=== PATIENT | male | born 1960 | race Caucasian/White ===

== ENCOUNTER 2016-10-02 18:02 | Emergency (ER) | payer OTHER ==
--- NOTE | 2016-10-02 18:19 | ED ---
General Adult HPI - General Stated complaint: fall,back pain Time Seen by Provider: 10/02/16 18:06 Source: RN notes reviewed - History of Present Illness Initial comments: 56-year-old male presents to the emergency Department chief complaint of fall. Patient states that he is going down his stairs and he missed a step and he fell down about 5 stairs. Patient states that he will abdominal stairs. Patient states he is having some left-sided rib pain. Patient does admit to some right shoulder pain as well. Patient states the pain is mild worse to movement or a deep breath. Patient states there is no radiation. Patient states constant and painful. Patient denies any leg pain. Patient states he did not hit his head there is no loss of consciousness. Patient states that he was concerned due to the rib pains without that he should be evaluated. Patient states he is not currently having any other symptoms at this time. Patient denies any recent fever, chills, shortness of breath, abdominal pain, nausea vomiting, numbness or tingling, dysuria or hematuria, constipation or diarrhea, headaches or visual changes, or any other current symptoms. - Related Data Home Medications Medication Instructions Recorded Confirmed OXcarbazepine [Trileptal] 300 mg PO DAILY 05/15/15 10/02/16 Methocarbamol [Robaxin] 500 mg PO TID 06/17/16 10/02/16 Mirtazapine [Remeron] 15 mg PO HS 06/17/16 10/02/16 Mometasone/Formoterol [Dulera 100 2 puff INHALATION RT-BID 06/17/16 10/02/16 Mcg/5 Mcg Inhaler] Venlafaxine HCl ER [Effexor Xr] 150 mg PO DAILY 06/17/16 10/02/16 Previous Rx's Medication Instructions Recorded Sennosides-Docusate Sodium 2 tab PO DAILY #60 tablet 06/23/16 [Senokot-S] Hydrocodone/Acetaminophen [[place] 1 each PO Q6HR PRN #20 tab 10/02/16 5-325] Allergies Allergy/AdvReac Type Severity Reaction Status Date / Time Penicillins Allergy Anaphylaxis Verified 10/02/16 19:04 Review of Systems ROS Statement: Those systems with pertinent positive or pertinent negative responses have been documented in the HPI. ROS Other: All systems not noted in ROS Statement are negative. Past Medical History Past Medical History: COPD, Osteoarthritis (OA) History of Any Multi-Drug Resistant Organisms: None Reported Past Surgical History: Hernia Repair, Orthopedic Surgery Additional Past Surgical History / Comment(s): LT SHOULDER SX Past Anesthesia/Blood Transfusion Reactions: No Reported Reaction Past Psychological History: Bipolar, Depression Smoking Status: Former smoker Past Alcohol Use History: None Reported Additional Past Alcohol Use History / Comment(s): QUIT SMOKING 60DAYS AGO. SMOKED 1/2 PPD FOR OVER 35 YRS Past Drug Use History: None Reported - Past Family History Mother History Unknown: Yes Additional Family Medical History / Comment(s): ADOPTED-FAMILY HX UNKNOWN General Exam - General Exam Comments Initial Comments: General: The patient is awake and alert, in no distress, and does not appear acutely ill. Eye: Pupils are equal, round and reactive to light, extra-ocular movements are intact; there is normal conjunctiva bilaterally. No signs of icterus. Ears, nose, mouth and throat: There are moist mucous membranes and no oral lesions. Neck: The neck is supple, there is no tenderness. Cardiovascular: There is a regular rate and rhythm. No murmur, rub or gallop is appreciated. Respiratory: Lungs are clear to auscultation, respirations are non-labored, breath sounds are equal. No wheezes, stridor, rales, or rhonchi. There is tenderness with patient along the posterior left rib cage in the lower aspect as well as along the lateral left rib cage Gastrointestinal: Soft, non-distended, non-tender abdomen without masses or organomegaly noted. There is no rebound or guarding present. No CVA tenderness. Bowel sounds are unremarkable. Back: There is no tenderness to palpation in the midline. There is no obvious deformity. No rashes noted. Musculoskeletal: Normal ROM, does have some tenderness over the anterior aspect of the right shoulder, There is no pedal edema. There is no calf tenderness or swelling. Sensation intact. Pulses equal bilaterally 2+. Neurological: CN II-XII intact, There are no obvious motor or sensory deficits. Coordination appears grossly intact. Speech is normal. Skin: Skin is warm and dry and no rashes or lesions are noted. Psychiatric: Cooperative, appropriate mood & affect, normal judgment. Course Vital Signs 10/02/16 18:20 Temperature 97.7 F Pulse Rate 71 Respiratory 14 Rate Blood Pressure 131/86 O2 Sat by Pulse 97 Oximetry Medical Decision Making - Medical Decision Making 56-year-old male presents for treatment of the stairs. This time we'll get x- rays as well as CT of the patient's head due to the nature of the fall. At this time x-rays and CAT scan are reviewed and negative with no acute process. The patient received Toradol injection. We did discuss the patient presenting for left-sided rib contusion and right shoulder sprain. We discussed follow-up and return parameters. We discussed the patient questions. He stated that he understood he is in agreement with plan. He will be discharged home. Disposition Clinical Impression: Contusion of rib on left side, Sprain of right shoulder, Fall Disposition: HOME SELF-CARE Condition: Stable Instructions: Rib Contusion (ED) Additional Instructions: Please use medication as discussed. Please follow up with family doctor if symptoms have not improved over the next two days. Please return to the emergency room if your symptoms increase or worsen or for any other concerns. Prescriptions: Hydrocodone/Acetaminophen [[place] 5-325] 1 each PO Q6HR PRN #20 tab PRN Reason: Pain Referrals: Jeronimo Mcmanus MD [Primary Care Provider] - 1-2 days Time of Disposition: 19:23
[2016-10-02 18:28] VITALS: TEMP 97.7
--- NOTE | 2016-10-02 18:57 | CT ---
EXAMINATION TYPE: CT brain jackeline landry DATE OF EXAM: 10/02/2016 6:45 PM COMPARISON: NONE HISTORY: Patient fell today. Patient complains of right shoulder pain and rib pain. Patient denies head and neck complaints at time of study. CT DLP: 1080.1 mGycm Automated exposure control for dose reduction was used. TECHNIQUE: CT scan of the head and cervical spine are performed without contrast. FINDINGS: Ventricles and sulci appear normal. There is no mass effect nor midline shift. There is n o sign of intracranial hemorrhage. The calvarium appears intact. The cervical vertebra show mild straightening. There is degenerative disc space narrowing at C5-6 C6- 7 with spurring of the endplates. Facet joints are intact. Skull base is intact. I see no fracture. T here is spurring of endplates also at C3-4. IMPRESSION: Spondylotic changes in the cervical spine. No fracture. Negative CT scan of the brain. Emphysema noted at the lung apices.
--- NOTE | 2016-10-02 19:14 | XR ---
EXAMINATION TYPE: XR ribs LT w pa chest xray DATE OF EXAM: 10/02/2016 7:01 PM COMPARISON: NONE HISTORY: Rib pain TECHNIQUE: 5 views FINDINGS: The lungs are clear. Heart and mediastinum are within normal limits. There is no sign of pl eural effusion or pneumothorax. Left ribs appear intact. IMPRESSION: Negative left rib exam.
--- NOTE | 2016-10-02 19:15 | XR ---
EXAMINATION TYPE: XR shoulder complete RT DATE OF EXAM: 10/02/2016 7:01 PM COMPARISON: NONE HISTORY: Shoulder pain TECHNIQUE: 3 views FINDINGS: There is spurring at the glenohumeral joint. I see no fracture nor dislocation. There is mi ld spurring at the AC joint. IMPRESSION: Osteoarthritis. No fracture.
[2016-10-02] MEDS ORDERED: KETOROLAC 60 MG/2 ML VIAL IM STA (19:21)
[2016-10-02 19:47] VITALS: BP 131/74; PULSE 69; RESP 16
== END 2016-10-02 19:45 | disposition home or self-care (01) ==
LOC: EC 18:02
DX: S43.401A Unspecified sprain of right shoulder joint, initial encounter (principal); S20.212A Contusion of left front wall of thorax, initial encounter; W10.9XXA Fall (on) (from) unspecified stairs and steps, initial encounter; J44.9 Chronic obstructive pulmonary disease, unspecified; Z79.899 Other long term (current) drug therapy; Z88.0 Allergy status to penicillin; Z87.891 Personal history of nicotine dependence
CPT/HCPCS: 71101; 73030; 72125; 70450; 99284; 96372; J1885

== ENCOUNTER → 2017-03-07 | Outpatient (CLI) | payer OTHER ==
--- NOTE | 2017-03-07 10:06 | XR ---
EXAMINATION TYPE: XR elbow limited LT DATE OF EXAM: 03/07/2017 COMPARISON: NONE HISTORY: 56-year-old male with left elbow pain and swelling TECHNIQUE: AP and lateral views FINDINGS: A couple ossific densities are noted overlying the olecranon measuring 6 mm 5 mm. There is overlying soft tissue swelling. Small anterior elbow joint effusion is nonspecific. Otherwise, no acute fractur e or dislocation. IMPRESSION: 1. Soft tissue swelling overlying the olecranon with a couple ossific fragments measuring 6 mm and 5 mm. In the setting of recent injury, fractured olecranon spurs or small avulsion fracture fragments i nvolving a portion of the triceps insertion should be considered. 2. Small nonspecific anterior elbow joint effusion. Otherwise, no acute osseous abnormality seen.
== END | disposition home or self-care (01) ==
LOC: RADXRMAIN 09:44
PROVIDERS: ATTEND Family Medicine
DX: M25.422 Effusion, left elbow (principal); M25.522 Pain in left elbow

== ENCOUNTER 2022-06-15 21:34 | Inpatient (IN) | payer OTHER ==
[2022-06-15 22:25] LABS: Basophils # (A) 0.1 k/uL (0-0.2); Basophils % (A) 1 %; Eosinophils # (A) 0.1 k/uL (0-0.7); Eosinophils % (A) 2 %; HCT 38.2 % (39.0-53.0); HGB 13.7 gm/dL (13.0-17.5); Lymphocytes # (A) 2.3 k/uL (1.0-4.8); Lymphocytes % (A) 45 %; MCH 33.5 pg (25.0-35.0); MCHC 35.9 g/dL (31.0-37.0); MCV 93.2 fL (80.0-100.0); Mean Platelet Volume 7.1; Monocytes # (A) 0.5 k/uL (0-1.0); Monocytes % (A) 9 %; Neutrophils % (A) 39 %; Platelet Count 230 k/uL (150-450); RDW 12.5 % (11.5-15.5); WBC 5.1 k/uL (3.8-10.6)
--- NOTE | 2022-06-15 22:30 | ED ---
Psych HPI - General Chief Complaint: Psychiatric Symptoms Stated Complaint: Mental health Time Seen by Provider: 06/15/22 21:38 Source: patient, EMS, RN notes reviewed, old records reviewed Mode of arrival: EMS Limitations: no limitations - History of Present Illness Initial Comments: This is a 62-year-old male to the emergency department for evaluation patient presents today for evaluation of alcohol intoxication. Insomnia 5 days, bipolar and depression, not currently suicidal or homicidal MD Complaint: suicidal ideation, feels depressed -: days(s) (5) Associated Psychiatric Symptoms: depression, racing thoughts History of same: Yes Quality: constant Improves With: none Worsens With: none Context: not taking psychiatric medications Associated Symptoms: denies other symptoms Treatments Prior to Arrival: placed on mental health hold If Self Harm: admits thoughts of self harm - Related Data Home Medications Medication Instructions Recorded Confirmed OXcarbazepine [Trileptal] 300 mg PO DAILY 05/15/15 10/02/16 Methocarbamol [Robaxin] 500 mg PO TID 06/17/16 10/02/16 Mirtazapine [Remeron] 15 mg PO HS 06/17/16 10/02/16 Mometasone/Formoterol [Dulera 100 2 puff INHALATION RT-BID 06/17/16 10/02/16 Mcg/5 Mcg Inhaler] Venlafaxine HCl ER [Effexor Xr] 150 mg PO DAILY 06/17/16 10/02/16 Previous Rx's Medication Instructions Recorded Sennosides-Docusate Sodium 2 tab PO DAILY #60 tablet 06/23/16 [Senokot-S] Hydrocodone/Acetaminophen [[place] 1 each PO Q6HR PRN #20 tab 10/02/16 5-325] Allergies Allergy/AdvReac Type Severity Reaction Status Date / Time Penicillins Allergy Anaphylaxis Verified 10/02/16 19:04 Review of Systems ROS Statement: Those systems with pertinent positive or pertinent negative responses have been documented in the HPI. ROS Other: All systems not noted in ROS Statement are negative. Past Medical History Past Medical History: COPD, Hypertension, Osteoarthritis (OA) History of Any Multi-Drug Resistant Organisms: None Reported Past Surgical History: Hernia Repair, Orthopedic Surgery Additional Past Surgical History / Comment(s): LT SHOULDER SX Past Anesthesia/Blood Transfusion Reactions: No Reported Reaction Past Psychological History: Bipolar, Depression Past Alcohol Use History: None Reported Past Drug Use History: None Reported - Past Family History Mother History Unknown: Yes Additional Family Medical History / Comment(s): ADOPTED-FAMILY HX UNKNOWN General Exam General appearance: alert, in no apparent distress Head exam: Present: atraumatic, normocephalic, normal inspection Eye exam: Present: normal appearance, PERRL, EOMI. Absent: scleral icterus, conjunctival injection, periorbital swelling ENT exam: Present: normal exam, mucous membranes moist Neck exam: Present: normal inspection. Absent: tenderness, meningismus, lymphadenopathy Respiratory exam: Present: normal lung sounds bilaterally. Absent: respiratory distress, wheezes, rales, rhonchi, stridor Cardiovascular Exam: Present: regular rate, normal rhythm, normal heart sounds. Absent: systolic murmur, diastolic murmur, rubs, gallop, clicks GI/Abdominal exam: Present: soft, normal bowel sounds. Absent: distended, tenderness, guarding, rebound, rigid Extremities exam: Present: normal inspection, full ROM, normal capillary refill. Absent: tenderness, pedal edema, joint swelling, calf tenderness Back exam: Present: normal inspection Neurological exam: Present: alert, oriented X3, CN II-XII intact Psychiatric exam: Present: normal affect, normal mood Skin exam: Present: warm, dry, intact, normal color. Absent: rash Course Vital Signs 06/15/22 21:50 Temperature 98.2 F Pulse Rate 86 Respiratory 18 Rate Blood Pressure 146/89 O2 Sat by Pulse 95 Oximetry - Reevaluation(s) Reevaluation #1: 06/15/22 23:38 Medical record is reviewed Reevaluation #2: 06/16/22 00:29 Patient informed results and questions answered Reevaluation #3: 06/16/22 00:29 Medical clear for psychiatric evaluation - Consultations Consultation #1: Spoke with [facility] will admit this patient Medical Decision Making - Medical Decision Making 62 male presents to the ER for evaluation of weakness. Patient is hyponatremic intoxicated states she hasn't slept in days. Patient will be admitted for resuscitation and monitoring for alcohol abuse and psychiatric consultation - Lab Data Result diagrams: 06/15/22 22:19 06/15/22 22:19 Lab Results 06/15/22 06/15/22 06/15/22 Range/Units 22:19 22:19 22:50 WBC 5.1 (3.8-10.6) k/uL RBC 4.10 L (4.30-5.90) m/uL Hgb 13.7 (13.0-17.5) gm/dL Hct 38.2 L (39.0-53.0) % MCV 93.2 (80.0-100.0) fL MCH 33.5 (25.0-35.0) pg MCHC 35.9 (31.0-37.0) g/dL RDW 12.5 (11.5-15.5) % Plt Count 230 (150-450) k/uL MPV 7.1 Neutrophils % 39 % Lymphocytes % 45 % Monocytes % 9 % Eosinophils % 2 % Basophils % 1 % Neutrophils # 2.0 (1.3-7.7) k/uL Lymphocytes # 2.3 (1.0-4.8) k/uL Monocytes # 0.5 (0-1.0) k/uL Eosinophils # 0.1 (0-0.7) k/uL Basophils # 0.1 (0-0.2) k/uL Sodium 125 L (137-145) mmol/L Potassium 4.5 (3.5-5.1) mmol/L Chloride 89 L (98-107) mmol/L Carbon Dioxide 19 L (22-30) mmol/L Anion Gap 17 mmol/L BUN 5 L (9-20) mg/dL Creatinine 0.56 L (0.66-1.25) mg/dL Est GFR (CKD-EPI)AfAm >90 (>60 ml/min/1.73 sqM) Est GFR (CKD-EPI)NonAf >90 (>60 ml/min/1.73 sqM) Glucose 99 (74-99) mg/dL Calcium 9.4 (8.4-10.2) mg/dL Urine Color Colorless Urine Appearance Clear (Clear) Urine pH 6.0 (5.0-8.0) Ur Specific [place] 1.001 (1.001-1.035) Urine Protein Negative (Negative) Urine Glucose (UA) Negative (Negative) Urine Ketones Negative (Negative) Urine Blood Negative (Negative) Urine Nitrite Negative (Negative) Urine Bilirubin Negative (Negative) Urine Urobilinogen <2.0 (<2.0) mg/dL Ur Leukocyte Esterase Negative (Negative) Salicylates <1.0 mg/dL Urine Opiates Screen Not Detected (NotDetected) Ur Oxycodone Screen Not Detected (NotDetected) Urine Methadone Screen Not Detected (NotDetected) Ur Propoxyphene Screen Not Detected (NotDetected) Acetaminophen <10.0 ug/mL Ur Barbiturates Screen Not Detected (NotDetected) U Tricyclic Antidepress Not Detected (NotDetected) Ur Phencyclidine Scrn Not Detected (NotDetected) Ur Amphetamines Screen Not Detected (NotDetected) U Methamphetamines Scrn Not Detected (NotDetected) U Benzodiazepines Scrn Not Detected (NotDetected) Urine Cocaine Screen Not Detected (NotDetected) U Marijuana (THC) Screen Not Detected (NotDetected) Serum Alcohol 127 mg/dL Disposition Clinical Impression: Depression, Hyponatremia, Weakness, Alcohol intoxication Disposition: ADMITTED IP TO THIS [facility] Condition: Fair Is patient prescribed a controlled substance at d/c from ED?: No Referrals: Jeronimo Mcmanus MD [Primary Care Provider] - 1-2 days Time of Disposition: 00:30
[2022-06-15 22:34] LABS: Acetaminophen <10.0 ug/mL; African American GFR (CKD) >90 (>60 ml/min/1.73 sqM); Anion Gap 17 mmol/L; Blood Urea Nitrogen 5 mg/dL (9-20); Calcium 9.4 mg/dL (8.4-10.2); Carbon Dioxide 19 mmol/L (22-30); Chloride 89 mmol/L (98-107); Glucose 99 mg/dL (74-99); Non-African American GFR(CKD) >90 (>60 ml/min/1.73 sqM); Potassium 4.5 mmol/L (3.5-5.1); Salicylate <1.0 mg/dL; Sodium 125 mmol/L (137-145)
[2022-06-15 22:42] LABS: Alcohol 127 mg/dL
[2022-06-15 23:01] LABS: Appearance,Urine Clear (Clear); Bilirubin,Urine Negative (Negative); Blood,Urine Negative (Negative); Color,Urine Colorless; Glucose,Urine (UA) Negative (Negative); Ketones,Urine Negative (Negative); Leukocyte Esterase,Urine Negative (Negative); Nitrite,Urine Negative (Negative); Protein,Urine Negative (Negative); Specific Gravity,Urine 1.001 (1.001-1.035); Urobilinogen,Urine <2.0 mg/dL (<2.0)
[2022-06-15 23:12] LABS: Amphetamine Screen,Urine Not Detected (NotDetected); Barbiturate Screen,Urine Not Detected (NotDetected); Benzodiazepines Screen,Urine Not Detected (NotDetected); Cocaine Screen,Urine Not Detected (NotDetected); Methadone Screen, Urine Not Detected (NotDetected); Opiate Screen,Urine Not Detected (NotDetected); Oxycodone Screen, Urine Not Detected (NotDetected); Phencyclidine Screen,Urine Not Detected (NotDetected); Tricyclic Antidepressant,Urine Not Detected (NotDetected); Urn Cannabinoid Scrn Not Detected (NotDetected)
[2022-06-16] MEDS ORDERED: IPRATROPIUM-ALBUTEROL 3 ML NEB INHALATION STA (00:18)
[2022-06-16] MEDS ORDERED: NALOXONE 0.4 MG/ML 1 ML VIAL IV PRN (00:18)
[2022-06-16] MEDS ORDERED: MORPHINE SULFATE 2 MG/ML SYRINGE IVP STA (00:18)
[2022-06-16] MEDS ORDERED: SODIUM CHLORIDE 0.9% 1,000 ML IV STA (00:18)
[2022-06-16] MEDS ORDERED: ONDANSETRON 4 MG/2 ML VIAL IVP PRN (00:18)
[2022-06-16] MEDS ORDERED: MORPHINE SULFATE 2 MG/ML SYRINGE IVP PRN (00:18)
[2022-06-16] MEDS ORDERED: ACETAMINOPHEN TAB 325 MG TAB PO PRN (00:18)
[2022-06-16] MEDS ORDERED: LORazepam 2 MG/ML INJ IV PRN ×3 (00:23)
[2022-06-16] MEDS ORDERED: THIAMINE 100 MG/ML 2 ML VIAL IM STA (00:23)
[2022-06-16] MEDS ORDERED: DEXAMETHASONE SOD PHOSPHATE 10 MG/ML 1 ML VIAL IVP STA (00:51)
[2022-06-16] MEDS: SODIUM CHLORIDE 0.9% 1,000 ML IV SCH ×2 (01:17→12:19)
--- NOTE | 2022-06-16 02:08 | XR ---
EXAMINATION TYPE: XR chest 1V portable DATE OF EXAM: 06/16/2022 COMPARISON: 10/02/2016 HISTORY: Chest pain TECHNIQUE: FINDINGS: Heart and mediastinum are normal. Lungs are clear of infiltrate. No heart failure. There ar e no hilar masses. Costophrenic angles are clear. IMPRESSION: No active cardiopulmonary disease. Normal heart. No change.
[2022-06-16] MEDS: IPRATROPIUM-ALBUTEROL 3 ML NEB INHALATION PRN ×4 (04:22→13:53)
[2022-06-16] MEDS: FOLIC ACID 1 MG TAB PO SCH (08:29)
[2022-06-16] MEDS: MULTIVITAMINS, THERA 1 EACH TAB PO SCH (08:29)
[2022-06-16 12:23] LABS: ALT 42 U/L (4-49); AST 43 U/L (17-59); African American GFR (CKD) >90 (>60 ml/min/1.73 sqM); Albumin 4.5 g/dL (3.5-5.0); Albumin/Globulin Ratio 1.8; Alkaline Phosphatase 82 U/L (38-126); Anion Gap 10 mmol/L; Blood Urea Nitrogen 8 mg/dL (9-20); Calcium 8.7 mg/dL (8.4-10.2); Carbon Dioxide 25 mmol/L (22-30); Chloride 95 mmol/L (98-107); Globulin 2.5 g/dL; Glucose 122 mg/dL (74-99); Magnesium 1.8 mg/dL (1.6-2.3); Non-African American GFR(CKD) >90 (>60 ml/min/1.73 sqM); Potassium 4.2 mmol/L (3.5-5.1); Sodium 130 mmol/L (137-145); Total Bilirubin 0.4 mg/dL (0.2-1.3)
[2022-06-16 12:51] LABS: Basophils % (A) 0 %; Eosinophils % (A) 1 %; HCT 37.9 % (39.0-53.0); HGB 12.6 gm/dL (13.0-17.5); Lymphocytes # (A) 1.1 k/uL (1.0-4.8); Lymphocytes % (A) 27 %; MCHC 33.1 g/dL (31.0-37.0); MCV 96.5 fL (80.0-100.0); Mean Platelet Volume 7.7; Monocytes # (A) 0.3 k/uL (0-1.0); Monocytes % (A) 7 %; Neutrophils # (A) 2.6 k/uL (1.3-7.7); Neutrophils % (A) 64 %; Platelet Count 218 k/uL (150-450); RBC 3.93 m/uL (4.30-5.90); WBC 4.1 k/uL (3.8-10.6)
[2022-06-16] MEDS ORDERED: NAPROXEN 250 MG TAB PO PRN (13:03)
[2022-06-16] MEDS: OXcarbazepine 300 MG TAB PO SCH ×2 (13:50→20:49)
[2022-06-16] MEDS: VENLAFAXINE HCL ER 75 MG CAP PO SCH (13:50)
[2022-06-16] MEDS: busPIRone HCl 5 MG TAB PO SCH ×2 (13:51→20:49)
--- NOTE | 2022-06-16 13:54 | P.CN ---
Psychiatric Consult - . Consult date: 06/16/22 Consult:: 06/16/22 13:17 IDENTIFYING DATA: This patient is a 62-year-old male, who currently lives with roommates and his brothers. He has no kids collect SSI. REASON FOR REFERRAL: Psychiatry was consulted for depression HISTORY OF PRESENT ILLNESS: The patient presented to the hospital for alcohol intoxication and also speaking about insomnia. Patient had a urine drug screen that was negative. Blood alcohol level was 127 on admission. He was hyponatremic. Patient claims that he lives with his 2 brothers who "got into it" last night. He states that they got into an argument and have been fighting with each other yelling at each other. He states that he was so upset and had high levels of anxiety being around them. He states that he left the house and called 911 because he was feeling upset and angry. He states that he was not feeling suicidal at that time. He claims that he can't remember much else about what happened yesterday. He states that he does take his medications regularly and was requesting help him today. He states that he has bipolar depression and sees Dr. meier at [facility]. He claims that he drinks about 2 call boys of beer per day. Denies any withdrawal symptoms at this time. He claims that his sleep has been on and off for the past few days because of his loud roommate who keeps him up at night. He states that his appetite is fair. At this time patient denies any suicidal or homical ideations, intent or plan. Patient denies any auditory, visual hallucinations and denies any paranoia or delusions. Patients admits to using alcohol as noted above and cigarettes daily. PAST PSYCHIATRIC HISTORY: Patient has a a history of bipolar depression.. Patient currently takes Trileptal, BuSpar, Remeron, Effexor. Patient claims that he was last psychiatrically admitted several years ago to the mental health unit. Patient claims that he goes to [facility] for follow-up. Patient denies any history of suicide attempts in the past. Past Medical History: COPD, Hypertension, Osteoarthritis (OA) History of Any Multi-Drug Resistant Organisms: None Reported ALLERGIES: as per EMR. CHEMICAL DEPENDENCY HISTORY: as per HPI. FAMILY PSYCHIATRIC/SUBSTANCE USE HISTORY: denies SOCIAL HISTORY: Patient was born and raised in [facility] [place] [facility] [place] [facility]. 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 He is on SSI this time. He denies any legal history. Does not have any kids. He lives with roommates and his brothers. MENTAL STATUS EXAM: General Appearance: Patient appears to have an eye patch, stated age is alert, pleasant, and attempts to be cooperative. Patient appears to have fair hygiene and grooming wearing hospital gown with fair eye contact. Behavior: Patient is calmly lying in bed without any agitated behavior. Somewhat anxious. Speech: Patient's speech is fluent and nonpressured. Mood/Affect: Patient reports their mood is "okay but anxious", affect is congruent Suicidality/Homicidality: Patient denies having any suicidal or homicidal ideation intent or plan. Perceptions: Patient denies any visual hallucinations and denies any auditory hallucinations Though content/process: There is no evidence of any delusional thought content and thought process is linear and goal-directed. Focused on obtaining his medications. Future oriented. Memory and concentration: AOX3, grossly intact for the purposes of this session. Can spell "WORLD" backwards Judgment and insight: Chronically poor IMPRESSIONS: Bipolar depression Alcohol use disorder Nicotine dependence PLAN: -At this time patient DOES NOT meet criteria for inpatient psychiatric admission. -Would recommend the following medication changes/additions: Can continue current home medications including Trileptal, BuSpar, Remeron and Effexor as prescribed. -CIWA protocol with PRN Ativan for alcohol withdrawal. Continue to monitor vital signs. -Patient can continue following up at [facility] with Dr Meier -Bricklayer Supervisor spoke with patient about substance abuse and the harmful effects on medical and mental health, patient verbally understood and agreed. -hand bindery assembly worker to provide patient substance use treatment resources including AA/NA meetings in the community. -Communicated plan to patient's nurse -Psychiatry will sign off at this time -Please contact with any questions. 06/16/22 13:48
--- NOTE | 2022-06-16 14:17 | P.HPIM ---
History of Present Illness H&P Date: 06/16/22 This is a pleasant 62-year-old male who presented to the emergency department for acute alcohol intoxication. Patient reports he has been out of his medications. Patient reports he follows with Dr. Mcmanus in the outpatient setting with a past medical history of COPD, hypertension, osteoarthritis, bipolar depression. Patient admits to drinking and had a couple of beers at the house and some unwanted guests were there and patient became nervous with anxiety and called 911. Patient does report he occasionally smokes and denies any other illicit drug use. Patient also reports he follows with [facility] for his bipolar depression and psychiatric medications. Patient was placed on CIWA protocol with psychiatry consulted and also admitted for hyponatremia with a sodium of 125. Review Of Systems: Constitutional: No fever, no chills, no night sweats. No weight change. No weakness, fatigue or lethargy. No daytime sleepiness. EENT: No headache. No blurred vision or double vision, no loss of vision. No loss of Hearing, no ringing in the ears, no dizziness. No nasal drainage or congestion. No epistaxis. No sore throat. Lungs: No shortness of breath, cough, no sputum production. No wheezing. Cardiovascular: No chest pain, no lower extremity edema. No palpitations. No paroxysmal nocturnal dyspnea. No orthopnea. No lightheadedness or dizziness. No syncopal episodes. Abdominal: No abdominal pain. No nausea, vomiting. No diarrhea. No constipation. No bloody or tarry stools.. No loss of appetite. Genitourinary: No dysuria, increased frequency, urgency. No urinary retention. Musculoskeletal: No myalgias. No muscle weakness, no gait dysfunction, no frequent falls. No back pain. No neck pain. Integumentary: No wounds, no lesions. No rash or pruritus. No unusual brui sing. No change in hair or nails. Neurologic: No aphasia. No facial droop. No change in mentation. No head injury. No headache. No paralysis. No paresthesia. Psychiatric: Reports depression. Reports anxiety. No mood swings. Reports continued drinking Endocrine: No abnormal blood sugars. No weight change. No excessive sweating or thirst. No cold intolerance. PHYSICAL EXAMINATION: GENERAL: The patient is alert and oriented x4, Well developed, well nourished. HEENT: Pupils are round and equally reacting to light. EOMI. no scleral icterus. No conjunctival pallor. Normocephalic, atraumatic. No pharyngeal erythema. No thyromegaly. CARDIOVASCULAR: S1 and S2 muffled PULMONARY: diminished breath sounds bilaterally with no wheezing or rhonchi noted. ABDOMEN: soft. Nontender on exam. non-distended, normoactive bowel sounds. No palpable organomegaly. MUSCULOSKELETAL: No joint swelling or deformity. EXTREMITIES: No cyanosis, clubbing, or pedal edema. NEUROLOGICAL: Gross neurological examination did not reveal any focal deficits. SKIN: No rashes. Assessment: Acute alcohol intoxication Hyponatremia with a sodium of 125 possibly secondary to poor solute intake and alcohol use History of COPD, not in exacerbation Hypertension Osteoarthritis History of bipolar depression Continued ongoing nicotine dependence, some days GI prophylaxis DVT prophylaxis Full code Plan: Recommend to continue with current medications and management and psychiatry consulted. Patient with a history of depression and follows with [facility] in the outpatient setting. Patient denies any suicidal ideation or thoughts of wanting to harm himself or others. Patient reports he has not been taking his medications over the last couple of days and experiencing increased anxiety and depression. Patient was placed on CIWA protocol although not currently having any signs of withdrawal. Patient was also placed on IV hydration for a sodium of 125 and repeat labs this morning show a sodium of 1:30 and will decrease the amount of fluids. Kidney functions within normal limits and magnesium 1.8. Urine drug screen was negative and serum alcohol level is 127 on admission. We'll continue to monitor overnight for any further signs of withdrawal and have psychiatry evaluate the patient and resume home medications. Patient is agreeable with this and encouraged oral intake along with increased activity as tolerated. Will follow-up with repeat labs in the a.m. with possible discharge in 24 hours. Social work consulted to provide resources for AA and alcohol rehab services. The impression and plan of care has been dictated by Lamar Davis, nurse practitioner as directed. Dr. Edith MD I have performed a history and examination and MDM of this patient, discussed th with the dictator, and agree with the dictator's assessment and plan as written ,documented as a scribe. Based on total visit time, I have performed more than 50% of the visit. Any additional findings or plans will be noted. Past Medical History Past Medical History: COPD, Hypertension, Osteoarthritis (OA) History of Any Multi-Drug Resistant Organisms: None Reported Past Surgical History: Hernia Repair, Orthopedic Surgery Additional Past Surgical History / Comment(s): LT SHOULDER SX Past Anesthesia/Blood Transfusion Reactions: No Reported Reaction Past Psychological History: Bipolar, Depression Past Alcohol Use History: None Reported Past Drug Use History: None Reported - Past Family History Mother History Unknown: Yes Additional Family Medical History / Comment(s): ADOPTED-FAMILY HX UNKNOWN Medications and Allergies Home Medications Medication Instructions Recorded Confirmed Type Mirtazapine [Remeron] 30 mg PO HS 06/16/22 06/16/22 History Naproxen Sodium [Aleve] 220 mg PO BID PRN 06/16/22 06/16/22 History OXcarbazepine [Trileptal] 300 mg PO BID 06/16/22 06/16/22 History Venlafaxine HCl ER [Effexor Xr] 225 mg PO DAILY 06/16/22 06/16/22 History busPIRone HCL 15 mg PO TID 06/16/22 06/16/22 History Allergies Allergy/AdvReac Type Severity Reaction Status Date / Time Penicillins Allergy Anaphylaxis Verified 06/16/22 07:53 Physical Exam Vitals: Vital Signs Temp Pulse Resp BP Pulse Ox 06/16/22 07:32 84 06/16/22 07:24 84 06/16/22 04:30 80 06/16/22 04:20 80 06/16/22 04:00 93 19 140/82 93 L 06/16/22 00:56 101 H 18 137/91 94 L 06/16/22 00:38 88 06/16/22 00:28 88 06/15/22 21:50 98.2 F 86 18 146/89 95 Intake and Output 06/15/22 06/16/22 06/16/22 22:59 06:59 14:59 Other: Weight 66.678 kg Results CBC & Chem 7: 06/16/22 11:46 06/16/22 11:46 Labs: Abnormal Lab Results - Last 24 Hours (Table) 06/15/22 06/15/22 Range/Units 22:19 22:19 RBC 4.10 L (4.30-5.90) m/uL Hct 38.2 L (39.0-53.0) % Sodium 125 L (137-145) mmol/L Chloride 89 L (98-107) mmol/L Carbon Dioxide 19 L (22-30) mmol/L BUN 5 L (9-20) mg/dL Creatinine 0.56 L (0.66-1.25) mg/dL Thrombosis Risk Factor Assmnt - DVT/VTE Prophylaxis DVT/VTE Prophylaxis: Mechanical Prophylaxis ordered Assessment and Plan Time with Patient: Greater than 30
[2022-06-16] MEDS ORDERED: LORazepam 1 MG/0.5 ML VIAL IV PRN ×3 (14:50→14:51)
[2022-06-16] MEDS: ALBUTEROL NEBULIZED 2.5 MG/3 ML INHALATION SCH ×2 (16:09→21:00)
[2022-06-16] MEDS ORDERED: MIRTAZAPINE 15 MG TAB PO SCH (21:00)
[2022-06-17] MEDS: SODIUM CHLORIDE 0.9% 1,000 ML IV SCH (00:37)
[2022-06-17] MEDS: busPIRone HCl 5 MG TAB PO SCH (07:32)
[2022-06-17] MEDS: MULTIVITAMINS, THERA 1 EACH TAB PO SCH (07:32)
[2022-06-17] MEDS: VENLAFAXINE HCL ER 75 MG CAP PO SCH (07:32)
[2022-06-17] MEDS: OXcarbazepine 300 MG TAB PO SCH (07:32)
[2022-06-17] MEDS: FOLIC ACID 1 MG TAB PO SCH (07:32)
[2022-06-17] MEDS: ALBUTEROL NEBULIZED 2.5 MG/3 ML INHALATION SCH ×2 (08:21→11:27)
[2022-06-17] MEDS ORDERED: THIAMINE 100 MG TAB PO SCH (09:00)
[2022-06-17 09:25] VITALS: RESP 17
[2022-06-17 10:49] LABS: Basophils # (A) 0.04 X 10*3/uL (0.00-0.10); Basophils % (A) 0.9 %; Eosinophils # (A) 0.05 X 10*3/uL (0.04-0.35); Eosinophils % (A) 1.1 %; HCT 30.8 % (39.6-50.0); HGB 10.6 g/dL (13.0-17.0); Immature Grans, Automated 0.2 %; Lymphocytes # (A) 1.56 X 10*3/uL (0.90-5.00); Lymphocytes % (A) 35.7 %; MCH 32.3 pg (27.0-32.0); MCHC 34.4 g/dL (32.0-37.0); MCV 93.9 fL (80.0-97.0); Mean Platelet Volume 9.2 fL (9.5-12.2); Monocytes # (A) 0.43 X 10*3/uL (0.20-1.00); Monocytes % (A) 9.8 %; NRBC Per 100 WBC 0 /100 WBCS (0.0-0.0); Neutrophils # (A) 2.28 X 10*3/uL (1.80-7.70); Neutrophils % (A) 52.3 %; Platelet Count 180 X 10*3/uL (140-440); RBC 3.28 X 10*6/uL (4.40-5.60); RDW 13.4 % (11.5-14.5); WBC 4.37 X 10*3/uL (4.50-10.00)
[2022-06-17 11:09] LABS: African American GFR (CKD) 125.8 (60.0-200.0); Albumin 3.6 g/dL (3.8-4.9); Albumin/Globulin Ratio 1.89 (1.60-3.17); Anion Gap 9.5 mmol/L (10.00-18.00); BUN/Creat Ratio 10.17 Ratio (12.00-20.00); Blood Urea Nitrogen 6.1 mg/dL (9.0-27.0); Calcium 8.3 mg/dL (8.7-10.3); Carbon Dioxide 24.5 mmol/L (20.0-27.5); Globulin 1.9 g/dL (1.6-3.3); Non-African American GFR(CKD) 108.5 (60.0-200.0); Phosphorus 3.9 mg/dL (2.4-5.1); Potassium 3.8 mmol/L (3.5-5.5); Total Bilirubin 0.3 mg/dL (0.30-1.20); Total Protein 5.5 g/dL (6.2-8.2)
[2022-06-17 11:36] VITALS: PULSE 68
[2022-06-17 14:27] VITALS: BP 169/92; TEMP 98.2
--- NOTE | 2022-06-19 17:15 | P.DS ---
Providers Date of admission: 06/16/22 00:19 Expected date of discharge: 06/17/22 Attending physician: Ahsan Rojas Consults: 06/16/22 00:18 Consult Physician Routine Consulting Provider: Antolin Dominguez Consult Reason/Comments: depression Do you want consulting provider notified?: Yes Primary care physician: Jeronimo Mcmanus Hospital Course: Final diagnosis Acute alcohol intoxication Hyponatremia with a sodium of 125 possibly secondary to poor solute intake and alcohol use History of COPD, not in exacerbation Hypertension Osteoarthritis History of bipolar depression Continued ongoing nicotine dependence, some days GI prophylaxis DVT prophylaxis Full code Discharge disposition Patient is being discharged in a stable condition with guarded prognosis to home. Patient will follow-up with Dr. Mcmanus in the outpatient setting upon discharge. Patient is to follow with [facility] as scheduled. Total time taken is greater than 35 minutes. Hospital course This is a 62-year-old male who was recently admitted acute alcohol intoxication and was placed on CIWA. Patient was monitored closely and not requiring any CIWA for withdrawals. Patient was seen by psychiatry for depression and follows and gets his medications from [facility]. Patient denies any suicidal ideation or thoughts of harming self or others. Sodium improved to 130 and encouraged oral intake. Avoid all alcohol intake. Script for repeat labs in 2-3 days and follow up with Dr. Mcmanus. Currently no reports of chest pain, shortness of breath, or palpitations. Patient is afebrile. No reports of nausea or vomiting and patient is tolerating diet. Patient will be discharged home today. Physical exam: Gen: This is a 62 year old male who is awake, alert and oriented x3. thin built male HEENT: Head is atraumatic, normocephalic. Pupils equal, round. Sclerae is anicteric. NECK: Supple. No JVD. No lymphadenopathy. No thyromegaly. LUNGS: Clear to auscultation. No wheezes or rhonchi. No intercostal retractions. HEART: Regular rate and rhythm. No murmur. ABDOMEN: Soft. Bowel sounds are present. No masses. No tenderness. EXTREMITIES: No pedal edema. No calf tenderness. NEUROLOGICAL: Patient is awake, alert and oriented x3. Cranial nerves 2 through 12 are grossly intact. Please refer to medication reconciliation sheet for a list of medications. The impression and plan of care has been dictated by Lamar Davis, Nurse Practitioner as directed. Dr. Edith MD I have performed a history and examination and MDM of this patient, discussed the same with the dictator, and agree with the dictator's assessment and plan as written ,documented as a scribe. Based on total visit time, I have performed more than 50% of the visit. Patient Condition at Discharge: Fair Plan - Discharge Summary Discharge Rx Participant: No New Discharge Prescriptions: New Albuterol Inhaler [Ventolin Hfa Inhaler] 2 puff INHALATION QID 30 Days #8 gm Folic Acid 1 mg PO DAILY #30 tab Multivitamins, Thera [Multivitamin (formulary)] 1 each PO DAILY #30 tab Acetaminophen Tab [Tylenol] 650 mg PO Q6HR PRN tab PRN Reason: Mild Pain Or Fever > 100.5 Thiamine [Vitamin B-1] 100 mg PO DAILY #30 tab Continue Venlafaxine HCl ER [Effexor XR] 225 mg PO DAILY OXcarbazepine [Trileptal] 300 mg PO BID Naproxen Sodium [Aleve] 220 mg PO BID PRN PRN Reason: Pain Mirtazapine [Remeron] 30 mg PO HS busPIRone HCL 15 mg PO TID Discharge Medication List Mirtazapine [Remeron] 30 mg PO HS 06/16/22 [History] Naproxen Sodium [Aleve] 220 mg PO BID PRN 06/16/22 [History] OXcarbazepine [Trileptal] 300 mg PO BID 06/16/22 [History] Venlafaxine HCl ER [Effexor XR] 225 mg PO DAILY 06/16/22 [History] busPIRone HCL 15 mg PO TID 06/16/22 [History] Acetaminophen Tab [Tylenol] 650 mg PO Q6HR PRN tab 06/17/22 [Rx] Albuterol Inhaler [Ventolin Hfa Inhaler] 2 puff INHALATION QID 30 Days #8 gm 06/17/22 [Rx] Folic Acid 1 mg PO DAILY #30 tab 06/17/22 [Rx] Multivitamins, Thera [Multivitamin (formulary)] 1 each PO DAILY #30 tab 06/17/22 [Rx] Thiamine [Vitamin B-1] 100 mg PO DAILY #30 tab 06/17/22 [Rx] Follow up Appointment(s)/Referral(s): Jeronimo Mcmanus MD [Primary Care Provider] - 06/22/22 9:30 am Ambulatory/Diagnostic Orders: Basic Metabolic Panel [LAB.AMB] Time Frame: 2 Days, Location: None Selected Patient Instructions/Handouts: Abuse of Alcohol (DC) Activity/Diet/Wound Care/Special Instructions: Activity Limited until follow-up Follow-up with primary care provider on discharge Continue taking medications as prescribed Continue with [facility] Avoid any alcohol intake or exposure Discharge/Stand Alone Forms: AA Meetings [place], Outpatient Counseling, Inp Substance Abuse Facilities Discharge Disposition: HOME SELF-CARE
== END 2022-06-17 15:20 | disposition home or self-care (01) | DRG 641 ==
LOC: EC 21:34 → 4SSUR 06-16 00:19
PROVIDERS: ADMIT Hospitalist; ATTEND Hospitalist
PROC: HZ2ZZZZ Detoxification Services for Substance Abuse Treatment (ICD-10-PCS; principal; 2022-06-16)
DX: E87.1 Hypo-osmolality and hyponatremia (principal); R45.851 Suicidal ideations; F31.30 Bipolar disorder, current episode depressed, mild or moderate severity, unspecified; F10.129 Alcohol abuse with intoxication, unspecified; J44.9 Chronic obstructive pulmonary disease, unspecified; I10 Essential (primary) hypertension; M19.90 Unspecified osteoarthritis, unspecified site; G47.00 Insomnia, unspecified; T50.916A Underdosing of multiple unspecified drugs, medicaments and biological substances, initial encounter; F17.200 Nicotine dependence, unspecified, uncomplicated; Y90.6 Blood alcohol level of 120-199 mg/100 ml; F17.210 Nicotine dependence, cigarettes, uncomplicated; Z79.899 Other long term (current) drug therapy; Z79.51 Long term (current) use of inhaled steroids; Z88.0 Allergy status to penicillin; Z91.14 Patient's other noncompliance with medication regimen
CPT/HCPCS: 36415; 71045; 80048; 80053; 80143; 80179; 80306; 80320; 81003; 83735; 84100; 85025; 94640; 96361; 96372; 96374; 96376; 99285

== ENCOUNTER 2023-08-14 18:47 | Emergency (ER) | payer OTHER ==
[2023-08-14 19:07] VITALS: RESP 18; TEMP 98.2
--- NOTE | 2023-08-14 19:30 | ED ---
SOB HPI - General Source: patient, EMS, RN notes reviewed Mode of arrival: EMS Limitations: no limitations <Vero Gil - Last Filed: 08/14/23 19:29> - History of Present Illness MD Complaint: shortness of breath, cough Onset/Timin -: month(s) Severity scale (1-10): 0 Consistency: constant Improves With: nothing Worsens With: nothing Known History Of: COPD Associated Symptoms: cough, sputum production Treatments Prior to Arrival: none - Related Data Home Oxygen Therapy: No <Ruperto Kincaid - Last Filed: 08/23/23 07:28> - General Chief Complaint: Shortness of Breath Stated Complaint: difficulty breathing Time Seen by Provider: 08/14/23 19:29 - History of Present Illness Initial Comments: patient is a 63-year-old male presented ER via EMS with chief complaint of shortness of breath. Patient states he has COPD and has increasing cough. Patient denies any fevers or chills. (Vero Gil) - Related Data Home Medications Medication Instructions Recorded Confirmed Mirtazapine [Remeron] 30 mg PO HS 06/16/22 06/16/22 Naproxen Sodium [Aleve] 220 mg PO BID PRN 06/16/22 06/16/22 OXcarbazepine [Trileptal] 300 mg PO BID 06/16/22 06/16/22 Venlafaxine HCl ER [Effexor XR] 225 mg PO DAILY 06/16/22 06/16/22 busPIRone HCL 15 mg PO TID 06/16/22 06/16/22 Previous Rx's Medication Instructions Recorded Acetaminophen Tab [Tylenol] 650 mg PO Q6HR PRN tab 06/17/22 Albuterol Inhaler [Ventolin Hfa 2 puff INHALATION QID 30 Days #8 gm 06/17/22 Inhaler] Folic Acid 1 mg PO DAILY #30 tab 06/17/22 Multivitamins, Thera [Multivitamin 1 each PO DAILY #30 tab 06/17/22 (formulary)] Thiamine [Vitamin B-1] 100 mg PO DAILY #30 tab 06/17/22 Albuterol Inhaler [Ventolin Hfa 2 puff INHALATION Q4HR PRN #8 gm 08/14/23 Inhaler] Azithromycin [Zithromax] 0 mg PO DIRECTED #6 tab 08/14/23 predniSONE 60 mg PO DAILY #30 tab 08/14/23 Allergies Allergy/AdvReac Type Severity Reaction Status Date / Time Penicillins Allergy Anaphylaxis Verified 08/14/23 18:59 Review of Systems ROS Other: All systems not noted in ROS Statement are negative. <Vero Gil - Last Filed: 08/14/23 19:29> ROS Other: All systems not noted in ROS Statement are negative. Constitutional: Denies: fever, chills Respiratory: Reports: cough, dyspnea, wheezes Cardiovascular: Denies: chest pain, palpitations, edema Gastrointestinal: Denies: abdominal pain, nausea, vomiting, diarrhea Genitourinary: Denies: dysuria, hematuria Musculoskeletal: Denies: back pain Skin: Denies: rash Neurological: Denies: headache, weakness, numbness <Ruperto Kincaid - Last Filed: 08/23/23 07:28> ROS Statement: Those systems with pertinent positive or pertinent negative responses have been documented in the HPI. Past Medical History Past Medical History: COPD, Hypertension, Osteoarthritis (OA) History of Any Multi-Drug Resistant Organisms: None Reported Past Surgical History: Hernia Repair, Orthopedic Surgery Additional Past Surgical History / Comment(s): LT SHOULDER SX Past Anesthesia/Blood Transfusion Reactions: No Reported Reaction Past Psychological History: Bipolar, Depression Past Alcohol Use History: None Reported Past Drug Use History: None Reported - Past Family History Mother History Unknown: Yes Additional Family Medical History / Comment(s): ADOPTED-FAMILY HX UNKNOWN <Vero Gil - Last Filed: 08/14/23 19:29> General Exam Limitations: no limitations <Vero Gil - Last Filed: 08/14/23 19:29> Limitations: no limitations General appearance: alert, in no apparent distress Head exam: Present: atraumatic, normocephalic Eye exam: Present: normal appearance. Absent: scleral icterus, conjunctival injection Neck exam: Present: normal inspection Respiratory exam: Present: wheezes, decreased breath sounds. Absent: respiratory distress, rales, rhonchi, stridor, accessory muscle use Cardiovascular Exam: Present: regular rate, normal rhythm, normal heart sounds. Absent: systolic murmur, diastolic murmur, rubs, gallop GI/Abdominal exam: Present: soft. Absent: distended, tenderness, guarding, rebound, rigid, mass Extremities exam: Present: normal inspection, normal capillary refill. Absent: pedal edema, calf tenderness Back exam: Present: normal inspection. Absent: CVA tenderness (R), CVA tenderness (L) Neurological exam: Present: alert Skin exam: Present: warm, dry, intact, normal color. Absent: rash <Ruperto Kincaid - Last Filed: 08/23/23 07:28> - General Exam Comments Initial Comments: Visual Physical Exam Vital signs reviewed General: Well-appearing, nontoxic, no acute distress. Head: Normocephalic, atraumatic Eyes: PERRLA, EOMI ENT: Airway patent Chest: Nonlabored breathing Skin: No visual rash, normal skin tone Neuro: Alert and oriented 3 Musculoskeletal: No gross abnormalities (Vero Gil) Course Vital Signs 08/14/23 08/14/23 08/14/23 18:56 22:55 23:06 Temperature 98.2 F Pulse Rate 91 71 77 Respiratory 18 18 Rate Blood Pressure 123/62 147/89 O2 Sat by Pulse 96 96 Oximetry 08/14/23 08/15/23 23:23 00:10 Temperature 98.2 F Pulse Rate 78 77 Respiratory 18 Rate Blood Pressure 144/78 O2 Sat by Pulse 95 Oximetry Medical Decision Making <Vero Gil - Last Filed: 08/14/23 19:29> <Ruperto Kincaid - Last Filed: 08/23/23 07:28> - Medical Decision Making I performed the quick note portion of the exam. Electronically signed by Vero Gil PA-C (Vero Gil) The patient had chest x-ray which I interpreted as showing diffuse patches of infiltrate possibly viral in nature Was pt. sent in by a medical professional or institution ([facility], [facility], urgent care, hospital, or long-term...) When possible be specific @ -[No] Did you speak to anyone other than the patient for history (EMS, parent, family, police, friend...)? What history was obtained from this source @ -[No] Did you review nursing and triage notes (agree or disagree)? Why? @ -[I reviewed and agree with nursing and triage notes] Were old charts reviewed (outside hosp., previous admission, EMS record, old EKG, old radiological studies, urgent care reports/EKG's, long-term records)? Report findings @ -[No old charts were reviewed] Differential Diagnosis (chest pain, altered mental status, abdominal pain women, abdominal pain men, vaginal bleeding, weakness, fever, dyspnea, syncope, headache, dizziness, GI bleed, back pain, seizure, CVA, palpatations, mental health, musculoskeletal)? @ -[Differential Dyspnea: Coronary syndrome, arrhythmia, tamponade, asthma, COPD, pulmonary embolism, pneumonia, pneumothorax, pulmonary effusion, anaphylaxis, diabetic ketoacidosis, flailed chest, pulmonary contusion, diaphragmatic rupture, anemia, neuro muscular, this is not meant to be an all-inclusive list. EKG interpreted by me (3pts min.). @ -[As above] X-rays interpreted by me (1pt min.). @ -[I interpreted as above CT interpreted by me (1pt min.). @ -[None done] U/S interpreted by me (1pt. min.). @ -[None done] What testing was considered but not performed or refused? (CT, X-rays, U/S, labs)? Why? @ -[None] What meds were considered but not given or refused? Why? @ -[None] Did you discuss the management of the patient with other professionals (professionals i.e. , PA, [facility] [facility]ER, lab, RT, psych nurse, social work case manager, paid internship, teacher, maritime officer, case planner)? Give summary @ -[No] Was smoking cessation discussed for >3mins.? @ -[No] Was critical care preformed (if so, how long)? @ -[No] Were there social determinants of health that impacted care today? How? (Homelessness, low income, unemployed, alcoholism, drug addiction, transportation, low edu. Level, literacy, decrease access to med. care, senior care, rehab)? @ -[No] Was there de-escalation of care discussed even if they declined (Discuss DNR or withdrawal of care, Hospice)? DNR status @ -[No] What co-morbidities impacted this encounter? (DM, HTN, Smoking, COPD, CAD, Cancer, CVA, ARF, Chemo, Hep., AIDS, mental health diagnosis, sleep apnea, morbid obesity)? @ -[None] Was patient admitted / discharged? Hospital course, mention meds given and route, prescriptions, significant lab abnormalities, going to OR and other pertinent info. @ -[Patient is a 63-year-old man presenting with cough and dyspnea. He is feeling better following treatment here for what appears to be exacerbation of COPD. There may also be mild viral pneumonitis. Discussed admission but at this point the patient would prefer to go home with continued treatment. We discussed appropriate further care and follow-up Undiagnosed new problem with uncertain prognosis? @ -[No] Drug Therapy requiring intensive monitoring for toxicity (Heparin, Nitro, Insulin, Cardizem)? @ -[No] Were any procedures done? @ -[No] Diagnosis/symptom? @ -[Acute exacerbation of COPD Acute, or Chronic, or Acute on Chronic? @ -Acute on chronic Uncomplicated (without systemic symptoms) or Complicated (systemic symptoms)? @ -[Uncomplicated Side effects of treatment? @ -[No] Exacerbation, Progression, or Severe Exacerbation? @ -[Exacerbation Poses a threat to life or bodily function? How? (Chest pain, [place], [place], pneumonia, PE, COPD, DKA, ARF, appy, cholecystitis, CVA, Diverticulitis, Homicidal, Suicidal, threat to staff... and all critical care pts) @ -[No] (Ruperto Kincaid) - Lab Data Lab Results 08/14/23 Range/Units 20:21 Influenza Type A (PCR) Not Detected (Not Detectd) Influenza Type B (PCR) Not Detected (Not Detectd) RSV (PCR) Not Detected (Not Detectd) SARS-CoV-2 (PCR) Not Detected (Not Detectd) Disposition <Vero Gil - Last Filed: 08/14/23 19:29> Is patient prescribed a controlled substance at d/c from ED?: No <Ruperto Kincaid - Last Filed: 08/23/23 07:28> Clinical Impression: COPD exacerbation Disposition: HOME SELF-CARE Condition: Good Instructions (If sedation given, give patient instructions): COPD (Chronic Obstructive Pulmonary Disease) (ED) Prescriptions: predniSONE 60 mg PO DAILY #30 tab Albuterol Inhaler [Ventolin Hfa Inhaler] 2 puff INHALATION Q4HR PRN #8 gm PRN Reason: Wheezing Azithromycin [Zithromax] 0 mg PO DIRECTED #6 tab Referrals: Jeronimo Mcmanus MD [Primary Care Provider] - 1-2 days
--- NOTE | 2023-08-14 21:28 | XR ---
EXAMINATION TYPE: XR chest 2V DATE OF EXAM: 08/14/2023 COMPARISON: 06/16/2022 HISTORY: 63-year-old male with cough TECHNIQUE: PA and lateral views FINDINGS: Heart normal size. Aorta and pelvic vasculature within normal limits. There are mild patchy interstit ial densities. No sidra consolidation or pleural effusion. Mild hyperinflation. IMPRESSION: COPD and subtle patchy interstitial densities. Unable to exclude underlying atypical/COVID pneumonia.
[2023-08-14] MEDS ORDERED: AZITHROMYCIN 500 MG TAB PO STA (22:57)
[2023-08-14] MEDS ORDERED: predniSONE 20 MG TAB PO STA (22:57)
[2023-08-14] MEDS ORDERED: ALBUTEROL NEBULIZED 2.5 MG/3 ML INHALATION STA (22:57)
[2023-08-14] MEDS ORDERED: IPRATROPIUM-ALBUTEROL 3 ML NEB INHALATION STA (22:57)
[2023-08-15 00:34] VITALS: BP 144/78; PULSE 77
== END 2023-08-15 00:11 | disposition home or self-care (01) ==
LOC: EC 18:47
DX: J44.1 Chronic obstructive pulmonary disease with (acute) exacerbation (principal); I10 Essential (primary) hypertension; F41.9 Anxiety disorder, unspecified; F32.A Depression, unspecified; Z79.899 Other long term (current) drug therapy; Z88.0 Allergy status to penicillin; Z20.822 Contact with and (suspected) exposure to COVID-19
CPT/HCPCS: 94640; 87636; 71046; 99285; J7512

== ENCOUNTER 2023-08-25 13:09 | Observation (INO) | payer OTHER ==
[2023-08-25] MEDS ORDERED: ALBUTEROL NEBULIZED 2.5 MG/3 ML INHALATION STA (13:37)
[2023-08-25] MEDS ORDERED: IPRATROPIUM 0.5 MG/2.5 ML NEBU INHALATION STA (13:37)
[2023-08-25] MEDS ORDERED: methylPREDNISolone SOD SUCCI 125 MG/2 ML VIAL IV STA (13:37)
--- NOTE | 2023-08-25 13:45 | ED ---
General Adult HPI - General Chief complaint: Shortness of Breath Stated complaint: SOB Time Seen by Provider: 08/25/23 13:31 Source: patient, RN notes reviewed, old records reviewed Mode of arrival: EMS Limitations: no limitations - History of Present Illness Initial comments: 63 -year-old male presenting with increased cough and dyspnea over the past 2 weeks. History of COPD. Patient states that he's had worsening symptoms over the past 2 weeks. He reports low-grade fever. No central chest pain. No cardiac history. Cough is productive of green sputum. - Related Data Home Medications Medication Instructions Recorded Confirmed Mirtazapine [Remeron] 30 mg PO HS 06/16/22 08/25/23 OXcarbazepine [Trileptal] 300 mg PO BID 06/16/22 08/25/23 Venlafaxine HCl ER [Effexor XR] 225 mg PO DAILY 06/16/22 08/25/23 busPIRone HCL 15 mg PO TID 06/16/22 08/25/23 Albuterol Inhaler [Ventolin Hfa 2 puff INHALATION RT-Q4H PRN 08/25/23 08/25/23 Inhaler] Losartan Potassium 50 mg PO DAILY 08/25/23 08/25/23 Allergies Allergy/AdvReac Type Severity Reaction Status Date / Time Penicillins Allergy Anaphylaxis Verified 08/25/23 13:22 Review of Systems ROS Statement: Those systems with pertinent positive or pertinent negative responses have been documented in the HPI. ROS Other: All systems not noted in ROS Statement are negative. Past Medical History Past Medical History: COPD, Hypertension, Osteoarthritis (OA) History of Any Multi-Drug Resistant Organisms: None Reported Past Surgical History: Hernia Repair, Orthopedic Surgery Additional Past Surgical History / Comment(s): LT SHOULDER SX Past Anesthesia/Blood Transfusion Reactions: No Reported Reaction Past Psychological History: Bipolar, Depression Past Alcohol Use History: None Reported Past Drug Use History: None Reported - Past Family History Mother History Unknown: Yes Additional Family Medical History / Comment(s): ADOPTED-FAMILY HX UNKNOWN General Exam Limitations: no limitations General appearance: alert, in distress Head exam: Present: atraumatic, normocephalic Eye exam: Present: normal appearance, PERRL Respiratory exam: Present: respiratory distress, rhonchi, decreased breath sounds Cardiovascular Exam: Present: regular rate, normal rhythm GI/Abdominal exam: Present: soft. Absent: distended, tenderness Extremities exam: Present: normal inspection, normal capillary refill Neurological exam: Present: alert, oriented X3 Psychiatric exam: Present: normal affect, normal mood Skin exam: Present: warm Course Vital Signs 08/25/23 08/25/23 08/25/23 13:19 13:58 14:22 Temperature 99.3 F Pulse Rate 101 H 75 68 Respiratory 18 20 16 Rate Blood Pressure 149/74 175/110 145/80 O2 Sat by Pulse 94 L 94 L 96 Oximetry 08/25/23 15:00 Temperature Pulse Rate 75 Respiratory 16 Rate Blood Pressure 132/79 O2 Sat by Pulse 96 Oximetry Medical Decision Making - Medical Decision Making Was pt. sent in by a medical professional or institution (, PA, CENTRIFUGAL CASTING MACHINE TENDER, urgent care, hospital, or senior living...) When possible be specific @ -No Did you speak to anyone other than the patient for history (EMS, parent, family, police, friend...)? What history was obtained from this source @ -No Did you review nursing and triage notes (agree or disagree)? Why? @ -I reviewed and agree with nursing and triage notes Were old charts reviewed (outside hosp., previous admission, EMS record, old EKG, old radiological studies, urgent care reports/EKG's, senior living records)? Report findings @ -No old charts were reviewed Differential Diagnosis (chest pain, altered mental status, abdominal pain women, abdominal pain men, vaginal bleeding, weakness, fever, dyspnea, syncope, headache, dizziness, GI bleed, back pain, seizure, CVA, palpatations, mental health, musculoskeletal)? @ -[Differential Dyspnea: Coronary syndrome, arrhythmia, tamponade, asthma, COPD, pulmonary embolism, pneumonia, pneumothorax, pulmonary effusion, anaphylaxis, diabetic ketoacidosis, flailed chest, pulmonary contusion, diaphragmatic rupture, anemia, neuromuscular, this is not meant to be an all-inclusive list. EKG interpreted by me (3pts min.). @ -[Sinus rhythm with PVC rate of 98, WA interval 138, QRS duration 105, QTC [address] segment elevation. X-rays interpreted by me (1pt min.). @ No focal pneumonia, no pneumothorax CT interpreted by me (1pt min.). @ -None done U/S interpreted by me (1pt. min.). @ -None done What testing was considered but not performed or refused? (CT, X-rays, U/S, labs)? Why? @ -None What meds were considered but not given or refused? Why? @ -None Did you discuss the management of the patient with other professionals (professionals i.e. , PA, CENTRIFUGAL CASTING MACHINE TENDER, lab, RT, psych nurse, social media editor, us marketing director, teacher, digital marketing officer, caser up)? Give summary @ -[facility] smoking cessation discussed for >3mins.? @ -No Was critical care preformed (if so, how long)? @ -No Were there social determinants of health that impacted care today? How? (Homelessness, low income, unemployed, alcoholism, drug addiction, transportation, low edu. Level, literacy, decrease access to med. care, skilled nursing, rehab)? @ -No Was there de-escalation of care discussed even if they declined (Discuss DNR or withdrawal of care, Hospice)? DNR status @ -No What co-morbidities impacted this encounter? (DM, HTN, Smoking, COPD, CAD, Cancer, CVA, ARF, Chemo, Hep., AIDS, mental health diagnosis, sleep apnea, morbid obesity)? @ COPD Was patient admitted / discharged? Hospital course, mention meds given and route, prescriptions, significant lab abnormalities, going to OR and other p ertinent info. @ -[Patient admitted for COPD exacerbation secondary to coronavirus. Undiagnosed new problem with uncertain prognosis? @ -No Drug Therapy requiring intensive monitoring for toxicity (Heparin, Nitro, Insulin, Cardizem)? @ -No Were any procedures done? @ -No Diagnosis/symptom? @ -[COPD exacerbation, coronavirus Acute, or Chronic, or Acute on Chronic? @ Acute on chronic Uncomplicated (without systemic symptoms) or Complicated (systemic symptoms)? @ -Complicated Side effects of treatment? @ -No Exacerbation, Progression, or Severe Exacerbation? @ -No Poses a threat to life or bodily function? How? (Chest pain, USA, NH, pneumonia, PE, COPD, DKA, ARF, appy, cholecystitis, CVA, Diverticulitis, Homicidal, Suicidal, threat to staff... and all critical care pts) @ -[Yes, COPD - Lab Data Result diagrams: 08/25/23 13:37 08/25/23 13:37 Lab Results 08/25/23 08/25/23 08/25/23 Range/Units 13:37 13:37 13:37 WBC 5.2 (3.8-10.6) k/uL RBC 4.13 L (4.30-5.90) m/uL Hgb 13.9 (13.0-17.5) gm/dL Hct 39.3 (39.0-53.0) % MCV 95.0 (80.0-100.0) fL MCH 33.7 (25.0-35.0) pg MCHC 35.5 (31.0-37.0) g/dL RDW 12.4 (11.5-15.5) % Plt Count 200 (150-450) k/uL MPV 7.6 Neutrophils % 76 % Lymphocytes % 11 % Monocytes % 9 % Eosinophils % 2 % Basophils % 1 % Neutrophils # 3.9 (1.3-7.7) k/uL Lymphocytes # 0.6 L (1.0-4.8) k/uL Monocytes # 0.5 (0-1.0) k/uL Eosinophils # 0.1 (0-0.7) k/uL Basophils # 0.1 (0-0.2) k/uL PT 10.8 (10.0-12.5) sec INR 1.0 (<1.2) APTT 25.2 (22.0-30.0) sec Sodium 126 L (137-145) mmol/L Potassium 4.6 (3.5-5.1) mmol/L Chloride 89 L (98-107) mmol/L Carbon Dioxide 22 (22-30) mmol/L Anion Gap 15 mmol/L BUN 6 L (9-20) mg/dL Creatinine 0.54 L (0.66-1.25) mg/dL Est GFR (CKD-EPI)AfAm >90 (>60 ml/min/1.73 sqM) Est GFR (CKD-EPI)NonAf >90 (>60 ml/min/1.73 sqM) Glucose 91 (74-99) mg/dL Plasma Lactic Acid Zay (0.7-2.0) mmol/L Calcium 9.0 (8.4-10.2) mg/dL Magnesium 1.7 (1.6-2.3) mg/dL Total Bilirubin 0.4 (0.2-1.3) mg/dL AST 60 H (17-59) U/L ALT 44 (4-49) U/L Alkaline Phosphatase 91 (38-126) U/L Troponin I (0.000-0.034) ng/mL NT-Pro-B Natriuret Pep 329 pg/mL Total Protein 7.5 (6.3-8.2) g/dL Albumin 4.6 (3.5-5.0) g/dL Influenza Type A (PCR) (Not Detectd) Influenza Type B (PCR) (Not Detectd) RSV (PCR) (Not Detectd) SARS-CoV-2 (PCR) (Not Detectd) 08/25/23 08/25/23 08/25/23 Range/Units 13:37 13:37 13:45 WBC (3.8-10.6) k/uL RBC (4.30-5.90) m/uL Hgb (13.0-17.5) gm/dL Hct (39.0-53.0) % MCV (80.0-100.0) fL MCH (25.0-35.0) pg MCHC (31.0-37.0) g/dL RDW (11.5-15.5) % Plt Count (150-450) k/uL MPV Neutrophils % % Lymphocytes % % Monocytes % % Eosinophils % % Basophils % % Neutrophils # (1.3-7.7) k/uL Lymphocytes # (1.0-4.8) k/uL Monocytes # (0-1.0) k/uL Eosinophils # (0-0.7) k/uL Basophils # (0-0.2) k/uL PT (10.0-12.5) sec INR (<1.2) APTT (22.0-30.0) sec Sodium (137-145) mmol/L Potassium (3.5-5.1) mmol/L Chloride (98-107) mmol/L Carbon Dioxide (22-30) mmol/L Anion Gap mmol/L BUN (9-20) mg/dL Creatinine (0.66-1.25) mg/dL Est GFR (CKD-EPI)AfAm (>60 ml/min/1.73 sqM) Est GFR (CKD-EPI)NonAf (>60 ml/min/1.73 sqM) Glucose (74-99) mg/dL Plasma Lactic Acid Zay 1.5 (0.7-2.0) mmol/L Calcium (8.4-10.2) mg/dL Magnesium (1.6-2.3) mg/dL Total Bilirubin (0.2-1.3) mg/dL AST (17-59) U/L ALT (4-49) U/L Alkaline Phosphatase (38-126) U/L Troponin I <0.012 (0.000-0.034) ng/mL NT-Pro-B Natriuret Pep pg/mL Total Protein (6.3-8.2) g/dL Albumin (3.5-5.0) g/dL Influenza Type A (PCR) Not Detected (Not Detectd) Influenza Type B (PCR) Not Detected (Not Detectd) RSV (PCR) Not Detected (Not Detectd) SARS-CoV-2 (PCR) Detected A (Not Detectd) Disposition Clinical Impression: COPD exacerbation, Hyponatremia, COVID-19 Disposition: ADMITTED IP TO THIS HOSP Condition: Stable Is patient prescribed a controlled substance at d/c from ED?: No Referrals: Jeronimo Mcmanus MD [Primary Care Provider] - 1-2 days Time of Disposition: 15:33
[2023-08-25 14:10] LABS: Basophils # (A) 0.1 k/uL (0-0.2); Basophils % (A) 1 %; Eosinophils # (A) 0.1 k/uL (0-0.7); Eosinophils % (A) 2 %; HCT 39.3 % (39.0-53.0); HGB 13.9 gm/dL (13.0-17.5); Lymphocytes # (A) 0.6 k/uL (1.0-4.8); Lymphocytes % (A) 11 %; MCH 33.7 pg (25.0-35.0); MCHC 35.5 g/dL (31.0-37.0); Mean Platelet Volume 7.6; Monocytes # (A) 0.5 k/uL (0-1.0); Monocytes % (A) 9 %; Neutrophils # (A) 3.9 k/uL (1.3-7.7); Neutrophils % (A) 76 %; Platelet Count 200 k/uL (150-450); RBC 4.13 m/uL (4.30-5.90); RDW 12.4 % (11.5-15.5); WBC 5.2 k/uL (3.8-10.6)
[2023-08-25 14:19] LABS: Partial Thromboplastin Time 25.2 sec (22.0-30.0); Prothrombin Time 10.8 sec (10.0-12.5)
[2023-08-25 14:24] LABS: ALT 44 U/L (4-49); AST 60 U/L (17-59); African American GFR (CKD) >90 (>60 ml/min/1.73 sqM); Albumin 4.6 g/dL (3.5-5.0); Alkaline Phosphatase 91 U/L (38-126); Anion Gap 15 mmol/L; Blood Urea Nitrogen 6 mg/dL (9-20); Carbon Dioxide 22 mmol/L (22-30); Chloride 89 mmol/L (98-107); Glucose 91 mg/dL (74-99); Magnesium 1.7 mg/dL (1.6-2.3); Non-African American GFR(CKD) >90 (>60 ml/min/1.73 sqM); Potassium 4.6 mmol/L (3.5-5.1); Sodium 126 mmol/L (137-145); Total Bilirubin 0.4 mg/dL (0.2-1.3); Total Protein 7.5 g/dL (6.3-8.2)
[2023-08-25 14:32] LABS: NT-Pro-B-Type Natriuretic Pept 329 pg/mL
[2023-08-25] MEDS ORDERED: ALBUTEROL HFA INHALER INHALATION STA (14:52)
[2023-08-25] MEDS ORDERED: TIOTROPIUM 2.5 MCG INHALER INHALATION STA (14:53)
--- NOTE | 2023-08-25 15:12 | XR ---
EXAMINATION TYPE: XR chest 2V DATE OF EXAM: 08/25/2023 COMPARISON: NONE HISTORY: Difficulty breathing. TECHNIQUE: Frontal and lateral views of the chest are obtained. FINDINGS: There is no focal air space opacity, pleural effusion, or pneumothorax seen. The cardiac silhouette size is within normal limits. The osseous structures are intact. IMPRESSION: No acute cardiopulmonary process.
[2023-08-25] MEDS ORDERED: NALOXONE 0.4 MG/ML 1 ML VIAL IVP PRN (15:30)
[2023-08-25] MEDS ORDERED: IPRATROPIUM-ALBUTEROL 3 ML NEB INHALATION PRN (15:30)
[2023-08-25] MEDS ORDERED: SODIUM CHLORIDE 0.9% 500 ML 500 ML IV ONE (15:31)
[2023-08-25] MEDS ORDERED: IPRATROPIUM-ALBUTEROL 3 ML NEB INHALATION SCH (16:00)
[2023-08-25] MEDS: SODIUM CHLORIDE 0.9% 1,000 ML IV SCH (16:02)
[2023-08-25] MEDS ORDERED: ALBUTEROL HFA INHALER INHALATION PRN (16:10)
[2023-08-25] MEDS: methylPREDNISolone SOD SUCCI 125 MG/2 ML VIAL IV SCH ×2 (18:20→23:47)
[2023-08-25] MEDS: ALBUTEROL HFA INHALER INHALATION SCH (18:36)
[2023-08-26] MEDS ORDERED: ALBUTEROL HFA INHALER INHALATION PRN (01:17)
[2023-08-26] MEDS: methylPREDNISolone SOD SUCCI 125 MG/2 ML VIAL IV SCH ×4 (05:48→22:55)
[2023-08-26] MEDS: SODIUM CHLORIDE 0.9% 1,000 ML IV SCH ×2 (05:48→18:27)
[2023-08-26] MEDS: TIOTROPIUM 2.5 MCG INHALER INHALATION SCH (08:27)
[2023-08-26] MEDS: ALBUTEROL HFA INHALER INHALATION SCH ×4 (08:27→20:52)
[2023-08-26] MEDS: OXcarbazepine 300 MG TAB PO SCH ×2 (09:36→20:11)
[2023-08-26] MEDS: busPIRone HCl 5 MG TAB PO SCH ×3 (09:36→22:54)
[2023-08-26] MEDS: VENLAFAXINE HCL ER 75 MG CAP PO SCH (09:36)
[2023-08-26] MEDS: LOSARTAN 50 MG TAB PO SCH (09:36)
--- NOTE | 2023-08-26 13:06 | P.HPIM ---
History of Present Illness H&P Date: 08/26/23 History of present illness; patient is a 63-year-old gentleman with past medical history significant for hypertension, COPD, depression who comes to the hospital for worsening shortness of breath and cough for the last 2 weeks. Patient stated that he was all right 2 weeks back when he started noticing he was getting short of breath on exertion. Patient was also complaining of productive cough. Patient was having low-grade fevers but no chills. Was going to lethargy and weakness. Denied any chest pain. Denies any orthopnea or PND. There was no complain of swelling of feet. Because his worsening shortness of breath, patient was in the ER Initial lab work done in the ER showed WBC 5.2, hemoglobin 13.9, platelet count 200, sodium 126, potassium 4.6, BUN 6, crit 0.54 magnesium 1.7, AST 60, AST 44, troponin 0.012 Influenza A not detected Influenza B not detected RSV not detected COVID-19 detected EKG done in the ER showed heart rate of 98, sinus rhythm with occasional PVCs, no ST segment elevation or depression seen, no T-wave inversions seen. Chest x-ray done in the ER showed no acute cardiopulmonary process Patient admitted to internal medicine service REVIEW OF SYSTEMS: CONSTITUTIONAL: As mentioned in HPI HEENT: No recent visual problems or hearing problems. Denied any sore throat. CARDIOVASCULAR: As mentioned in HPI PULMONARY: As mentioned in HPI GASTROINTESTINAL: No diarrhea, no nausea, no vomiting, no abdominal pain. NEUROLOGICAL: No headaches, no weakness, no numbness. HEMATOLOGICAL: Denies any bleeding or petechiae. GENITOURINARY: Denies any burning micturition, frequency, or urgency. MUSCULOSKELETAL/RHEUMATOLOGICAL: Denies any joint pain, swelling, or any muscle pain. ENDOCRINE: Denies any polyuria or polydipsia. The rest of the 14-point review of systems is negative. PHYSICAL EXAMINATION: GENERAL: The patient is alert and oriented x3, not in any acute distress. Well developed, well nourished. HEENT: Pupils are round and equally reacting to light. EOMI. No scleral icterus. No conjunctival pallor. Normocephalic, atraumatic. No pharyngeal erythema. No thyromegaly. CARDIOVASCULAR: S1 and S2 present. No murmurs, rubs, or gallops. PULMONARY: Coarse breath sounds bilaterally, no wheezing or crackles. ABDOMEN: Soft, nontender, nondistended, normoactive bowel sounds. No palpable organomegaly. MUSCULOSKELETAL: No joint swelling or deformity. EXTREMITIES: No cyanosis, clubbing, or pedal edema. NEUROLOGICAL: Gross neurological examination did not reveal any focal deficits. SKIN: No rashes. Assessment and plan Acute COPD exacerbation COVID-19 infection Hypertension Depression Monitor vital signs Monitor CBC Monitor CMP Continue oxygen supplementation Aggressive bronchopulmonary hygiene Encourage use of I-S Continue breathing treatment Continue IV Solu-Medrol Resume home meds Pulmonology consulted Labs and medication were reviewed.. Continue same treatment. Continue with symptomatic treatment. Resume home medication. Monitor labs and vitals. DVT and GI prophylaxis. Further recommendations as per clinical course of the patient Dictation was produced using [employer] dictation software. please excuse any grammatical, word or spelling errors. Past Medical History Past Medical History: COPD, Hypertension, Osteoarthritis (OA) History of Any Multi-Drug Resistant Organisms: None Reported Past Surgical History: Hernia Repair, Orthopedic Surgery Additional Past Surgical History / Comment(s): LT SHOULDER SX Past Anesthesia/Blood Transfusion Reactions: No Reported Reaction Past Psychological History: Bipolar, Depression Smoking Status: Current some day smoker Past Alcohol Use History: None Reported Additional Past Alcohol Use History / Comment(s): States he smokes only when he is nervous or gets the shakes. Past Drug Use History: None Reported - Past Family History Mother History Unknown: Yes Additional Family Medical History / Comment(s): ADOPTED-FAMILY HX UNKNOWN Medications and Allergies Home Medications Medication Instructions Recorded Confirmed Type Mirtazapine [Remeron] 30 mg PO HS 06/16/22 08/25/23 History OXcarbazepine [Trileptal] 300 mg PO BID 06/16/22 08/25/23 History Venlafaxine HCl ER [Effexor XR] 225 mg PO DAILY 06/16/22 08/25/23 History busPIRone HCL 15 mg PO TID 06/16/22 08/25/23 History Albuterol Inhaler [Ventolin Hfa 2 puff INHALATION RT-Q4H PRN 08/25/23 08/25/23 History Inhaler] Losartan Potassium 50 mg PO DAILY 08/25/23 08/25/23 History Allergies Allergy/AdvReac Type Severity Reaction Status Date / Time Penicillins Allergy Anaphylaxis Verified 08/25/23 13:22 Physical Exam Vitals: Vital Signs Temp Pulse Pulse Resp BP BP Pulse Ox 08/26/23 08:28 97 08/26/23 07:00 97.5 F L 62 21 137/76 97 08/26/23 01:03 97.8 F 68 16 130/64 93 L 08/25/23 19:38 97.8 F 85 16 132/60 94 L 08/25/23 18:12 95 16 166/84 96 08/25/23 17:48 65 16 145/78 95 08/25/23 16:00 75 20 145/78 95 08/25/23 15:00 75 16 132/79 96 08/25/23 14:22 68 16 145/80 96 08/25/23 13:58 75 20 175/110 94 L 08/25/23 13:19 99.3 F 101 H 18 149/74 94 L FiO2 08/26/23 08:28 21 08/26/23 07:00 08/26/23 01:03 08/25/23 19:38 08/25/23 18:12 08/25/23 17:48 08/25/23 16:00 08/25/23 15:00 08/25/23 14:22 08/25/23 13:58 08/25/23 13:19 Intake and Output 08/25/23 08/26/23 08/26/23 22:59 06:59 14:59 Intake Total 500 Balance 500 Intake: Oral 500 Other: # Voids 1 1 Weight 70.307 kg Results CBC & Chem 7: 08/25/23 13:37 08/25/23 13:37 Labs: Abnormal Lab Results - Last 24 Hours (Table) 08/25/23 08/25/23 08/25/23 Range/Units 13:37 13:37 13:45 RBC 4.13 L (4.30-5.90) m/uL Lymphocytes # 0.6 L (1.0-4.8) k/uL Sodium 126 L (137-145) mmol/L Chloride 89 L (98-107) mmol/L BUN 6 L (9-20) mg/dL Creatinine 0.54 L (0.66-1.25) mg/dL AST 60 H (17-59) U/L SARS-CoV-2 (PCR) Detected A (Not Detectd) Thrombosis Risk Factor Assmnt - Choose All That Apply Any of the Below Risk Factors Present?: Yes Each Factor Represents 1 point: Abnormal pulmonary function (COPD), Age 41-60 years Other Risk Factors: No Other congenital or acquired thrombophilia - If yes, enter type in comment: No Thrombosis Risk Factor Assessment Total Risk Factor Score: 2 Thrombosis Risk Factor Assessment Level: Low Risk
--- NOTE | 2023-08-26 13:08 | P.CNPUL ---
History of Present Illness Consult date: 08/26/23 Requesting physician: Ahsan Rojas Reason for consult: dyspnea, COPD, hypoxemia Chief complaint: Shortness of breath, cough, congestion History of present illness: This is a 63-year-old male patient with a known history of chronic and ongoing tobacco dependence of 46 years, chronic obstructive pulmonary disease, bipolar depression, hypertension. He presented here to the emergency room yesterday with a two-week history of increasing shortness of breath, cough and congestion. No fever or chills. He has had some chest tightness and wheezing. Clear productive sputum. He was given Trilogy in the outpatient setting but he does not like the powder form. He is mostly on nebulized albuterol and albuterol HFA. No home oxygen. Chest x-ray reveals no acute pulmonary process. White count 5.2. Hemoglobin 13.9. Sodium 126. Potassium 4.6. Bicarb 22. BUN of 6. Creatinine 0.54. AST 60. ALT 44. Troponin negative times one. ProBNP 329. Influenza screen negative. RSV screen negative. He did test positive for COVID-19. He is seen today in consultation on the regular medical floor. He is currently sitting up in a chair at the bedside. Awake and alert in no acute distress. Maintaining O2 saturations in the 90s on room air. He does have a loose cough. Still bronchospastic and wheezing. Review of Systems REVIEW OF SYSTEMS: CONSTITUTIONAL: Denies any recent significant weight loss or weight gain. EYES: Denies change in vision. EARS, NOSE, MOUTH, THROAT: Denies headaches, denies sore throat. CARDIOVASCULAR: Denies chest pain, palpitations or syncopal episodes. RESPIRATORY: Positive for shortness of breath, cough, congestion no hemoptysis. GASTROINTESTINAL: Denies change in appetite, denies abdominal pain GENITOURINARY: Denies hematuria, denies infections. MUSKULOSKELETAL: Denies pain, denies swelling. INTEGUMENTARY: Denies rash, denies eczema. NEUROLOGICAL: Denies recent memory loss, no recent seizure activity. PSYCHIATRIC: Denies anxiety, denies depression. HEMATOLOGIC/LYMPHATIC: Denies anemia, denies enlarged lymph nodes. Past Medical History Past Medical History: COPD, Hypertension, Osteoarthritis (OA) History of Any Multi-Drug Resistant Organisms: None Reported Past Surgical History: Hernia Repair, Orthopedic Surgery Additional Past Surgical History / Comment(s): LT SHOULDER SX Past Anesthesia/Blood Transfusion Reactions: No Reported Reaction Past Psychological History: Bipolar, Depression Smoking Status: Current some day smoker Past Alcohol Use History: None Reported Additional Past Alcohol Use History / Comment(s): States he smokes only when he is nervous or gets the shakes. Past Drug Use History: None Reported - Past Family History Mother History Unknown: Yes Additional Family Medical History / Comment(s): ADOPTED-FAMILY HX UNKNOWN Medications and Allergies Home Medications Medication Instructions Recorded Confirmed Type Mirtazapine [Remeron] 30 mg PO HS 06/16/22 08/25/23 History OXcarbazepine [Trileptal] 300 mg PO BID 06/16/22 08/25/23 History Venlafaxine HCl ER [Effexor XR] 225 mg PO DAILY 06/16/22 08/25/23 History busPIRone HCL 15 mg PO TID 06/16/22 08/25/23 History Albuterol Inhaler [Ventolin Hfa 2 puff INHALATION RT-Q4H PRN 08/25/23 08/25/23 History Inhaler] Losartan Potassium 50 mg PO DAILY 08/25/23 08/25/23 History Allergies Allergy/AdvReac Type Severity Reaction Status Date / Time Penicillins Allergy Anaphylaxis Verified 08/25/23 13:22 Physical Exam Vitals: Vital Signs Temp Pulse Pulse Resp BP BP Pulse Ox 08/26/23 08:28 97 08/26/23 07:00 97.5 F L 62 21 137/76 97 08/26/23 01:03 97.8 F 68 16 130/64 93 L 08/25/23 19:38 97.8 F 85 16 132/60 94 L 08/25/23 18:12 95 16 166/84 96 08/25/23 17:48 65 16 145/78 95 08/25/23 16:00 75 20 145/78 95 08/25/23 15:00 75 16 132/79 96 08/25/23 14:22 68 16 145/80 96 08/25/23 13:58 75 20 175/110 94 L 08/25/23 13:19 99.3 F 101 H 18 149/74 94 L FiO2 08/26/23 08:28 21 08/26/23 07:00 08/26/23 01:03 08/25/23 19:38 12/21/23 18:12 08/25/23 17:48 08/25/23 16:00 08/25/23 15:00 08/25/23 14:22 08/25/23 13:58 08/25/23 13:19 Intake and Output 08/25/23 08/26/23 08/26/23 22:59 06:59 14:59 Intake Total 500 Balance 500 Intake: Oral 500 Other: # Voids 1 1 Weight 70.307 kg GENERAL EXAM: Alert, unkept, disheveled 63-year-old male, on room air, fairly comfortable in no apparent distress. HEAD: Normocephalic. EYES: Normal reaction of pupils, equal size. NOSE: Clear with pink turbinates. THROAT: No erythema or exudates. NECK: No masses, no JVD. CHEST: No chest wall deformity. LUNGS: Equal air entry with bilateral end expiratory wheeze, scattered rhonchi, diminished. CVS: S1 and S2 normal with no audible murmur, regular rhythm. ABDOMEN: No hepatosplenomegaly, normal bowel sounds, no guarding or rigidity. SPINE: No scoliosis or deformity SKIN: No rashes CENTRAL NERVOUS SYSTEM: No focal deficits, tone is normal in all 4 extremities. EXTREMITIES: There is no peripheral edema. No clubbing, no cyanosis. Peripheral pulses are intact. Results - Laboratory Findings CBC and BMP: 08/25/23 13:37 08/25/23 13:37 PT/INR, D-dimer PT 10.8 sec (10.0-12.5) 08/25/23 13:37 INR 1.0 (<1.2) 08/25/23 13:37 Abnormal lab findings: Abnormal Labs 08/25/23 08/25/23 08/25/23 13:37 13:37 13:45 RBC 4.13 L Lymphocytes # 0.6 L Sodium 126 L Chloride 89 L BUN 6 L Creatinine 0.54 L AST 60 H SARS-CoV-2 (PCR) Detected A - Diagnostic Findings Chest x-ray: image reviewed Assessment and Plan Assessment: Acute exacerbation of chronic obstructive pulmonary disease Acute COVID-19 infection without evidence of CoVID pneumonia Chronic and ongoing tobacco dependence of 46 years History of bipolar depression Hypertension Plan: The patient was seen and evaluated Chest x-ray, labs and medications reviewed Add Symbicort, Spiriva, albuterol Add Solu-Medrol Educated regarding the importance of complete smoking cessation NicoDerm patch will be offered He would benefit from an outpatient workup including full pulmonary function testing We will continue to follow and make further recommendations based on his clinical status I have personally seen and examined the patient, performed the documentation and the assessment and plan as written. Number of minutes spent on the visit: 20.
[2023-08-26 16:32] LABS: HCT 40.1 % (39.0-53.0); HGB 13.2 gm/dL (13.0-17.5); MCH 31.9 pg (25.0-35.0); MCHC 32.8 g/dL (31.0-37.0); MCV 97.2 fL (80.0-100.0); Mean Platelet Volume 7.9; Platelet Count 218 k/uL (150-450); RBC 4.13 m/uL (4.30-5.90); RDW 12.5 % (11.5-15.5); WBC 5.1 k/uL (3.8-10.6)
[2023-08-26 19:59] VITALS: RESP 16
[2023-08-26] MEDS: SYMBICORT 160-4.5 MCG INHALER INHALATION SCH (20:52)
[2023-08-26] MEDS ORDERED: MIRTAZAPINE 15 MG TAB PO SCH (21:00)
[2023-08-27] MEDS: SODIUM CHLORIDE 0.9% 1,000 ML IV SCH (04:16)
[2023-08-27] MEDS: methylPREDNISolone SOD SUCCI 125 MG/2 ML VIAL IV SCH ×2 (06:21→12:04)
[2023-08-27 07:59] VITALS: BP 153/86; PULSE 67; TEMP 97.6
[2023-08-27 08:18] LABS: HCT 39.2 % (39.0-53.0); HGB 12.9 gm/dL (13.0-17.5); MCH 32.4 pg (25.0-35.0); MCHC 32.9 g/dL (31.0-37.0); MCV 98.6 fL (80.0-100.0); Mean Platelet Volume 7.9; Platelet Count 211 k/uL (150-450); RBC 3.98 m/uL (4.30-5.90); RDW 12.5 % (11.5-15.5); WBC 6.5 k/uL (3.8-10.6)
--- NOTE | 2023-08-27 08:22 | P.PN ---
Subjective Progress Note Date: 08/27/23 This is a 63-year-old male patient with a known history of chronic and ongoing tobacco dependence of 46 years, chronic obstructive pulmonary disease, bipolar depression, hypertension. He presented here to the emergency room yesterday with a two-week history of increasing shortness of breath, cough and congestion. No fever or chills. He has had some chest tightness and wheezing. Clear productive sputum. He was given Trilogy in the outpatient setting but he does not like the powder form. He is mostly on nebulized albuterol and albuterol HFA. No home oxygen. Chest x-ray reveals no acute pulmonary process. White count 5.2. Hemoglobin 13.9. Sodium 126. Potassium 4.6. Bicarb 22. BUN of 6. Creatinine 0.54. AST 60. ALT 44. Troponin negative times one. ProBNP 329. Influenza screen negative. RSV screen negative. He did test positive for COVID-19. He is seen today in consultation on the regular medical floor. He is currently sitting up in a chair at the bedside. Awake and alert in no acute distress. Maintaining O2 saturations in the 90s on room air. He does have a loose cough. Still bronchospastic and wheezing. The patient is seen today 08/27/2023 in follow-up on the regular medical floor. He is currently sitting up in a chair at the bedside. Awake and alert in no a cute distress. Doing quite a bit better today compared to yesterday. He is maintaining good O2 saturations in the 90s on room air. He's been afebrile. Hemodynamically stable. White count 5.1. Hemoglobin 13.2. Platelets 218. He is positive for COVID-19 infection. His continue on Symbicort, albuterol, Solu- Medrol and Spiriva. He is still somewhat bronchospastic and wheezing. Objective - Vital Signs Vital signs: Vital Signs Temp 97.6 F 08/27/23 07:20 Pulse 67 08/27/23 07:20 Resp 16 08/27/23 07:20 BP 153/86 08/27/23 07:20 Pulse Ox 98 08/27/23 07:20 FiO2 21 08/26/23 08:28 Intake & Output 08/26/23 08/27/23 08/27/23 18:59 06:59 18:59 Intake Total 980 Balance 980 Intake: Oral 980 Other: # Voids 1 # Bowel Movements 1 - Exam GENERAL EXAM: Alert, pleasant 63-year-old male patient, up in a chair, on room air, comfortable in no apparent distress. HEAD: Normocephalic. EYES: Normal reaction of pupils, equal size. NOSE: Clear with pink turbinates. THROAT: No erythema or exudates. NECK: No masses, no JVD. CHEST: No chest wall deformity. LUNGS: Equal air entry with bilateral end expiratory wheeze, diminished. CVS: S1 and S2 normal with no audible murmur, regular rhythm. ABDOMEN: No hepatosplenomegaly, normal bowel sounds, no guarding or rigidity. SPINE: No scoliosis or deformity SKIN: No rashes CENTRAL NERVOUS SYSTEM: No focal deficits, tone is normal in all 4 extremities. EXTREMITIES: There is no peripheral edema. No clubbing, no cyanosis. Peripheral pulses are intact. - Labs CBC & Chem 7: 08/26/23 15:47 08/25/23 13:37 Labs: Abnormal Lab Results - Last 24 Hours (Table) 08/26/23 Range/Units 15:47 RBC 4.13 L (4.30-5.90) m/uL Assessment and Plan Assessment: Acute exacerbation of chronic obstructive pulmonary disease Acute COVID-19 infection without evidence of CoVID pneumonia Chronic and ongoing tobacco dependence of 46 years History of bipolar depression Hypertension Plan: The patient was seen and evaluated Medications reviewed Continue Symbicort, Spiriva, albuterol Continue Solu-Medrol Lovenox for DVT prophylaxis Again educated regarding complete smoking cessation Not quite back to his baseline Probable discharge in the a.m. This patient was seen independently by the pulmonary nurse practitioner I have personally seen and examined the patient, performed the documentation and the assessment and plan as written. Number of minutes spent on the visit: 22.
[2023-08-27 08:27] LABS: ALT 49 U/L (4-49); AST 57 U/L (17-59); African American GFR (CKD) >90 (>60 ml/min/1.73 sqM); Albumin 4.2 g/dL (3.5-5.0); Albumin/Globulin Ratio 1.5; Alkaline Phosphatase 85 U/L (38-126); Anion Gap 10 mmol/L; Blood Urea Nitrogen 11 mg/dL (9-20); Calcium 8.7 mg/dL (8.4-10.2); Carbon Dioxide 26 mmol/L (22-30); Chloride 96 mmol/L (98-107); Globulin 2.8 g/dL; Glucose 122 mg/dL (74-99); Non-African American GFR(CKD) >90 (>60 ml/min/1.73 sqM); Potassium 4.1 mmol/L (3.5-5.1); Sodium 132 mmol/L (137-145); Total Bilirubin 0.3 mg/dL (0.2-1.3)
[2023-08-27] MEDS ORDERED: ENOXAPARIN 40 MG/0.4 ML SYRINGE SQ SCH (09:00)
[2023-08-27] MEDS ORDERED: NICOTINE 21MG/24HR PATCH TRANSDERM SCH (09:00)
[2023-08-27] MEDS: LOSARTAN 50 MG TAB PO SCH (09:11)
[2023-08-27] MEDS: VENLAFAXINE HCL ER 75 MG CAP PO SCH (09:11)
[2023-08-27] MEDS: busPIRone HCl 5 MG TAB PO SCH (09:11)
[2023-08-27] MEDS: OXcarbazepine 300 MG TAB PO SCH (09:11)
[2023-08-27] MEDS: TIOTROPIUM 2.5 MCG INHALER INHALATION SCH (09:33)
[2023-08-27] MEDS: SYMBICORT 160-4.5 MCG INHALER INHALATION SCH (09:33)
[2023-08-27] MEDS: ALBUTEROL HFA INHALER INHALATION SCH (09:33)
--- NOTE | 2023-08-27 14:34 | P.DS ---
Providers Date of admission: 08/25/23 15:31 Expected date of discharge: 08/27/23 Attending physician: Ahsan Rojas Consults: 08/25/23 15:31 Consult Physician Routine Consulting Provider: Bravo Levy Consult Reason/Comments: COPD/COVID Do you want consulting provider notified?: Yes Primary care physician: Jeronimo Mcmanus Hospital Course: Discharge diagnoses; Acute COPD exacerbation COVID-19 infection Hypertension Depression Hospital course; patient is a 63-year-old gentleman with past medical history significant for hypertension, COPD, depression who comes to the hospital for worsening shortness of breath and cough for the last 2 weeks. Patient stated that he was all right 2 weeks back when he started noticing he was getting short of breath on exertion. Patient was also complaining of productive cough. Patient was having low-grade fevers but no chills. Was going to lethargy and weakness. Denied any chest pain. Denies any orthopnea or PND. There was no complain of swelling of feet. Because his worsening shortness of breath, patient was in the ER Initial lab work done in the ER showed WBC 5.2, hemoglobin 13.9, platelet count 200, sodium 126, potassium 4.6, BUN 6, crit 0.54 magnesium 1.7, AST 60, AST 44, troponin 0.012 Influenza A not detected Influenza B not detected RSV not detected COVID-19 detected EKG done in the ER showed heart rate of 98, sinus rhythm with occasional PVCs, no ST segment elevation or depression seen, no T-wave inversions seen. Chest x-ray done in the ER showed no acute cardiopulmonary process Patient admitted to internal medicine service 08/27. Patient seen and examined. Patient states he feels much better. Patient is very keen to go home, pulmonology wanted patient to stay 1 more day but patient at this time was to go home. Currently not requiring any oxygen. Does not look in any distress. Patient is not wheezing. Being discharged in stable condition on tapered dose of prednisone PHYSICAL EXAMINATION: GENERAL: The patient is alert and oriented x3, not in any acute distress. Well developed, well nourished. HEENT: Pupils are round and equally reacting to light. EOMI. No scleral icterus. No conjunctival pallor. Normocephalic, atraumatic. No pharyngeal erythema. No thyromegaly. CARDIOVASCULAR: S1 and S2 present. No murmurs, rubs, or gallops. PULMONARY: Chest is clear to auscultation, no wheezing or crackles. ABDOMEN: Soft, nontender, nondistended, normoactive bowel sounds. No palpable organomegaly. MUSCULOSKELETAL: No joint swelling or deformity. EXTREMITIES: No cyanosis, clubbing, or pedal edema. NEUROLOGICAL: Gross neurological examination did not reveal any focal deficits. SKIN: No rashes. Dictation was produced using [employer] dictation software. please excuse any grammatical, word or spelling errors. Patient Condition at Discharge: Stable Plan - Discharge Summary New Discharge Prescriptions: New Budesonide-Formot 160-4.5 Mcg [Symbicort 160-4.5 Mcg Inhaler] 2 puff INHALATION RT-BID 30 Days #1 each predniSONE 10 mg PO DAILY 8 Days #20 tab Continue Venlafaxine HCl ER [Effexor XR] 225 mg PO DAILY OXcarbazepine [Trileptal] 300 mg PO BID Mirtazapine [Remeron] 30 mg PO HS busPIRone HCL 15 mg PO TID Albuterol Inhaler [Ventolin Hfa Inhaler] 2 puff INHALATION RT-Q4H PRN PRN Reason: Shortness Of Breath Losartan Potassium 50 mg PO DAILY Discharge Medication List Mirtazapine [Remeron] 30 mg PO HS 06/16/22 [History] OXcarbazepine [Trileptal] 300 mg PO BID 06/16/22 [History] Venlafaxine HCl ER [Effexor XR] 225 mg PO DAILY 06/16/22 [History] busPIRone HCL 15 mg PO TID 06/16/22 [History] Albuterol Inhaler [Ventolin Hfa Inhaler] 2 puff INHALATION RT-Q4H PRN 08/25/23 [History] Losartan Potassium 50 mg PO DAILY 08/25/23 [History] Budesonide-Formot 160-4.5 Mcg [Symbicort 160-4.5 Mcg Inhaler] 2 puff INHALATION RT-BID 30 Days #1 each 08/27/23 [Rx] predniSONE 10 mg PO DAILY 8 Days #20 tab 08/27/23 [Rx] Follow up Appointment(s)/Referral(s): Jeronimo Mcmanus MD [Primary Care Provider] - 1-2 days Catina Turner MD [STAFF PHYSICIAN] - 1 Week Discharge Disposition: HOME SELF-CARE
== END 2023-08-27 15:05 | disposition home or self-care (01) ==
LOC: EC 13:09 → 6NMEDSUR 15:31
PROVIDERS: ADMIT Hospitalist; ATTEND Hospitalist
DX: U07.1 COVID-19 (principal); J44.1 Chronic obstructive pulmonary disease with (acute) exacerbation; E87.1 Hypo-osmolality and hyponatremia; I10 Essential (primary) hypertension; M19.90 Unspecified osteoarthritis, unspecified site; F31.9 Bipolar disorder, unspecified; F17.200 Nicotine dependence, unspecified, uncomplicated; Z79.899 Other long term (current) drug therapy; Z88.0 Allergy status to penicillin; Z98.890 Other specified postprocedural states; Z71.6 Tobacco abuse counseling; Z11.59 Encounter for screening for other viral diseases
CPT/HCPCS: 96376 ×3; 96361 ×3; 96372; 96374; 99285; 36415; 94640 ×6; 94760; 93005; 83880; 80053 ×2; 83605; 83735; 84484; 85025; 85027 ×2; 85610; 85730; 87636; 71046; G0378 ×3; J2930 ×3; J1650

== ENCOUNTER 2023-08-31 16:59 | Emergency (ER) | payer OTHER ==
[~2023-08-31 16:59] MED LIST: OXcarbazepine 300 MG TAB PO ONE
--- NOTE | 2023-08-31 17:23 | ED ---
SOB HPI - General Source: patient, RN notes reviewed <Hernan Gil - Last Filed: 08/31/23 17:19> - General Source: patient, RN notes reviewed Mode of arrival: ambulatory Limitations: no limitations - History of Present Illness MD Complaint: shortness of breath <India Browne - Last Filed: 09/01/23 05:00> - General Chief Complaint: Shortness of Breath Stated Complaint: Covid Symptoms Time Seen by Provider: 08/31/23 17:19 - History of Present Illness Initial Comments: Patient is a 63 year old male presenting to the ER with a chief complaint of shortness of breath. Patient states he was recently diagnosed with COVID and has not been able to sleep since. Reports chills and fevers and mild wheezing. Patient does not normally wear oxygen at home. (Hernan Gil) This is a 63-year-old male who presents to the emergency department for shortness of breath. Patient was recently diagnosed with Covid and states that he has had difficulty breathing. States that he is scared to sleep and as a result has not been sleeping. He is afraid that he will stop breathing when he sleeps. He does also state that he has been out of his psychiatric medication for 3 days, which he believes is making him even more stressed out about this. Denies any associated chest pain. He is requesting to stay overnight so he can sleep comfortably and have his breathing monitored. (India Browne) - Related Data Home Medications Medication Instructions Recorded Confirmed Venlafaxine HCl ER [Effexor XR] 225 mg PO DAILY 06/16/22 08/25/23 Albuterol Inhaler [Ventolin Hfa 2 puff INHALATION RT-Q4H PRN 08/25/23 08/25/23 Inhaler] Losartan Potassium 50 mg PO DAILY 08/25/23 08/25/23 Previous Rx's Medication Instructions Recorded Budesonide-Formot 160-4.5 Mcg 2 puff INHALATION RT-BID 30 Days 08/27/23 [Symbicort 160-4.5 Mcg Inhaler] #1 each predniSONE 10 mg PO DAILY 8 Days #20 tab 08/27/23 Mirtazapine [Remeron] 30 mg PO HS #10 tab 09/01/23 OXcarbazepine [Trileptal] 300 mg PO BID #20 tab 09/01/23 Venlafaxine HCl [Effexor XR] 225 mg PO DAILY #10 tab 09/01/23 busPIRone HCL 15 mg PO TID #30 tab 09/01/23 Allergies Allergy/AdvReac Type Severity Reaction Status Date / Time Influenza Virus Vaccines Allergy Rash/Hives Verified 08/31/23 17:36 Penicillins Allergy Anaphylaxis Verified 08/31/23 17:36 Review of Systems ROS Other: All systems not noted in ROS Statement are negative. <Hernan Gil - Last Filed: 08/31/23 17:19> ROS Other: All systems not noted in ROS Statement are negative. <India Browne - Last Filed: 09/01/23 05:00> ROS Statement: Those systems with pertinent positive or pertinent negative responses have been documented in the HPI. Past Medical History Past Medical History: COPD, Hypertension, Osteoarthritis (OA) History of Any Multi-Drug Resistant Organisms: None Reported Past Surgical History: Hernia Repair, Orthopedic Surgery Additional Past Surgical History / Comment(s): LT SHOULDER SX Past Anesthesia/Blood Transfusion Reactions: No Reported Reaction Past Psychological History: Bipolar, Depression Smoking Status: Current some day smoker Past Alcohol Use History: None Reported Additional Past Alcohol Use History / Comment(s): States he smokes only when he is nervous or gets the shakes. Past Drug Use History: None Reported - Past Family History Mother History Unknown: Yes Additional Family Medical History / Comment(s): ADOPTED-FAMILY HX UNKNOWN <Hernan Gil - Last Filed: 08/31/23 17:19> General Exam General appearance: alert, in no apparent distress <Hernan Gil - Last Filed: 08/31/23 17:19> Limitations: no limitations General appearance: alert, in no apparent distress Head exam: Present: atraumatic, normocephalic, normal inspection Respiratory exam: Present: normal lung sounds bilaterally. Absent: respiratory distress, wheezes, rales, rhonchi, stridor Cardiovascular Exam: Present: regular rate, normal rhythm, normal heart sounds. Absent: systolic murmur, diastolic murmur, rubs, gallop, clicks Neurological exam: Present: alert, oriented X3, CN II-XII intact Psychiatric exam: Present: normal affect, normal mood Skin exam: Present: warm, dry, intact, normal color. Absent: rash <India Browne - Last Filed: 09/01/23 05:00> - General Exam Comments Initial Comments: Visual Physical Exam Vital signs reviewed General: Well-appearing, nontoxic, no acute distress. Head: Normocephalic, atraumatic Eyes: PERRLA, EOMI ENT: Airway patent Chest: Nonlabored breathing Skin: No visual rash, normal skin tone, mildly diaphoretic Neuro: Alert and oriented 3 Musculoskeletal: No gross abnormalities (Hernan Gil) Course Vital Signs 08/31/23 09/01/23 17:31 04:27 Temperature 97.9 F Pulse Rate 83 68 Respiratory 20 18 Rate Blood Pressure 132/69 179/106 O2 Sat by Pulse 97 96 Oximetry Medical Decision Making <Hernan Gil - Last Filed: 08/31/23 17:19> - Radiology Data Radiology results: report reviewed, image reviewed <India Browne - Last Filed: 09/01/23 05:00> - Medical Decision Making I performed the quick note portion of the exam. Electronically signed by Hernan Gil PA-C (Hernan Gil) This is a 63-year-old male who presents to the emergency department for shortness of breath. Was pt. sent in by a medical professional or institution? @ -No Did you speak to anyone other than the patient for history? @ -No Did you review nursing and triage notes? @ -Yes, and I agree, it is accurate with regards to the patient's symptoms. Were old charts reviewed? @ -No Differential Diagnosis? @ -Differential Dyspnea: Coronary syndrome, arrhythmia, tamponade, asthma, COPD, pulmonary embolism, pneumonia, pneumothorax, pulmonary effusion, anaphylaxis, diabetic ketoacidosis, flailed chest, pulmonary contusion, diaphragmatic rupture, anemia, neuromuscular, this is not meant to be an all-inclusive list. EKG interpreted by me (3pts min.)? @ -Not obtained X-rays interpreted by me (1pt min.)? @ -Chest x-ray obtained, my interpretation identifies no localized consolidations or infiltrates. CT interpreted by me (1pt min.)? @ -Not obtained U/S interpreted by me (1pt. min.)? @ -Not obtained What testing was considered but not performed? (CT, X-rays, U/S, labs)? Why? @ -None What meds were considered but not given? Why? @ -None Did you discuss the management of the patient with other professionals? @ -No Did you reconcile home meds? @ -No Was smoking cessation discussed for >3mins.? @ -No Was critical care preformed (if so, how long)? @ -No Were there social determinants of health that impacted care today? How? (Homelessness, low income, unemployed, alcoholism, drug addiction, transportation, low edu. Level, literacy, decrease access to med. care, f[facility], rehab)? @ -No Was there de-escalation of care discussed even if they declined? (Discuss DNR or withdrawal of care, Hospice)? @ -No What co-morbidities impacted this encounter? (DM, HTN, Smoking, COPD, CAD, Cancer, CVA, Hep., AIDS, mental health diagnosis, sleep apnea, morbid obesity)? @ -COPD, mental health diagnosis Was patient admitted / discharged? @ -Discharged. Chest x-ray obtained revealing no acute process. Because the patient is Covid-positive, he was unable to receive a DuoNeb breathing treatment. He had already been doing albuterol inhaler treatments at home. He did not exhibit any respiratory distress in the emergency department. His symptoms appeared to be more so related to his mental health problems. He had been out of his psychiatric medications for 3 days and was scared to go to sleep. He was worried that he would stop breathing and there would be nobody there to help him. He was given his doses of Effexor, BuSpar, Remeron, and Trileptal in the emergency department. Afterwards he slept for several hours comfortably without any respiratory difficulties and he felt stable for discharge home. I provided him with a short refill on these medications to help him get through until he can have these refilled by his prescribing provider at [facility]. He is also advised to follow up with his primary care provider. Undiagnosed new problem with uncertain prognosis? @ -None Drug Therapy requiring intensive monitoring for toxicity (Heparin, Nitro, Insulin, Cardizem)? @ -None Were any procedures done? @ -None Diagnosis/symptom? @ -COVID-19, dyspnea Acute, or Chronic, or Acute on Chronic? @ -Acute Uncomplicated (without systemic symptoms) or Complicated (systemic symptoms)? @ -Uncomplicated Side effects of treatment? @ -None Exacerbation, Progression, or Severe Exacerbation] @ -Not applicable Poses a threat to life or bodily function? @ -No Return precautions reviewed in depth, the patient is instructed to return to the emergency department with any new, worsening, or concerning symptoms. Patient verbalized understanding. This case was discussed in detail with the attending ED physician, Dr. Moran. Presentation, findings, and treatment plan discussed in detail as well. (India Browne) Disposition <Hernan Gil - Last Filed: 08/31/23 17:19> Is patient prescribed a controlled substance at d/c from ED?: No <India Browne - Last Filed: 09/01/23 05:00> Clinical Impression: COVID-19 Disposition: HOME SELF-CARE Condition: Stable Instructions (If sedation given, give patient instructions): COVID-19 (Coronavirus Disease 2019) (ED), How to Recover from COVID-19 at Home (ED) Additional Instructions: Return to the emergency department with any new, worsening, or concerning symptoms. superintendent power the prescriptions for your medications that you have run out of and begin taking them again. Continue to use your inhalers. Follow up with your primary care provider in 1-2 days. Prescriptions: busPIRone HCL 15 mg PO TID #30 tab Venlafaxine HCl [Effexor XR] 225 mg PO DAILY #10 tab Mirtazapine [Remeron] 30 mg PO HS #10 tab OXcarbazepine [Trileptal] 300 mg PO BID #20 tab Referrals: Jeronimo Mcmanus MD [Primary Care Provider] - 1-2 days
[2023-08-31 17:50] VITALS: TEMP 97.9
--- NOTE | 2023-08-31 17:51 | XR ---
EXAMINATION TYPE: XR chest 2V DATE OF EXAM: 08/31/2023 5:43 PM CLINICAL INDICATION:Male, 63 years old with history of cough; [facility] COMPARISON: None TECHNIQUE: XR chest 2V. Frontal PA and lateral views of the chest. FINDINGS: Lines/Tubes: None. Heart/mediastinum: Cardiomediastinal silhouette is well defined. Heart size is normal. Atherosclero tic calcifications are seen in the aorta. Pulmonary vascularity: Not increased, Lungs/Pleura: There is no evidence of pleural effusion, focal consolidation, or pneumothorax. Musculoskeletal: No acute osseous abnormality demonstrated in the limits of the exam. Mild degenerat pedro changes of the spine and shoulders. Old healed left rib fractures suggested Other findings: None. IMPRESSION: No acute cardiopulmonary abnormality.
[2023-08-31] MEDS ORDERED: busPIRone HCl 5 MG TAB PO STA (23:59)
[2023-08-31] MEDS ORDERED: busPIRone HCl 10 MG TAB PO STA (23:59)
[2023-08-31] MEDS ORDERED: MIRTAZAPINE 15 MG TAB PO STA (23:59)
[2023-08-31] MEDS ORDERED: VENLAFAXINE HCL ER 75 MG CAP PO STA (23:59)
[2023-09-01] MEDS ORDERED: OXcarbazepine 300 MG TAB PO ONE (00:14)
[2023-09-01 04:32] VITALS: BP 179/106; PULSE 68; RESP 18
== END 2023-09-01 04:28 | disposition home or self-care (01) ==
LOC: EC 16:59
DX: U07.1 COVID-19 (principal); J44.9 Chronic obstructive pulmonary disease, unspecified; I10 Essential (primary) hypertension; F17.200 Nicotine dependence, unspecified, uncomplicated; Z86.59 Personal history of other mental and behavioral disorders; Z88.0 Allergy status to penicillin; Z88.7 Allergy status to serum and vaccine
CPT/HCPCS: 71046; 99285

== ENCOUNTER 2024-02-09 22:47 | Emergency (ER) | payer OTHER ==
--- NOTE | 2024-02-09 22:51 | ED ---
General Adult HPI - General Stated complaint: Shortness of Breath Time Seen by Provider: 02/09/24 22:50 - History of Present Illness Initial comments: Zachary is a 63-year-old gentleman with history of chronic back pain which limits his ability to ambulate. reports that today she had to call EMS for a lift assist and when they got him reposition in bed patient started complaining of a little bit of pain in his chest and difficulty breathing. P atient reports the pain was mild but throughout his entire chest he felt like he could not catch his breath EMS was called back and transported patient to the ER for evaluation. Patient did recently have a stress test with Dr. Daniel for cardiac clearance for surgery on his spine which is planned for this coming Tuesday. - Related Data Home Medications Medication Instructions Recorded Confirmed Venlafaxine HCl ER [Effexor XR] 225 mg PO DAILY 06/16/22 08/25/23 Albuterol Inhaler [Ventolin Hfa 2 puff INHALATION RT-Q4H PRN 08/25/23 08/25/23 Inhaler] Losartan Potassium 50 mg PO DAILY 08/25/23 08/25/23 Previous Rx's Medication Instructions Recorded Budesonide-Formot 160-4.5 Mcg 2 puff INHALATION RT-BID 30 Days 08/27/23 [Symbicort 160-4.5 Mcg Inhaler] #1 each predniSONE 10 mg PO DAILY 8 Days #20 tab 08/27/23 Mirtazapine [Remeron] 30 mg PO HS #10 tab 09/01/23 OXcarbazepine [Trileptal] 300 mg PO BID #20 tab 09/01/23 Venlafaxine HCl [Effexor XR] 225 mg PO DAILY #10 tab 09/01/23 busPIRone HCL 15 mg PO TID #30 tab 09/01/23 Allergies Allergy/AdvReac Type Severity Reaction Status Date / Time Influenza Virus Vaccines Allergy Rash/Hives Verified 02/09/24 23:08 Penicillins Allergy Anaphylaxis Verified 02/09/24 23:08 Review of Systems ROS Statement: Those systems with pertinent positive or pertinent negative responses have been documented in the HPI. ROS Other: All systems not noted in ROS Statement are negative. Past Medical History Past Medical History: COPD, Hearing Disorder / Deafness, Hypertension, Osteoarthritis (OA) Additional Past Medical History / Comment(s): deaf in left ear History of Any Multi-Drug Resistant Organisms: None Reported Past Surgical History: Hernia Repair, Orthopedic Surgery Additional Past Surgical History / Comment(s): LT SHOULDER SX Past Anesthesia/Blood Transfusion Reactions: No Reported Reaction Past Psychological History: Bipolar, Depression Smoking Status: Current some day smoker Past Alcohol Use History: None Reported Past Drug Use History: None Reported - Past Family History Mother History Unknown: Yes Additional Family Medical History / Comment(s): ADOPTED-FAMILY HX UNKNOWN General Exam - General Exam Comments Initial Comments: Physical Exam GENERAL: Chronically ill-appearing, appears older than stated age HENT: Normocephalic, Atraumatic. EYES: PERRL, EOMI PULMONARY: Unlabored respirations Mild expiratory wheezing. CARDIOVASCULAR: RRR Warm and well perfused extremities ABDOMEN: Non-distended SKIN: No rashes or bruising : Deferred NEUROLOGIC: Alert and oriented Normal speech MUSCULOSKELETAL: Moving all extremities with no apparent injury PSYCHIATRIC: No SI/HI Course Vital Signs 02/09/24 02/10/24 02/10/24 23:08 00:46 01:38 Temperature 97.9 F Pulse Rate 76 72 Respiratory 20 18 18 Rate Blood Pressure 154/93 137/85 O2 Sat by Pulse 96 95 97 Oximetry 02/10/24 02/10/24 05:13 05:53 Temperature 97.3 F L Pulse Rate 71 68 Respiratory 18 18 Rate Blood Pressure 164/87 154/84 O2 Sat by Pulse 93 L 94 L Oximetry EKG Findings - EKG Comments: EKG Findings:: EKG interpreted by ky EKG obtained at 12:24 AM rate of 69 rhythm is sinus with a incomplete right bundle branch block, [place] 165 QRS 102 QTc [address] elevations or depressions no evidence of ischemia or infarction. Medical Decision Making - Medical Decision Making Was pt. sent in by a medical professional or institution (, PA, PLATFORM SOFTWARE ENGINEER, urgent care, hospital, or fpc...) When possible be specific @ -No Did you speak to anyone other than the patient for history (EMS, parent, family, police, friend...)? What history was obtained from this source @ -, EMS Did you review nursing and triage notes (agree or disagree)? Why? @ -I reviewed and agree with nursing and triage notes Were old charts reviewed (outside hosp., previous admission, EMS record, old EKG, old radiological studies, urgent care reports/EKG's, fpc records)? Report findings @ -No old charts were reviewed Differential Diagnosis (chest pain, altered mental status, abdominal pain women, abdominal pain men, vaginal bleeding, weakness, fever, dyspnea, syncope, headache, dizziness, GI bleed, back pain, seizure, CVA, palpatations, mental health)? @ -Differential Chest Pain: Stable Angina, Unstable Angina, STEMI, NSTEMI Aortic Dissection, Pneumothorax, Musculoskeletal, Esophageal Spasm GERD, Cholecystitis, Pancreatitis, Zoster, this is not meant to be an all-inclusive list. EKG interpreted by me (3pts min.). @As above X-rays interpreted by me (1pt min.). @ - -No focal consolidations no pneumothorax no widened mediastinum CT interpreted by me (1pt min.). @ -None done U/S interpreted by me (1pt. min.). @ -None done What testing was considered but not performed or refused? (CT, X-rays, U/S, labs)? Why? @ -None What meds were considered but not given or refused? Why? @ -Aspirin given prior to hospital arrival by EMS Did you discuss the management of the patient with other professionals (professionals i.e. , PA, PLATFORM SOFTWARE ENGINEER, lab, RT, psych nurse, social work therapist, receiving operator, teacher, aoc director combat operations officer, home health care case manager)? Give summary @ -No Was smoking cessation discussed for >3mins.? @ -No Was critical care preformed (if so, how long)? @ -No Were there social determinants of health that impacted care today? How? (Homelessness, low income, unemployed, alcoholism, drug addiction, transportation, low edu. Level, literacy, decrease access to med. care, nursing home, rehab)? @ -No Was there de-escalation of care discussed even if they declined (Discuss DNR or withdrawal of care, Hospice)? DNR status @ -No What co-morbidities impacted this encounter? (DM, HTN, Smoking, COPD, CAD, Cancer, CVA, ARF, Chemo, Hep., AIDS, mental health diagnosis, sleep apnea, morbid obesity)? @ -None Was patient admitted / discharged? Hospital course, mention meds given and route, prescriptions, significant lab abnormalities, going to OR and other pe rtinent info. @ -The patient was seen and evaluated history was obtained from the patient and The patient reported chest pain and shortness of breath that was transient and has resolved prior to arrival. Patient recently had a stress test with no clinical findings. EKG was nonischemic. Chest x-ray was unremarkable patient did receive a breathing treatment. Troponins were negative x 2 patient was eager for discharge home did not want to be admitted was discharged home in stable condition with plan for outpatient follow-up. Undiagnosed new problem with uncertain prognosis? @ -No Drug Therapy requiring intensive monitoring for toxicity (Heparin, Nitro, Insulin, Cardizem)? @ -No Were any procedures done? @ -No Diagnosis/symptom? @ -Atypical chest pain Acute, or Chronic, or Acute on Chronic? @ -Default Uncomplicated (without systemic symptoms) or Complicated (systemic symptoms)? @ -Default Side effects of treatment? @ -No Exacerbation, Progression, or Severe Exacerbation? @ -No Poses a threat to life or bodily function? How? (Chest pain, [place], [place], pneumonia, PE, COPD, DKA, ARF, appy, cholecystitis, CVA, Diverticulitis, Homicidal, Suicidal, threat to staff... and all critical care pts) @ -No - Lab Data Result diagrams: 02/09/24 23:39 02/09/24 23:39 Lab Results 02/09/24 02/09/24 02/09/24 Range/Units 23:39 23:39 23:39 WBC 6.6 (3.8-10.6) k/uL RBC 4.18 L (4.30-5.90) m/uL Hgb 13.2 (13.0-17.5) gm/dL Hct 40.1 (39.0-53.0) % MCV 96.0 (80.0-100.0) fL MCH 31.5 (25.0-35.0) pg MCHC 32.8 (31.0-37.0) g/dL RDW 12.7 (11.5-15.5) % Plt Count 281 (150-450) k/uL MPV 7.9 Neutrophils % 39 % Lymphocytes % 48 % Monocytes % 7 % Eosinophils % 3 % Basophils % 1 % Neutrophils # 2.6 (1.3-7.7) k/uL Lymphocytes # 3.2 (1.0-4.8) k/uL Monocytes # 0.4 (0-1.0) k/uL Eosinophils # 0.2 (0-0.7) k/uL Basophils # 0.1 (0-0.2) k/uL PT 10.6 (10.0-12.5) sec INR 1.0 (<1.2) APTT 25.3 (22.0-30.0) sec Sodium 131 L (137-145) mmol/L Potassium (3.5-5.1) mmol/L Chloride 101 (98-107) mmol/L Carbon Dioxide 21 L (22-30) mmol/L Anion Gap 9 mmol/L BUN 10 (9-20) mg/dL Creatinine 0.56 L (0.66-1.25) mg/dL Est GFR (CKD-EPI)AfAm >90 (>60 ml/min/1.73 sqM) Est GFR (CKD-EPI)NonAf >90 (>60 ml/min/1.73 sqM) Glucose 98 (74-99) mg/dL Plasma Lactic Acid Zay (0.7-2.0) mmol/L Calcium 8.5 (8.4-10.2) mg/dL Magnesium 2.1 (1.6-2.3) mg/dL Total Bilirubin 2.0 H (0.2-1.3) mg/dL AST 55 (17-59) U/L ALT 20 (4-49) U/L Alkaline Phosphatase 86 (38-126) U/L Troponin I (0.000-0.034) ng/mL Total Protein 8.2 (6.3-8.2) g/dL Albumin 5.2 H (3.5-5.0) g/dL 02/09/24 02/09/24 02/10/24 Range/Units 23:39 23:39 02:24 WBC (3.8-10.6) k/uL RBC (4.30-5.90) m/uL Hgb (13.0-17.5) gm/dL Hct (39.0-53.0) % MCV (80.0-100.0) fL MCH (25.0-35.0) pg MCHC (31.0-37.0) g/dL RDW (11.5-15.5) % Plt Count (150-450) k/uL MPV Neutrophils % % Lymphocytes % % Monocytes % % Eosinophils % % Basophils % % Neutrophils # (1.3-7.7) k/uL Lymphocytes # (1.0-4.8) k/uL Monocytes # (0-1.0) k/uL Eosinophils # (0-0.7) k/uL Basophils # (0-0.2) k/uL PT (10.0-12.5) sec INR (<1.2) APTT (22.0-30.0) sec Sodium (137-145) mmol/L Potassium (3.5-5.1) mmol/L Chloride (98-107) mmol/L Carbon Dioxide (22-30) mmol/L Anion Gap mmol/L BUN (9-20) mg/dL Creatinine (0.66-1.25) mg/dL Est GFR (CKD-EPI)AfAm (>60 ml/min/1.73 sqM) Est GFR (CKD-EPI)NonAf (>60 ml/min/1.73 sqM) Glucose (74-99) mg/dL Plasma Lactic Acid Zay 1.3 (0.7-2.0) mmol/L Calcium (8.4-10.2) mg/dL Magnesium (1.6-2.3) mg/dL Total Bilirubin (0.2-1.3) mg/dL AST (17-59) U/L ALT (4-49) U/L Alkaline Phosphatase (38-126) U/L Troponin I 0.026 <0.012 (0.000-0.034) ng/mL Total Protein (6.3-8.2) g/dL Albumin (3.5-5.0) g/dL Disposition Clinical Impression: COPD exacerbation Disposition: HOME SELF-CARE Condition: Stable Is patient prescribed a controlled substance at d/c from ED?: No Referrals: Jeronimo Mcmanus MD [Primary Care Provider] - 1-2 days
[2024-02-09 23:51] LABS: Basophils # (A) 0.1 k/uL (0-0.2); Basophils % (A) 1 %; Eosinophils # (A) 0.2 k/uL (0-0.7); Eosinophils % (A) 3 %; HCT 40.1 % (39.0-53.0); HGB 13.2 gm/dL (13.0-17.5); Lymphocytes # (A) 3.2 k/uL (1.0-4.8); Lymphocytes % (A) 48 %; MCH 31.5 pg (25.0-35.0); MCHC 32.8 g/dL (31.0-37.0); Mean Platelet Volume 7.9; Monocytes # (A) 0.4 k/uL (0-1.0); Monocytes % (A) 7 %; Neutrophils # (A) 2.6 k/uL (1.3-7.7); Neutrophils % (A) 39 %; Platelet Count 281 k/uL (150-450); RBC 4.18 m/uL (4.30-5.90); RDW 12.7 % (11.5-15.5); WBC 6.6 k/uL (3.8-10.6)
--- NOTE | 2024-02-09 23:52 | XR ---
EXAMINATION TYPE: XR chest 2V DATE OF EXAM: 02/09/2024 COMPARISON: Prior chest x-ray August 31, 2023 HISTORY: Difficulty in breathing. TECHNIQUE: Frontal and lateral views of the chest are obtained. FINDINGS: There is no focal air space opacity, pleural effusion, or pneumothorax seen. The cardiac silhouette size is stable and within normal limits. The osseous structures are intact. Overlying EK G leads noted on current study. IMPRESSION: No acute process. No significant change from prior.
[2024-02-10 00:19] LABS: ALT 20 U/L (4-49); AST 55 U/L (17-59); African American GFR (CKD) >90 (>60 ml/min/1.73 sqM); Albumin 5.2 g/dL (3.5-5.0); Alkaline Phosphatase 86 U/L (38-126); Anion Gap 9 mmol/L; Blood Urea Nitrogen 10 mg/dL (9-20); Calcium 8.5 mg/dL (8.4-10.2); Carbon Dioxide 21 mmol/L (22-30); Chloride 101 mmol/L (98-107); Glucose 98 mg/dL (74-99); Magnesium 2.1 mg/dL (1.6-2.3); Non-African American GFR(CKD) >90 (>60 ml/min/1.73 sqM); Sodium 131 mmol/L (137-145); Total Protein 8.2 g/dL (6.3-8.2)
[2024-02-10 00:35] LABS: Partial Thromboplastin Time 25.3 sec (22.0-30.0); Prothrombin Time 10.6 sec (10.0-12.5)
[2024-02-10] MEDS: SODIUM CHLORIDE 0.9% 1,000 ML IV STA (00:42)
[2024-02-10] MEDS: methylPREDNISolone SOD SUCCI 125 MG/2 ML VIAL IV STA (00:42)
[2024-02-10 00:54] VITALS: RESP 18
[2024-02-10 06:03] VITALS: BP 154/84; PULSE 68; TEMP 97.3
== END 2024-02-10 06:05 | disposition home or self-care (01) ==
LOC: EC 22:47
DX: J44.1 Chronic obstructive pulmonary disease with (acute) exacerbation (principal); I45.10 Unspecified right bundle-branch block; F17.200 Nicotine dependence, unspecified, uncomplicated; Z88.0 Allergy status to penicillin; Z88.7 Allergy status to serum and vaccine; Z79.899 Other long term (current) drug therapy
CPT/HCPCS: 36415 ×2; 93005; 80053; 83605; 83735; 84484 ×2; 85025; 85610; 85730; 71046; 99285; 96374; 96361 ×5; J2919

== ENCOUNTER 2024-02-17 10:21 | Emergency (ER) | payer OTHER ==
[2024-02-17 10:29] VITALS: TEMP 97.9
--- NOTE | 2024-02-17 11:00 | ED ---
Fall HPI - General Chief Complaint: Fall Stated Complaint: dizzyness/rib pain Time Seen by Provider: 02/17/24 10:57 Source: patient, EMS, RN notes reviewed Mode of arrival: EMS - History of Present Illness Initial Comments: 63-year-old male presenting to the ER via EMS with chief complaint of left rib pain x 3 days. Patient states he was chasing his cat 3 days ago when he tripped and fell on the porch and landed on his left side. He has been having pain in his left ribs since then. Pain is worse with deep inspiration and states he is having trouble breathing due to the pain. States he has a chronic cough due to COPD however denies any new onset cough, fever, chest pain. Denies any other injuries. States he did not hit his head or lose consciousness. - Related Data Home Medications Medication Instructions Recorded Confirmed Venlafaxine HCl ER [Effexor XR] 225 mg PO DAILY 06/16/22 08/25/23 Albuterol Inhaler [Ventolin Hfa 2 puff INHALATION RT-Q4H PRN 08/25/23 08/25/23 Inhaler] Losartan Potassium 50 mg PO DAILY 08/25/23 08/25/23 Previous Rx's Medication Instructions Recorded Budesonide-Formot 160-4.5 Mcg 2 puff INHALATION RT-BID 30 Days 08/27/23 [Symbicort 160-4.5 Mcg Inhaler] #1 each predniSONE 10 mg PO DAILY 8 Days #20 tab 08/27/23 Mirtazapine [Remeron] 30 mg PO HS #10 tab 09/01/23 OXcarbazepine [Trileptal] 300 mg PO BID #20 tab 09/01/23 Venlafaxine HCl [Effexor XR] 225 mg PO DAILY #10 tab 09/01/23 busPIRone HCL 15 mg PO TID #30 tab 09/01/23 Lidocaine 5% Patch [Lidoderm 5% 1 patch TOPICAL DAILY PRN 7 Days 02/17/24 Patch] #7 patch methocarbamoL [Robaxin] 500 mg PO TID PRN #15 tab 02/17/24 Allergies Allergy/AdvReac Type Severity Reaction Status Date / Time Influenza Virus Vaccines Allergy Rash/Hives Verified 02/17/24 10:30 Penicillins Allergy Anaphylaxis Verified 02/17/24 10:30 Review of Systems ROS Statement: Those systems with pertinent positive or pertinent negative responses have been documented in the HPI. ROS Other: All systems not noted in ROS Statement are negative. Past Medical History Past Medical History: COPD, Hearing Disorder / Deafness, Hypertension, Osteoarthritis (OA) Additional Past Medical History / Comment(s): deaf in left ear History of Any Multi-Drug Resistant Organisms: None Reported Past Surgical History: Hernia Repair, Orthopedic Surgery Additional Past Surgical History / Comment(s): LT SHOULDER SX Past Anesthesia/Blood Transfusion Reactions: No Reported Reaction Past Psychological History: Bipolar, Depression Smoking Status: Current some day smoker Past Alcohol Use History: None Reported Past Drug Use History: None Reported - Past Family History Mother History Unknown: Yes Additional Family Medical History / Comment(s): ADOPTED-FAMILY HX UNKNOWN General Exam General appearance: alert, in no apparent distress Head exam: Present: atraumatic, normocephalic, normal inspection Eye exam: Present: normal appearance, PERRL, EOMI. Absent: scleral icterus, conjunctival injection, periorbital swelling ENT exam: Present: normal exam, mucous membranes moist Neck exam: Present: normal inspection. Absent: tenderness, meningismus, lymphadenopathy Respiratory exam: Present: normal lung sounds bilaterally, chest wall tenderness (No contusions or discolorations present over left ribs. Mild diffuse tenderness over left-sided ribs). Absent: respiratory distress, wheezes, rales, rhonchi, stridor Cardiovascular Exam: Present: regular rate, normal rhythm, normal heart sounds. Absent: systolic murmur, diastolic murmur, rubs, gallop, clicks GI/Abdominal exam: Present: soft, normal bowel sounds. Absent: distended, tenderness, guarding, rebound, rigid Extremities exam: Present: normal inspection, full ROM, normal capillary refill. Absent: tenderness, pedal edema, joint swelling, calf tenderness Neurological exam: Present: alert, oriented X3, CN II-XII intact Psychiatric exam: Present: normal affect, normal mood Skin exam: Present: warm, dry, intact, normal color. Absent: rash Course Vital Signs 02/17/24 02/17/24 02/17/24 10:23 13:46 13:54 Temperature 97.9 F Pulse Rate 67 64 68 Respiratory 18 Rate Blood Pressure 186/84 O2 Sat by Pulse 94 L Oximetry Medical Decision Making - Medical Decision Making Was pt. sent in by a medical professional or institution (LA Ortega, DERRICK BOAT OPERATOR, urgent care, hospital, or correction...) When possible be specific @ -No Did you speak to anyone other than the patient for history (EMS, parent, family, police, friend...)? What history was obtained from this source @ -No Did you review nursing and triage notes (agree or disagree)? Why? @ -I reviewed and agree with nursing and triage notes Were old charts reviewed (outside hosp., previous admission, EMS record, old EKG, old radiological studies, urgent care reports/EKG's, correction records)? Report findings @ -No old charts were reviewed Differential Diagnosis (chest pain, altered mental status, abdominal pain women, abdominal pain men, vaginal bleeding, weakness, fever, dyspnea, syncope, headache, dizziness, GI bleed, back pain, seizure, CVA, palpatations, mental health, musculoskeletal)? @ -Differential Musculoskeletal Muscular strain, contusion, ligament sprain, fracture, arthritis, septic arthritis, bursitis, cellulitis, muscle spasm, nerve compression, DVT, arterial occlusion, herpes zoster, electrolyte abnormality, tumor.... This is not meant to be in all inclusive list EKG interpreted by me (3pts min.). @ -None X-rays interpreted by me (1pt min.). @ -Left rib x-ray with AP view revealed likely subtle, nondisplaced eighth rib fracture with likely old fractures and [address] interpreted by me (1pt min.). @ -None done U/S interpreted by me (1pt. min.). @ -None done What testing was considered but not performed or refused? (CT, X-rays, U/S, labs)? Why? @ -None What meds were considered but not given or refused? Why? @ -None Did you discuss the management of the patient with other professionals (professionals i.e. LA Ortega, DERRICK BOAT OPERATOR, lab, RT, psych nurse, social work assistant, senior copywriter, teacher, uniform patrol police officer, case packer)? Give summary @ -No Was smoking cessation discussed for >3mins.? @ -No Was critical care preformed (if so, how long)? @ -No Were there social determinants of health that impacted care today? How? (Homelessness, low income, unemployed, alcoholism, drug addiction, transportation, low edu. Level, literacy, decrease access to med. care, long-term, rehab)? @ -No Was there de-escalation of care discussed even if they declined (Discuss DNR or withdrawal of care, Hospice)? DNR status @ -No What co-morbidities impacted this encounter? (DM, HTN, Smoking, COPD, CAD, Cancer, CVA, ARF, Chemo, Hep., AIDS, mental health diagnosis, sleep apnea, morbid obesity)? @ -None Was patient admitted / discharged? Hospital course, mention meds given and route, prescriptions, significant lab abnormalities, going to OR and other pertinent info. @ -Patient was discharged. Patient was seen and evaluated for left rib pain status post mechanical fall 3 days ago. Vital signs are stable, physical ex amination is remarkable for rib tenderness on the left side. Lungs clear to auscultation bilaterally. Left rib x-ray with AP view interpreted by me reveals likely subtle, nondisplaced eighth rib fracture. During ER visit, patient felt as though his COPD was flaring up but did not have his inhaler on him and was given DuoNeb breathing treatment which resolved symptoms. Rib fracture discussed with patient in detail. Supportive care discussed. Incentive spirometer given to patient to use 10 times hourly while awake to prevent secondary pneumonias or atelectasis. Strict return/alarm symptoms discussed with patient in detail and he shows understanding and agrees with plan. Prescribed Robaxin and lidocaine patches to pharmacy for pain. Case discussed with my attending Dr. Maldonado. Patient discharged in stable condition. Undiagnosed new problem with uncertain prognosis? @ -No Drug Therapy requiring intensive monitoring for toxicity (Heparin, Nitro, Insulin, Cardizem)? @ -No Were any procedures done? @ -No Diagnosis/symptom? @ -Left eighth nondisplaced rib fracture Acute, or Chronic, or Acute on Chronic? @ -Acute Uncomplicated (without systemic symptoms) or Complicated (systemic symptoms)? @ -Uncomplicated Side effects of treatment? @ -No Exacerbation, Progression, or Severe Exacerbation? @ -No Poses a threat to life or bodily function? How? (Chest pain, [place], [place], pneumonia, PE, COPD, DKA, ARF, appy, cholecystitis, CVA, Diverticulitis, Homicidal, Suicidal, threat to staff... and all critical care pts) @ -Low likelihood Disposition Clinical Impression: Left rib fracture Disposition: HOME SELF-CARE Condition: Stable Instructions (If sedation given, give patient instructions): Rib Fracture (ED) Additional Instructions: Please use incentive spirometer 10 times hourly while awake. Please return to the Emergency Department if symptoms worsen or any other concerns. Prescriptions: Lidocaine 5% Patch [Lidoderm 5% Patch] 1 patch TOPICAL DAILY PRN 7 Days #7 patch PRN Reason: Pain methocarbamoL [Robaxin] 500 mg PO TID PRN #15 tab PRN Reason: muscle spasms Is patient prescribed a controlled substance at d/c from ED?: No Referrals: Jeronimo Mcmanus MD [Primary Care Provider] - 1-2 days Time of Disposition: 14:02
--- NOTE | 2024-02-17 13:43 | XR ---
EXAMINATION TYPE: XR ribs LT w pa chest xray DATE OF EXAM: 02/17/2024 COMPARISON: NONE HISTORY: Pain TECHNIQUE: Single view of the chest 4 views of the ribs are submitted. FINDINGS: The lungs are clear. No Evidence for pneumothorax. No evidence for focal contusion. Medi astinal structures are midline. Evaluation of the ribs fails to demonstrate evidence for displaced r ib fracture or secondary sign of rib fracture. IMPRESSION: No acute displaced left-sided rib fracture.
[2024-02-17] MEDS: IPRATROPIUM-ALBUTEROL 3 ML NEB INHALATION STA (13:46)
[2024-02-17 14:26] VITALS: BP 171/78; PULSE 58; RESP 16
== END 2024-02-17 14:30 | disposition home or self-care (01) ==
LOC: EC 10:21
DX: S22.32XA Fracture of one rib, left side, initial encounter for closed fracture (principal); F17.200 Nicotine dependence, unspecified, uncomplicated; Z88.0 Allergy status to penicillin; Z88.7 Allergy status to serum and vaccine; W18.30XA Fall on same level, unspecified, initial encounter
CPT/HCPCS: 94640; 99284

== ENCOUNTER 2024-07-29 11:46 | Emergency (ER) | payer OTHER ==
[2024-07-29 11:53] VITALS: TEMP 97.8
--- NOTE | 2024-07-29 12:06 | ED ---
General Adult HPI - General Chief complaint: Nausea/Vomiting/Diarrhea Stated complaint: Vomiting Time Seen by Provider: 07/29/24 11:52 Source: patient, EMS, RN notes reviewed Mode of arrival: EMS Limitations: no limitations - History of Present Illness Initial comments: Patient is a 64-year-old male presenting to the emergency department nausea vomiting. Onset of symptoms was around 9 PM. Patient vomited a large amount at that time. Patient did well through the night and vomited again a couple of hours ago. Patient still has nausea. Mild abdominal discomfort. No fever. No constipation or diarrhea. No history of chronic similar symptoms previously. - Related Data Home Medications Medication Instructions Recorded Confirmed Venlafaxine HCl ER [Effexor XR] 225 mg PO DAILY 06/16/22 08/25/23 Albuterol Inhaler [Ventolin Hfa 2 puff INHALATION RT-Q4H PRN 08/25/23 08/25/23 Inhaler] Losartan Potassium 50 mg PO DAILY 08/25/23 08/25/23 Previous Rx's Medication Instructions Recorded Budesonide-Formot 160-4.5 Mcg 2 puff INHALATION RT-BID 30 Days 08/27/23 [Symbicort 160-4.5 Mcg Inhaler] #1 each predniSONE 10 mg PO DAILY 8 Days #20 tab 08/27/23 Mirtazapine [Remeron] 30 mg PO HS #10 tab 09/01/23 OXcarbazepine [Trileptal] 300 mg PO BID #20 tab 09/01/23 Venlafaxine HCl [Effexor XR] 225 mg PO DAILY #10 tab 09/01/23 busPIRone HCL 15 mg PO TID #30 tab 09/01/23 Lidocaine 5% Patch [Lidoderm 5% 1 patch TOPICAL DAILY PRN 7 Days 02/17/24 Patch] #7 patch methocarbamoL [Robaxin] 500 mg PO TID PRN #15 tab 02/17/24 Famotidine [Pepcid] 20 mg PO BID #30 tablet 07/29/24 Ondansetron Odt [Zofran Odt] 4 mg PO Q8HR PRN #10 tab 07/29/24 Allergies Allergy/AdvReac Type Severity Reaction Status Date / Time Influenza Virus Vaccines Allergy Rash/Hives Verified 07/29/24 11:53 Penicillins Allergy Anaphylaxis Verified 07/29/24 11:53 pneumococcal vaccine Allergy Nausea & Verified 07/29/24 11:53 Vomiting Review of Systems ROS Statement: Those systems with pertinent positive or pertinent negative responses have been documented in the HPI. ROS Other: All systems not noted in ROS Statement are negative. Constitutional: Denies: fever Eyes: Denies: eye pain ENT: Denies: ear pain Respiratory: Denies: cough Cardiovascular: Denies: chest pain Endocrine: Denies: fatigue Gastrointestinal: Reports: as per HPI, nausea, vomiting Musculoskeletal: Denies: back pain Past Medical History Past Medical History: COPD, Hearing Disorder / Deafness, Hypertension, Osteoarthritis (OA) Additional Past Medical History / Comment(s): deaf in left ear History of Any Multi-Drug Resistant Organisms: None Reported Past Surgical History: Hernia Repair, Orthopedic Surgery Additional Past Surgical History / Comment(s): LT SHOULDER SX Past Anesthesia/Blood Transfusion Reactions: No Reported Reaction Past Psychological History: Bipolar, Depression Smoking Status: Former smoker Past Alcohol Use History: None Reported Past Drug Use History: None Reported - Past Family History Mother History Unknown: Yes Additional Family Medical History / Comment(s): ADOPTED-FAMILY HX UNKNOWN General Exam Limitations: no limitations General appearance: alert, in no apparent distress Head exam: Present: normocephalic Eye exam: Present: normal appearance Neck exam: Present: normal inspection Respiratory exam: Present: normal lung sounds bilaterally Cardiovascular Exam: Present: regular rate, normal rhythm GI/Abdominal exam: Present: soft, normal bowel sounds. Absent: distended, tenderness, guarding, rebound, rigid, pulsatile mass Extremities exam: Present: normal inspection Neurological exam: Present: alert Psychiatric exam: Present: normal affect, normal mood Skin exam: Present: normal color Course Vital Signs 07/29/24 07/29/24 11:47 12:41 Temperature 97.8 F Pulse Rate 63 59 L Respiratory 20 18 Rate Blood Pressure 152/104 152/84 O2 Sat by Pulse 96 96 Oximetry Medical Decision Making - Medical Decision Making Was pt. sent in by a medical professional or institution (Dr. PA, CHEMICAL OPERATOR, urgent care, hospital, or snf...) When possible be specific @ -No Did you speak to anyone other than the patient for history (EMS, parent, family, police, friend...)? What history was obtained from this source @ -No Did you review nursing and triage notes (agree or disagree)? Why? @ -I reviewed and agree with nursing and triage notes Were old charts reviewed (outside hosp., previous admission, EMS record, old EKG, old radiological studies, urgent care reports/EKG's, snf records)? Report findings @ -No old charts were reviewed Differential Diagnosis (chest pain, altered mental status, abdominal pain women, abdominal pain men, vaginal bleeding, weakness, fever, dyspnea, syncope, headache, dizziness, GI bleed, back pain, seizure, CVA, palpatations, mental health, musculoskeletal)? @ -Differential Abdominal Pain Men: Appendicitis, cholecystitis, diverticulosis, ischemic bowel, pancreatitis, hepatitis, UTI, gastroenteritis, AAA, incarcerated hernia, bowel obstruction, constipation, inflammatory bowel, hepatitis, peptic ulcer disease, splenic infarction, perforated viscus, testicular torsion, this is not meant to be an all-inclusive list EKG interpreted by me (3pts min.). @ -As above X-rays interpreted by me (1pt min.). @ -None done CT interpreted by me (1pt min.). @ -None done U/S interpreted by me (1pt. min.). @ -None done What testing was considered but not performed or refused? (CT, X-rays, U/S, labs)? Why? @ -None What meds were considered but not given or refused? Why? @ -None Did you discuss the management of the patient with other professionals (professionals i.e. , PA, CHEMICAL OPERATOR, lab, RT, psych nurse, social work manager, supervisor [employer], teacher, community resource officer, case specialist)? Give summary @ -No Was smoking cessation discussed for >3mins.? @ -No Was critical care preformed (if so, how long)? @ -No Were there social determinants of health that impacted care today? How? (Homelessness, low income, unemployed, alcoholism, drug addiction, transpo rtation, low edu. Level, literacy, decrease access to med. care, [facility], rehab)? @ -No Was there de-escalation of care discussed even if they declined (Discuss DNR or withdrawal of care, Hospice)? DNR status @ -No What co-morbidities impacted this encounter? (DM, HTN, Smoking, COPD, CAD, Cancer, CVA, ARF, Chemo, Hep., AIDS, mental health diagnosis, sleep apnea, morbid obesity)? @ -None Was patient admitted / discharged? Hospital course, mention meds given and route, prescriptions, significant lab abnormalities, going to OR and other pertinent info. @ -Patient presents with nausea and vomiting. Abdominal exam unremarkable. Patient given fluids and medications and feels much better and comfortable with discharge home. Patient updated. Undiagnosed new problem with uncertain prognosis? @ -No Drug Therapy requiring intensive monitoring for toxicity (Heparin, Nitro, Insulin, Cardizem)? @ -No Were any procedures done? @ -No Diagnosis/symptom? @ -Vomiting Acute, or Chronic, or Acute on Chronic? @ -Acute Uncomplicated (without systemic symptoms) or Complicated (systemic symptoms)? @ -Default Side effects of treatment? @ -No Exacerbation, Progression, or Severe Exacerbation? @ -No Poses a threat to life or bodily function? How? (Chest pain, [place], [place], pneumonia, PE, COPD, DKA, ARF, appy, cholecystitis, CVA, Diverticulitis, Homicidal, Suicidal, threat to staff... and all critical care pts) @ -No - Lab Data Result diagrams: 07/29/24 12:03 07/29/24 12:05 Lab Results 07/29/24 07/29/24 Range/Units 12:03 12:05 WBC 5.7 (3.8-10.6) k/uL RBC 4.30 (4.30-5.90) m/uL Hgb 13.7 (13.0-17.5) gm/dL Hct 42.2 (39.0-53.0) % MCV 97.9 (80.0-100.0) fL MCH 31.8 (25.0-35.0) pg MCHC 32.5 (31.0-37.0) g/dL RDW 12.7 (11.5-15.5) % Plt Count 254 (150-450) k/uL MPV 7.4 Neutrophils % 52 % Lymphocytes % 33 % Monocytes % 9 % Eosinophils % 3 % Basophils % 1 % Neutrophils # 3.0 (1.3-7.7) k/uL Lymphocytes # 1.9 (1.0-4.8) k/uL Monocytes # 0.5 (0-1.0) k/uL Eosinophils # 0.2 (0-0.7) k/uL Basophils # 0.1 (0-0.2) k/uL Sodium 137 (137-145) mmol/L Potassium 4.2 (3.5-5.1) mmol/L Chloride 98 (98-107) mmol/L Carbon Dioxide 31 H (22-30) mmol/L Anion Gap 8 mmol/L BUN 17 (9-20) mg/dL Creatinine 0.76 (0.66-1.25) mg/dL Est GFR (CKD-EPI)AfAm >90 (>60 ml/min/1.73 sqM) Est GFR (CKD-EPI)NonAf >90 (>60 ml/min/1.73 sqM) Glucose 99 (74-99) mg/dL Calcium 8.9 (8.4-10.2) mg/dL Total Bilirubin 0.6 (0.2-1.3) mg/dL AST 30 (17-59) U/L ALT 23 (4-49) U/L Alkaline Phosphatase 93 (38-126) U/L Total Protein 7.5 (6.3-8.2) g/dL Albumin 4.8 (3.5-5.0) g/dL Amylase 71 (30-110) U/L Lipase 114 (23-300) U/L Disposition Clinical Impression: Vomiting Disposition: HOME SELF-CARE Condition: Stable Instructions (If sedation given, give patient instructions): Acute Nausea and Vomiting (ED) Additional Instructions: Please do follow-up with your primary care physician in the next couple of days for recheck. Return for uncontrolled vomiting, not tolerating fluids, pain, fever, worsening or changing symptoms or any other concerns. Prescriptions have been sent to pharmacy, Pepcid is also available [id number] Prescriptions: Famotidine [Pepcid] 20 mg PO BID #30 tablet Ondansetron Odt [Zofran Odt] 4 mg PO Q8HR PRN #10 tab PRN Reason: Nausea Is patient prescribed a controlled substance at d/c from ED?: No Referrals: Sharif Moura MD [STAFF PHYSICIAN] - 1-2 days Forms: Area PCPs Time of Disposition: 14:17
[2024-07-29 12:15] LABS: Basophils # (A) 0.1 k/uL (0-0.2); Basophils % (A) 1 %; Eosinophils # (A) 0.2 k/uL (0-0.7); Eosinophils % (A) 3 %; HCT 42.2 % (39.0-53.0); HGB 13.7 gm/dL (13.0-17.5); Lymphocytes # (A) 1.9 k/uL (1.0-4.8); Lymphocytes % (A) 33 %; MCH 31.8 pg (25.0-35.0); MCHC 32.5 g/dL (31.0-37.0); MCV 97.9 fL (80.0-100.0); Mean Platelet Volume 7.4; Monocytes # (A) 0.5 k/uL (0-1.0); Monocytes % (A) 9 %; Neutrophils % (A) 52 %; Platelet Count 254 k/uL (150-450); RDW 12.7 % (11.5-15.5); WBC 5.7 k/uL (3.8-10.6)
[2024-07-29 12:31] LABS: ALT 23 U/L (4-49); AST 30 U/L (17-59); African American GFR (CKD) >90 (>60 ml/min/1.73 sqM); Albumin 4.8 g/dL (3.5-5.0); Alkaline Phosphatase 93 U/L (38-126); Amylase 71 U/L (30-110); Anion Gap 8 mmol/L; Blood Urea Nitrogen 17 mg/dL (9-20); Calcium 8.9 mg/dL (8.4-10.2); Carbon Dioxide 31 mmol/L (22-30); Chloride 98 mmol/L (98-107); Glucose 99 mg/dL (74-99); Lipase 114 U/L (23-300); Non-African American GFR(CKD) >90 (>60 ml/min/1.73 sqM); Potassium 4.2 mmol/L (3.5-5.1); Sodium 137 mmol/L (137-145); Total Bilirubin 0.6 mg/dL (0.2-1.3); Total Protein 7.5 g/dL (6.3-8.2)
[2024-07-29] MEDS: SODIUM CHLORIDE 0.9% 1,000 ML IV STA (12:35)
[2024-07-29] MEDS: ONDANSETRON 4 MG/2 ML VIAL IVP STA (12:35)
[2024-07-29] MEDS: FAMOTIDINE 20 MG/2 ML VIAL IV STA (12:36)
[2024-07-29 14:32] VITALS: BP 154/87; PULSE 60; RESP 20
== END 2024-07-29 14:31 | disposition home or self-care (01) ==
LOC: EC 11:46
DX: R11.2 Nausea with vomiting, unspecified (principal); Z87.891 Personal history of nicotine dependence; Z88.8 Allergy status to other drugs, medicaments and biological substances; Z88.0 Allergy status to penicillin
CPT/HCPCS: 96361 ×2; 96374 ×2; 96375 ×2; 99284 ×2; 36415; 80053; 82150; 83690; 85025; J2405; J3490

== ENCOUNTER 2024-09-29 13:05 | Emergency (ER) | payer OTHER ==
--- NOTE | 2024-09-29 13:58 | XR ---
Chest, 2 view. HISTORY: Difficulty breathing COMPARISON: 02/09/2024 TECHNIQUE: PA and lateral views the chest are obtained. FINDINGS: The lungs are clear and there is no consolidative or interstitial opacity. There is no pleural effusion or pneumothorax. The heart, pulmonary vasculature, mediastinum and ramon appear normal. The osseous structures are intact. IMPRESSION: No significant abnormality seen. No acute cardiopulmonary disease. [facility], Workstation: MARCO ANTONIO, 09/29/2024 1:56 PM
[2024-09-29 14:00] LABS: ALT 16 U/L (4-49); AST 26 U/L (17-59); African American GFR (CKD) >90 (>60 ml/min/1.73 sqM); Albumin 4.4 g/dL (3.5-5.0); Alkaline Phosphatase 91 U/L (38-126); Anion Gap 9 mmol/L; Blood Urea Nitrogen 16 mg/dL (9-20); Calcium 9.4 mg/dL (8.4-10.2); Carbon Dioxide 26 mmol/L (22-30); Chloride 104 mmol/L (98-107); Glucose 87 mg/dL (74-99); Non-African American GFR(CKD) >90 (>60 ml/min/1.73 sqM); Potassium 4.2 mmol/L (3.5-5.1); Sodium 139 mmol/L (137-145); Total Bilirubin 0.5 mg/dL (0.2-1.3); Total Protein 7.1 g/dL (6.3-8.2)
[2024-09-29 14:08] LABS: NT-Pro-B-Type Natriuretic Pept 144 pg/mL
--- NOTE | 2024-09-29 14:10 | ED ---
SOB HPI - General Chief Complaint: Shortness of Breath Stated Complaint: SOB Time Seen by Provider: 09/29/24 14:10 Source: patient, RN notes reviewed Mode of arrival: ambulatory Limitations: no limitations - History of Present Illness Initial Comments: 64-year-old male presented to the ER for evaluation of shortness of breath. Patient has a past medical history significant of COPD and hypertension. Patient reports over the past 3 to 4 days he has been having an increase in shortness of breath especially with exertion. He states he is unable to walk to the bathroom or kitchen without feeling short of breath. He denies home oxygen use, peripheral edema orthopnea. He has not tried inhaler or nebulizers. Patient reports he has quit smoking for approximately 8 months. He denies any fevers, chills, chest pain, or other complaints. - Related Data Home Medications Medication Instructions Recorded Confirmed Venlafaxine HCl ER [Effexor XR] 225 mg PO DAILY 06/16/22 08/25/23 Albuterol Inhaler [Ventolin Hfa 2 puff INHALATION RT-Q4H PRN 08/25/23 08/25/23 Inhaler] Losartan Potassium 50 mg PO DAILY 08/25/23 08/25/23 Previous Rx's Medication Instructions Recorded Budesonide-Formot 160-4.5 Mcg 2 puff INHALATION RT-BID 30 Days 08/27/23 [Symbicort 160-4.5 Mcg Inhaler] #1 each predniSONE 10 mg PO DAILY 8 Days #20 tab 08/27/23 Mirtazapine [Remeron] 30 mg PO HS #10 tab 09/01/23 OXcarbazepine [Trileptal] 300 mg PO BID #20 tab 09/01/23 Venlafaxine HCl [Effexor XR] 225 mg PO DAILY #10 tab 09/01/23 busPIRone HCL 15 mg PO TID #30 tab 09/01/23 Lidocaine 5% Patch [Lidoderm 5% 1 patch TOPICAL DAILY PRN 7 Days 02/17/24 Patch] #7 patch methocarbamoL [Robaxin] 500 mg PO TID PRN #15 tab 02/17/24 Famotidine [Pepcid] 20 mg PO BID #30 tablet 07/29/24 Ondansetron Odt [Zofran Odt] 4 mg PO Q8HR PRN #10 tab 07/29/24 Albuterol Nebulized [Ventolin 2.5 mg INHALATION Q4H PRN #75 ml 09/29/24 Nebulized] predniSONE [Deltasone] 40 mg PO DAILY 5 Days #10 tab 09/29/24 Allergies Allergy/AdvReac Type Severity Reaction Status Date / Time Influenza Virus Vaccines Allergy Rash/Hives Verified 09/29/24 13:19 Penicillins Allergy Anaphylaxis Verified 09/29/24 13:19 pneumococcal vaccine Allergy Nausea & Verified 09/29/24 13:19 Vomiting Review of Systems ROS Statement: Those systems with pertinent positive or pertinent negative responses have been documented in the HPI. ROS Other: All systems not noted in ROS Statement are negative. Past Medical History Past Medical History: COPD, Hearing Disorder / Deafness, Hypertension, Osteoarthritis (OA) Additional Past Medical History / Comment(s): deaf in left ear History of Any Multi-Drug Resistant Organisms: None Reported Past Surgical History: Hernia Repair, Orthopedic Surgery Additional Past Surgical History / Comment(s): LT SHOULDER SX Past Anesthesia/Blood Transfusion Reactions: No Reported Reaction Past Psychological History: Bipolar, Depression Smoking Status: Former smoker Past Alcohol Use History: None Reported Past Drug Use History: None Reported - Past Family History Mother History Unknown: Yes Additional Family Medical History / Comment(s): ADOPTED-FAMILY HX UNKNOWN General Exam Limitations: no limitations General appearance: alert, in no apparent distress Respiratory exam: Present: decreased breath sounds (Throughout). Absent: respiratory distress, wheezes, rales, rhonchi, stridor Cardiovascular Exam: Present: regular rate, normal rhythm, normal heart sounds. Absent: systolic murmur, diastolic murmur, rubs, gallop, clicks Extremities exam: Present: normal inspection, full ROM, normal capillary refill. Absent: tenderness, pedal edema, joint swelling, calf tenderness Neurological exam: Present: alert, oriented X3, CN II-XII intact Skin exam: Present: warm, dry, intact, normal color. Absent: rash Course Vital Signs 09/29/24 09/29/24 09/29/24 13:10 13:30 14:57 Temperature 98.2 F Pulse Rate 69 80 Respiratory 17 20 Rate Blood Pressure 164/81 O2 Sat by Pulse 98 Oximetry 09/29/24 09/29/24 09/29/24 15:08 15:14 15:23 Temperature 98.1 F Pulse Rate 80 64 67 Respiratory 18 Rate Blood Pressure 158/89 O2 Sat by Pulse 100 Oximetry 09/29/24 09/29/24 15:32 16:08 Temperature 98.1 F Pulse Rate 68 60 Respiratory 17 Rate Blood Pressure 150/78 O2 Sat by Pulse 99 Oximetry Medical Decision Making - Medical Decision Making Was pt. sent in by a medical professional or institution (, [place], RESTAURANT SUPERVISOR, urgent care, hospital, or intermediate...) When possible be specific @ -No Did you speak to anyone other than the patient for history (EMS, parent, family, police, friend...)? What history was obtained from this source @ -No Did you review nursing and triage notes (agree or disagree)? Why? @ -I reviewed and agree with nursing and triage notes Were old charts reviewed (outside hosp., previous admission, EMS record, old EKG, old radiological studies, urgent care reports/EKG's, intermediate records)? Report findings @ -Medical records reviewed Differential Diagnosis (chest pain, altered mental status, abdominal pain women, abdominal pain men, vaginal bleeding, weakness, fever, dyspnea, syncope, headache, dizziness, GI bleed, back pain, seizure, CVA, palpatations, mental health, musculoskeletal)? @ -Differential Dyspnea: Coronary syndrome, arrhythmia, tamponade, asthma, COPD, pulmonary embolism, pneumonia, pneumothorax, pulmonary effusion, anaphylaxis, diabetic ketoacidosis, flailed chest, pulmonary contusion, diaphragmatic rupture, anemia, neuromuscular, this is not meant to be an all- inclusive list. EKG interpreted by me (3pts min.). @ -As above X-rays interpreted by me (1pt min.). @ -CXR interpreted by me negative for focal consolidations, pneumothorax or pleural effusions. COPD changes. CT interpreted by me (1pt min.). @ -None done U/S interpreted by me (1pt. min.). @ -None done What testing was considered but not performed or refused? (CT, X-rays, U/S, labs)? Why? @ -None What meds were considered but not given or refused? Why? @ -None Did you discuss the management of the patient with other professionals (professionals i.e. , [place], RESTAURANT SUPERVISOR, lab, RT, psych nurse, psychiatric social worker, soil conservation aide, teacher, corporate banking officer, showcase trimmer)? Give summary @ -No Was smoking cessation discussed for >3mins.? @ -No Was critical care preformed (if so, how long)? @ -No Were there social determinants of health that impacted care today? How? (Homelessness, low income, unemployed, alcoholism, drug addiction, transportation, low edu. Level, literacy, decrease access to med. care, nursing home, rehab)? @ -Patient has decreased access to transportation. He has difficulty following up outpatient due to this. Patient also reports he does not have a primary care physician. Was there de-escalation of care discussed even if they declined (Discuss DNR or withdrawal of care, Hospice)? DNR status @ -No What co-morbidities impacted this encounter? (DM, HTN, Smoking, COPD, CAD, Cancer, CVA, ARF, Chemo, Hep., AIDS, mental health diagnosis, sleep apnea, morbid obesity)? @ -COPD Was patient admitted / discharged? Hospital course, mention meds given and route, prescriptions, significant lab abnormalities, going to OR and other pertinent info. @ -Discharge. 64-year-old male presented to the ER via EMS for evaluation of shortness of breath. Upon rooming, history and physical exam completed. Vitals within acceptable limits. Oxygen saturation 98% on room air. Exam remarkable for decreased breath sounds throughout. As patient was reporting shortness of breath patient was placed on 2 L nasal cannula oxygen for comfort. Laboratory studies obtained showing a WBC of 14.9, normocytic normochromic anemia hemoglobin 12.4. D-dimer 0.33. Troponin negative at 0.019, BNP 144. Viral swabs negative. Chest x-ray negative for acute process. EKG showing a sinus rhythm no ST segment changes. Patient given symptomatic control in the ER with 2 DuoNeb treatments with some improvement of shortness of breath. Patient remained stable throughout ER stay. Patient will be started on prednisone first dose in the ER and instructed to follow-up closely outpatient. Patient was given community resources along with residency clinic information as he states he does not have a primary care physician. Prednisone and nebulized albuterol prescribed. Patient is stable for discharge upon reevaluation. Strict return parameters discussed. Patient discharged in stable condition with follow-up to PCP. Patient verbally expressed understanding and agreement with care plan. Case discussed with ED attending, Dr. Khanpara. Undiagnosed new problem with uncertain prognosis? @ -No Drug Therapy requiring intensive monitoring for toxicity (Heparin, Nitro, Insulin, Cardizem)? @ -No Were any procedures done? @ -No Diagnosis/symptom? @ -COPD exacerbation Acute, or Chronic, or Acute on Chronic? @ -Acute Uncomplicated (without systemic symptoms) or Complicated (systemic symptoms)? @ -Uncomplicated Side effects of treatment? @ -No Exacerbation, Progression, or Severe Exacerbation? @ -Exacerbation Poses a threat to life or bodily function? How? (Chest pain, [place], [place], pneumonia, PE, COPD, DKA, ARF, appy, cholecystitis, CVA, Diverticulitis, Homicidal, Suicidal, threat to staff... and all critical care pts) @ -Low at this time. COPD can lead to hypoxia. - Lab Data Result diagrams: 09/29/24 14:11 09/29/24 13:32 Lab Results 09/29/24 09/29/24 09/29/24 Range/Units 13:32 13:32 13:32 WBC (3.8-10.6) k/uL RBC (4.30-5.90) m/uL Hgb (13.0-17.5) gm/dL Hct (39.0-53.0) % MCV (80.0-100.0) fL MCH (25.0-35.0) pg MCHC (31.0-37.0) g/dL RDW (11.5-15.5) % Plt Count (150-450) k/uL MPV Neutrophils % % Lymphocytes % % Monocytes % % Eosinophils % % Basophils % % Neutrophils # (1.3-7.7) k/uL Lymphocytes # (1.0-4.8) k/uL Monocytes # (0-1.0) k/uL Eosinophils # (0-0.7) k/uL Basophils # (0-0.2) k/uL PT (10.0-12.5) sec INR (<1.2) APTT (22.0-30.0) sec D-Dimer (<0.60) mg/L FEU Sodium 139 (137-145) mmol/L Potassium 4.2 (3.5-5.1) mmol/L Chloride 104 (98-107) mmol/L Carbon Dioxide 26 (22-30) mmol/L Anion Gap 9 mmol/L BUN 16 (9-20) mg/dL Creatinine 0.81 (0.66-1.25) mg/dL Est GFR (CKD-EPI)AfAm >90 (>60 ml/min/1.73 sqM) Est GFR (CKD-EPI)NonAf >90 (>60 ml/min/1.73 sqM) Glucose 87 (74-99) mg/dL Plasma Lactic Acid Zay 1.1 (0.7-2.0) mmol/L Calcium 9.4 (8.4-10.2) mg/dL Total Bilirubin 0.5 (0.2-1.3) mg/dL AST 26 (17-59) U/L ALT 16 (4-49) U/L Alkaline Phosphatase 91 (38-126) U/L Troponin I 0.019 (0.000-0.034) ng/mL NT-Pro-B Natriuret Pep 144 pg/mL Total Protein 7.1 (6.3-8.2) g/dL Albumin 4.4 (3.5-5.0) g/dL Influenza Type A (PCR) (Not Detectd) Influenza Type B (PCR) (Not Detectd) RSV (PCR) (Not Detectd) SARS-CoV-2 (PCR) (Not Detectd) 09/29/24 09/29/24 09/29/24 Range/Units 13:35 14:11 14:13 WBC 4.9 (3.8-10.6) k/uL RBC 3.83 L (4.30-5.90) m/uL Hgb 12.4 L (13.0-17.5) gm/dL Hct 36.3 L (39.0-53.0) % MCV 95.0 (80.0-100.0) fL MCH 32.5 (25.0-35.0) pg MCHC 34.3 (31.0-37.0) g/dL RDW 13.0 (11.5-15.5) % Plt Count 235 (150-450) k/uL MPV 7.5 Neutrophils % 63 % Lymphocytes % 27 % Monocytes % 6 % Eosinophils % 3 % Basophils % 0 % Neutrophils # 3.1 (1.3-7.7) k/uL Lymphocytes # 1.3 (1.0-4.8) k/uL Monocytes # 0.3 (0-1.0) k/uL Eosinophils # 0.2 (0-0.7) k/uL Basophils # 0.0 (0-0.2) k/uL PT 10.6 (10.0-12.5) sec INR 1.0 (<1.2) APTT 22.2 (22.0-30.0) sec D-Dimer (<0.60) mg/L FEU Sodium (137-145) mmol/L Potassium (3.5-5.1) mmol/L Chloride (98-107) mmol/L Carbon Dioxide (22-30) mmol/L Anion Gap mmol/L BUN (9-20) mg/dL Creatinine (0.66-1.25) mg/dL Est GFR (CKD-EPI)AfAm (>60 ml/min/1.73 sqM) Est GFR (CKD-EPI)NonAf (>60 ml/min/1.73 sqM) Glucose (74-99) mg/dL Plasma Lactic Acid Zay (0.7-2.0) mmol/L Calcium (8.4-10.2) mg/dL Total Bilirubin (0.2-1.3) mg/dL AST (17-59) U/L ALT (4-49) U/L Alkaline Phosphatase (38-126) U/L Troponin I (0.000-0.034) ng/mL NT-Pro-B Natriuret Pep pg/mL Total Protein (6.3-8.2) g/dL Albumin (3.5-5.0) g/dL Influenza Type A (PCR) Not Detected (Not Detectd) Influenza Type B (PCR) Not Detected (Not Detectd) RSV (PCR) Not Detected (Not Detectd) SARS-CoV-2 (PCR) Not Detected (Not Detectd) 09/29/24 Range/Units 14:13 WBC (3.8-10.6) k/uL RBC (4.30-5.90) m/uL Hgb (13.0-17.5) gm/dL Hct (39.0-53.0) % MCV (80.0-100.0) fL MCH (25.0-35.0) pg MCHC (31.0-37.0) g/dL RDW (11.5-15.5) % Plt Count (150-450) k/uL MPV Neutrophils % % Lymphocytes % % Monocytes % % Eosinophils % % Basophils % % Neutrophils # (1.3-7.7) k/uL Lymphocytes # (1.0-4.8) k/uL Monocytes # (0-1.0) k/uL Eosinophils # (0-0.7) k/uL Basophils # (0-0.2) k/uL PT (10.0-12.5) sec INR (<1.2) APTT (22.0-30.0) sec D-Dimer 0.33 (<0.60) mg/L FEU Sodium (137-145) mmol/L Potassium (3.5-5.1) mmol/L Chloride (98-107) mmol/L Carbon Dioxide (22-30) mmol/L Anion Gap mmol/L BUN (9-20) mg/dL Creatinine (0.66-1.25) mg/dL Est GFR (CKD-EPI)AfAm (>60 ml/min/1.73 sqM) Est GFR (CKD-EPI)NonAf (>60 ml/min/1.73 sqM) Glucose (74-99) mg/dL Plasma Lactic Acid Zay (0.7-2.0) mmol/L Calcium (8.4-10.2) mg/dL Total Bilirubin (0.2-1.3) mg/dL AST (17-59) U/L ALT (4-49) U/L Alkaline Phosphatase (38-126) U/L Troponin I (0.000-0.034) ng/mL NT-Pro-B Natriuret Pep pg/mL Total Protein (6.3-8.2) g/dL Albumin (3.5-5.0) g/dL Influenza Type A (PCR) (Not Detectd) Influenza Type B (PCR) (Not Detectd) RSV (PCR) (Not Detectd) SARS-CoV-2 (PCR) (Not Detectd) - EKG Data -: EKG Interpreted by [facility] EKG Comments: EKG taken at 13: 17 showing a sinus rhythm. No ST segment elevations or de pressions. No T wave abnormalities. Ventricular rate 68, [place] interval 162, QRS duration 101, QT/QTc 390/412. - Radiology Data Radiology results: report reviewed, image reviewed Disposition Clinical Impression: COPD exacerbation Disposition: HOME SELF-CARE Condition: Stable Instructions (If sedation given, give patient instructions): COPD (Chronic Obstructive Pulmonary Disease) (ED) Additional Instructions: Follow-up closely with residency clinic and/or PCP. Return to the ER for any new or worsening concerns. Prescriptions: predniSONE [Deltasone] 40 mg PO DAILY 5 Days #10 tab Albuterol Nebulized [Ventolin Nebulized] 2.5 mg INHALATION Q4H PRN #75 ml PRN Reason: difficulty in breathing Is patient prescribed a controlled substance at d/c from ED?: No Referrals: None,Stated [Primary Care Provider] - 1-2 days Forms: Area PCPs Time of Disposition: 15:42
[2024-09-29 14:26] LABS: Basophils % (A) 0 %; Eosinophils # (A) 0.2 k/uL (0-0.7); Eosinophils % (A) 3 %; HCT 36.3 % (39.0-53.0); HGB 12.4 gm/dL (13.0-17.5); Lymphocytes # (A) 1.3 k/uL (1.0-4.8); Lymphocytes % (A) 27 %; MCH 32.5 pg (25.0-35.0); MCHC 34.3 g/dL (31.0-37.0); Mean Platelet Volume 7.5; Monocytes # (A) 0.3 k/uL (0-1.0); Monocytes % (A) 6 %; Neutrophils # (A) 3.1 k/uL (1.3-7.7); Neutrophils % (A) 63 %; Platelet Count 235 k/uL (150-450); RBC 3.83 m/uL (4.30-5.90); WBC 4.9 k/uL (3.8-10.6)
[2024-09-29 14:33] LABS: Influenza A Not Detected (Not Detectd); Influenza B Not Detected (Not Detectd); RSV Not Detected (Not Detectd)
[2024-09-29 14:51] LABS: Partial Thromboplastin Time 22.2 sec (22.0-30.0); Prothrombin Time 10.6 sec (10.0-12.5)
[2024-09-29] MEDS: IPRATROPIUM-ALBUTEROL 3 ML NEB INHALATION STA ×2 (14:57→15:23)
[2024-09-29 15:15] VITALS: TEMP 98.1
[2024-09-29] MEDS: predniSONE 20 MG TAB PO STA (15:55)
[2024-09-29 16:11] VITALS: BP 150/78; PULSE 60; RESP 17
== END 2024-09-29 16:08 | disposition home or self-care (01) ==
LOC: EC 13:05
DX: J44.1 Chronic obstructive pulmonary disease with (acute) exacerbation (principal); Z87.891 Personal history of nicotine dependence; Z88.0 Allergy status to penicillin; Z88.7 Allergy status to serum and vaccine
CPT/HCPCS: 36415; 94640 ×2; 93005; 85379; 83880; 80053; 83605; 84484; 85025; 85610; 85730; 87636; 71046; 99285; J7512

== ENCOUNTER 2024-10-24 17:08 | Emergency (ER) | payer OTHER ==
[2024-10-24 17:13] VITALS: TEMP 97.9
[2024-10-24] MEDS: methylPREDNISolone SOD SUCCI 125 MG/2 ML VIAL IV STA (17:40)
[2024-10-24] MEDS: ONDANSETRON 4 MG/2 ML VIAL IVP STA (17:48)
[2024-10-24 18:00] LABS: Basophils % (A) 0 %; Eosinophils # (A) 0.1 k/uL (0-0.7); Eosinophils % (A) 2 %; HCT 37.2 % (39.0-53.0); HGB 12.7 gm/dL (13.0-17.5); Lymphocytes % (A) 40 %; MCH 32.5 pg (25.0-35.0); MCHC 34.2 g/dL (31.0-37.0); Mean Platelet Volume 7.3; Monocytes # (A) 0.3 k/uL (0-1.0); Monocytes % (A) 6 %; Neutrophils # (A) 2.6 k/uL (1.3-7.7); Neutrophils % (A) 51 %; Platelet Count 267 k/uL (150-450); RBC 3.92 m/uL (4.30-5.90); RDW 12.8 % (11.5-15.5); WBC 5.1 k/uL (3.8-10.6)
[2024-10-24 18:13] LABS: ALT 17 U/L (4-49); AST 23 U/L (17-59); African American GFR (CKD) >90 (>60 ml/min/1.73 sqM); Albumin 4.4 g/dL (3.5-5.0); Alkaline Phosphatase 86 U/L (38-126); Anion Gap 11 mmol/L; Blood Urea Nitrogen 14 mg/dL (9-20); Calcium 8.9 mg/dL (8.4-10.2); Carbon Dioxide 21 mmol/L (22-30); Chloride 99 mmol/L (98-107); Glucose 117 mg/dL (74-99); Non-African American GFR(CKD) >90 (>60 ml/min/1.73 sqM); Sodium 131 mmol/L (137-145); Total Bilirubin 0.4 mg/dL (0.2-1.3); Total Protein 6.8 g/dL (6.3-8.2)
--- NOTE | 2024-10-24 18:13 | ED ---
General Adult HPI - General Chief complaint: Shortness of Breath Stated complaint: SOB Time Seen by Provider: 10/24/24 17:10 Source: patient, RN notes reviewed, old records reviewed Mode of arrival: EMS Limitations: no limitations - History of Present Illness Initial comments: 64-year-old male presenting with increased cough and dyspnea, history of COPD. Patient denies chest pain. Denies fever. Denies lower extremity pain or swelling. No abdominal pain nausea or vomiting. Denies known sick contacts. Cough is minimally productive. - Related Data Home Medications Medication Instructions Recorded Confirmed Venlafaxine HCl ER [Effexor XR] 225 mg PO DAILY 06/16/22 10/24/24 Naproxen Sodium [Aleve] 440 mg PO Q8H PRN 10/24/24 10/24/24 Previous Rx's Medication Instructions Recorded Mirtazapine [Remeron] 30 mg PO HS #10 tab 09/01/23 OXcarbazepine [Trileptal] 300 mg PO BID #20 tab 09/01/23 busPIRone HCL 15 mg PO TID #30 tab 09/01/23 Albuterol Inhaler [Ventolin Hfa 1 - 2 puff INHALATION Q4HR PRN #1 10/24/24 Inhaler] each Azithromycin [Zithromax Z Pack] 1 tab PO DIRECTED #6 tab 10/24/24 predniSONE 50 mg PO DAILY #5 tab 10/24/24 Allergies Allergy/AdvReac Type Severity Reaction Status Date / Time Influenza Virus Vaccines Allergy Rash/Hives Verified 10/24/24 18:04 Penicillins Allergy Anaphylaxis Verified 10/24/24 18:04 pneumococcal vaccine Allergy Nausea & Verified 10/24/24 18:04 Vomiting Review of Systems ROS Statement: Those systems with pertinent positive or pertinent negative responses have been documented in the HPI. ROS Other: All systems not noted in ROS Statement are negative. Past Medical History Past Medical History: COPD, Hearing Disorder / Deafness, Hypertension, Osteoarthritis (OA) Additional Past Medical History / Comment(s): deaf in left ear History of Any Multi-Drug Resistant Organisms: None Reported Past Surgical History: Hernia Repair, Orthopedic Surgery Additional Past Surgical History / Comment(s): LT SHOULDER SX Past Anesthesia/Blood Transfusion Reactions: No Reported Reaction Past Psychological History: Bipolar, Depression Smoking Status: Current some day smoker Past Alcohol Use History: None Reported Past Drug Use History: None Reported - Past Family History Mother History Unknown: Yes Additional Family Medical History / Comment(s): ADOPTED-FAMILY HX UNKNOWN General Exam Limitations: no limitations General appearance: alert, in no apparent distress Head exam: Present: atraumatic, normocephalic Eye exam: Present: other (patch Over the left eye) ENT exam: Present: normal exam Neck exam: Present: normal inspection. Absent: tenderness, meningismus Respiratory exam: Present: wheezes, rhonchi, decreased breath sounds. Absent: respiratory distress Cardiovascular Exam: Present: regular rate, normal rhythm GI/Abdominal exam: Present: soft. Absent: distended, tenderness, guarding Extremities exam: Present: normal inspection, normal capillary refill. Absent: pedal edema, calf tenderness Neurological exam: Present: alert, oriented X3, CN II-XII intact. Absent: motor sensory deficit Psychiatric exam: Present: normal affect, normal mood Skin exam: Present: warm, dry, intact. Absent: cyanosis, diaphoretic Course Vital Signs 10/24/24 10/24/24 10/24/24 17:10 18:49 18:55 Temperature 97.9 F Pulse Rate 79 72 67 Respiratory 22 20 Rate Blood Pressure 165/88 144/98 O2 Sat by Pulse 97 97 Oximetry 10/24/24 18:56 Temperature Pulse Rate 73 Respiratory Rate Blood Pressure O2 Sat by Pulse Oximetry Medical Decision Making - Medical Decision Making Was pt. sent in by a medical professional or institution ([place], DEPUTY SHERIFF GENERALIST, urgent care, hospital, or intermediate...) When possible be specific @ -No Did you speak to anyone other than the patient for history (EMS, parent, family, police, friend...)? What history was obtained from this source @ -Yes, paramedics Did you review nursing and triage notes (agree or disagree)? Why? @ -I reviewed and agree with nursing and triage notes Were old charts reviewed (outside hosp., previous admission, EMS record, old EKG, old radiological studies, urgent care reports/EKG's, intermediate records)? Report findings @ -No old charts were reviewed Differential Dyspnea: Coronary syndrome, arrhythmia, tamponade, asthma, COPD, pulmonary embolism, pneumonia, pneumothorax, pulmonary effusion, anaphylaxis, diabetic ketoacidosis, flailed chest, pulmonary contusion, diaphragmatic rupture, anemia, neuromuscular, this is not meant to be an all-inclusive list. EKG interpreted by me (3pts min.). @ -Sinus rhythm rate of 83, [place] interval 151, QRS duration 106, QTc 409 X-rays interpreted by me (1pt min.). @ -Chest x-ray negative for acute cardiopulmonary findings CT interpreted by me (1pt min.). @ -None done U/S interpreted by me (1pt. min.). @ -None done What testing was considered but not performed or refused? (CT, X-rays, U/S, labs)? Why? @ -None What meds were considered but not given or refused? Why? @ -None Did you discuss the management of the patient with other professionals (professionals i.e. , [place], DEPUTY SHERIFF GENERALIST, lab, RT, psych nurse, social work associate, range feeder, teacher, soil science technical officer, pillowcase maker)? Give summary @ -No Was smoking cessation discussed for >3mins.? @ -No Was critical care preformed (if so, how long)? @ -No Were there social determinants of health that impacted care today? How? (Ben elessness, low income, unemployed, alcoholism, drug addiction, transportation, low edu. Level, literacy, decrease access to med. care, alf, rehab)? @ -No Was there de-escalation of care discussed even if they declined (Discuss DNR or withdrawal of care, Hospice)? DNR status @ -No What co-morbidities impacted this encounter? (DM, HTN, Smoking, COPD, CAD, Cancer, CVA, ARF, Chemo, Hep., AIDS, mental health diagnosis, sleep apnea, morbid obesity)? @ -COPD @ -[hospital course: Patient with history of COPD, wheezing, no respiratory distress, no associated symptoms of chest pain, no lower extremity pain or swelling. Chest x-ray is clear without consolidated pneumonia, normal laboratory test including CBC, CMP, viral panel. Patient given steroids, albuterol and Atrovent in the emergency department. Patient feeling better with stable vitals. Patient will follow-up with primary care provider Undiagnosed new problem with uncertain prognosis? @ -No Drug Therapy requiring intensive monitoring for toxicity (Heparin, Nitro, Insulin, Cardizem)? @ -No Were any procedures done? @ -No Diagnosis/symptom? @ -COPD exacerbation Acute, or Chronic, or Acute on Chronic? @Acute on chronic Uncomplicated (without systemic symptoms) or Complicated (systemic symptoms)? @ -Default Side effects of treatment? @ -No Exacerbation, Progression, or Severe Exacerbation? @ -No Poses a threat to life or bodily function? How? (Chest pain, [place], [place], pneumonia, PE, COPD, DKA, ARF, appy, cholecystitis, CVA, Diverticulitis, Homicidal, Suicidal, threat to staff... and all critical care pts) @ -Yes, COPD, low risk at this time - Lab Data Result diagrams: 10/24/24 17:37 10/24/24 17:37 Lab Results 10/24/24 10/24/24 10/24/24 Range/Units 17:37 17:37 17:37 WBC 5.1 (3.8-10.6) k/uL RBC 3.92 L (4.30-5.90) m/uL Hgb 12.7 L (13.0-17.5) gm/dL Hct 37.2 L (39.0-53.0) % MCV 95.0 (80.0-100.0) fL MCH 32.5 (25.0-35.0) pg MCHC 34.2 (31.0-37.0) g/dL RDW 12.8 (11.5-15.5) % Plt Count 267 (150-450) k/uL MPV 7.3 Neutrophils % 51 % Lymphocytes % 40 % Monocytes % 6 % Eosinophils % 2 % Basophils % 0 % Neutrophils # 2.6 (1.3-7.7) k/uL Lymphocytes # 2.0 (1.0-4.8) k/uL Monocytes # 0.3 (0-1.0) k/uL Eosinophils # 0.1 (0-0.7) k/uL Basophils # 0.0 (0-0.2) k/uL Sodium 131 L (137-145) mmol/L Potassium 4.0 (3.5-5.1) mmol/L Chloride 99 (98-107) mmol/L Carbon Dioxide 21 L (22-30) mmol/L Anion Gap 11 mmol/L BUN 14 (9-20) mg/dL Creatinine 0.69 (0.66-1.25) mg/dL Est GFR (CKD-EPI)AfAm >90 (>60 ml/min/1.73 sqM) Est GFR (CKD-EPI)NonAf >90 (>60 ml/min/1.73 sqM) Glucose 117 H (74-99) mg/dL Calcium 8.9 (8.4-10.2) mg/dL Total Bilirubin 0.4 (0.2-1.3) mg/dL AST 23 (17-59) U/L ALT 17 (4-49) U/L Alkaline Phosphatase 86 (38-126) U/L Total Protein 6.8 (6.3-8.2) g/dL Albumin 4.4 (3.5-5.0) g/dL Influenza Type A (PCR) Not Detected (Not Detectd) Influenza Type B (PCR) Not Detected (Not Detectd) RSV (PCR) Not Detected (Not Detectd) SARS-CoV-2 (PCR) Not Detected (Not Detectd) Disposition Clinical Impression: COPD exacerbation Disposition: HOME SELF-CARE Condition: Fair Instructions (If sedation given, give patient instructions): COPD (Chronic Obst ructive Pulmonary Disease) (ED) Prescriptions: predniSONE 50 mg PO DAILY #5 tab Albuterol Inhaler [Ventolin Hfa Inhaler] 1 - 2 puff INHALATION Q4HR PRN #1 each PRN Reason: Shortness Of Breath Azithromycin [Zithromax Z Pack] 1 tab PO DIRECTED #6 tab Is patient prescribed a controlled substance at d/c from ED?: No Referrals: None,Stated [Primary Care Provider] - 1-2 days Pancho Dillard DO [REFERRING] - 1-2 days Time of Disposition: 18:41
--- NOTE | 2024-10-24 18:33 | XR ---
EXAMINATION TYPE: XR chest 2V DATE OF EXAM: 10/24/2024 5:57 PM COMPARISON: 09/29/2024 CLINICAL INDICATION: Male, 64 years old with history of cough/kinsey, TECHNIQUE: XR chest 2V view(s) obtained. FINDINGS: The heart size is normal. The pulmonary vasculature is normal. The lungs are clear. IMPRESSION: 1. No acute pulmonary process. [facility], , 10/24/2024 6:30 PM
[2024-10-24 18:34] LABS: Influenza A Not Detected (Not Detectd); Influenza B Not Detected (Not Detectd); RSV Not Detected (Not Detectd)
[2024-10-24] MEDS: ALBUTEROL NEBULIZED 2.5 MG/3 ML INHALATION STA (18:47)
[2024-10-24] MEDS: IPRATROPIUM-ALBUTEROL 3 ML NEB INHALATION STA (18:48)
[2024-10-24 18:57] VITALS: PULSE 73
[2024-10-24 19:01] VITALS: BP 144/98; RESP 20
[2024-10-24] MEDS: SODIUM CHLORIDE 0.9% 500 ML 500 ML IV ONE (19:01)
== END 2024-10-24 19:38 | disposition home or self-care (01) ==
LOC: EC 17:08
DX: J44.1 Chronic obstructive pulmonary disease with (acute) exacerbation (principal); Z88.7 Allergy status to serum and vaccine; Z79.52 Long term (current) use of systemic steroids; Z88.0 Allergy status to penicillin
CPT/HCPCS: 99285 ×2; 96374 ×2; 96375 ×2; 96361 ×2; 36415; 94640; 93005; 80053; 85025; 87636; 71046; J2405; J2919

== ENCOUNTER 2025-03-24 09:00 | Emergency (ER) | payer OTHER ==
[2025-03-24 09:06] VITALS: RESP 18; TEMP 98.2
[2025-03-24 09:54] LABS: Basophils # (A) 0.10 10*3/uL (0.00-0.10); Basophils % (A) 2.0 %; Eosinophils # (A) 0.34 10*3/uL (0.04-0.35); Eosinophils % (A) 6.8 %; HCT 37.9 % (39.6-50.0); HGB 13.2 g/dL (13.0-17.0); Lymphocytes # (A) 2.54 10*3/uL (0.90-5.00); Lymphocytes % (A) 50.5 %; MCH 32.9 pg (27.0-32.0); MCHC 34.8 g/dL (32.0-37.0); MCV 94.5 fL (80.0-97.0); Monocytes # (A) 0.50 10*3/uL (0.20-1.00); Monocytes % (A) 9.9 %; Neutrophils # (A) 1.54 10*3/uL (1.80-7.70); Neutrophils % (A) 30.6 %; Platelet Count 258 10*3/uL (140-440); RBC 4.01 10*6/uL (4.40-5.60); RDW 12.9 % (11.5-14.5); WBC 5.03 10*3/uL (4.50-10.00)
[2025-03-24 10:00] LABS: ALT 35 U/L (4-49); AST 42 U/L (17-59); African American GFR (CKD) >90 (>60 ml/min/1.73 sqM); Albumin 4.7 g/dL (3.5-5.0); Alkaline Phosphatase 92 U/L (38-126); Anion Gap 12 mmol/L; Blood Urea Nitrogen 11 mg/dL (9-20); Calcium 9.1 mg/dL (8.4-10.2); Carbon Dioxide 26 mmol/L (22-30); Chloride 101 mmol/L (98-107); Glucose 87 mg/dL (74-99); Magnesium 2.1 mg/dL (1.6-2.3); Non-African American GFR(CKD) >90 (>60 ml/min/1.73 sqM); Potassium 4.1 mmol/L (3.5-5.1); Sodium 139 mmol/L (137-145); Total Protein 7.3 g/dL (6.3-8.2)
[2025-03-24] MEDS: methylPREDNISolone SOD SUCCI 125 MG/2 ML VIAL IV STA (10:07)
[2025-03-24] MEDS: SODIUM CHLORIDE 0.9% 1,000 ML IV ONE (10:08)
[2025-03-24] MEDS: MAGNESIUM SULFATE-D5W PMX 1 GM in DEXTROSE/WATER 1 100ML.BAG IVPB STA (10:08)
--- NOTE | 2025-03-24 10:10 | XR ---
EXAMINATION TYPE: XR chest 2V DATE OF EXAM: 03/24/2025 10:02 AM COMPARISON: Multiple radiographs, with the most recent on 10/24/2024 TECHNIQUE: XR chest 2V Frontal and lateral views of the chest. CLINICAL INDICATION:Male, 64 years old with history of difficulty breathing; FINDINGS: Lungs/Pleura: There is flattening of the diaphragm with increased lucency of the lungs. No evidence o f pneumothorax or effusion. Subtle patchy bibasilar opacities. Pulmonary vascularity: Unremarkable. Heart/mediastinum: Cardiomediastinal silhouette is unremarkable. Musculoskeletal: No acute osseous pathology. IMPRESSION: 1. Subtle patchy bibasilar opacities concerning for pneumonia. 2. COPD changes. [facility], , 03/24/2025 10:08 AM
[2025-03-24] MEDS: ALBUTEROL HFA INHALER INHALATION STA (10:38)
[2025-03-24 10:56] LABS: RSV Not Detected (Not Detectd)
--- NOTE | 2025-03-24 11:11 | ED ---
General Adult HPI - General Chief complaint: Shortness of Breath Stated complaint: YUDITH Time Seen by Provider: 03/24/25 09:20 Source: patient, EMS, RN notes reviewed, old records reviewed Mode of arrival: EMS Limitations: no limitations - History of Present Illness Initial comments: 64-year-old male presents emergency department complaining of cough, congestion. States it has been worse over the last few weeks but significantly worse over the last couple days. Endorses a productive cough of yellow sputum. He has a history of COPD. States his home breathing treatments are not improving. Denies any chest pain. Denies nausea vomiting or abdominal pain. Denies any fevers or sick contacts. Presents for further evaluation at this time. Is not on oxygen at home. - Related Data Home Medications Medication Instructions Recorded Confirmed Venlafaxine HCl ER [Effexor XR] 225 mg PO DAILY 06/16/22 10/24/24 Naproxen Sodium [Aleve] 440 mg PO Q8H PRN 10/24/24 10/24/24 Previous Rx's Medication Instructions Recorded Mirtazapine [Remeron] 30 mg PO HS #10 tab 09/01/23 OXcarbazepine [Trileptal] 300 mg PO BID #20 tab 09/01/23 busPIRone HCL 15 mg PO TID #30 tab 09/01/23 Albuterol Inhaler [Ventolin Hfa 1 - 2 puff INHALATION Q4HR PRN #1 10/24/24 Inhaler] each Azithromycin [Zithromax Z Pack] 1 tab PO DIRECTED #6 tab 10/24/24 predniSONE 50 mg PO DAILY #5 tab 10/24/24 Albuterol Sulfate [Ventolin HFA] 1 - 2 puff INHALATION Q6H PRN #1 03/24/25 each Azithromycin [Zithromax] 250 mg PO DAILY 4 Days #4 tab 03/24/25 predniSONE [Deltasone] 40 mg PO DAILY 5 Days #10 tab 03/24/25 Allergies Allergy/AdvReac Type Severity Reaction Status Date / Time Influenza Virus Vaccines Allergy Rash/Hives Verified 10/24/24 18:04 Penicillins Allergy Anaphylaxis Verified 10/24/24 18:04 pneumococcal vaccine Allergy Nausea & Verified 10/24/24 18:04 Vomiting Review of Systems ROS Statement: Those systems with pertinent positive or pertinent negative responses have been documented in the HPI. Review of Systems: CONST: Denies fever EYES: Denies blurry vision ENT: Denies nasal congestion C/V: Denies Chest pain RESP: Cough, congestion GI: Denies abdominal pain : Denies dysuria SKIN: Denies rash. MSK: Denies joint pain. NEURO: Denies headache ROS Other: All systems not noted in ROS Statement are negative. Past Medical History Past Medical History: COPD, Hearing Disorder / Deafness, Hypertension, Osteoarthritis (OA) Additional Past Medical History / Comment(s): deaf in left ear History of Any Multi-Drug Resistant Organisms: None Reported Past Surgical History: Hernia Repair, Orthopedic Surgery Additional Past Surgical History / Comment(s): LT SHOULDER SX Past Anesthesia/Blood Transfusion Reactions: No Reported Reaction Past Psychological History: Bipolar, Depression Smoking Status: Current some day smoker Past Alcohol Use History: None Reported Past Drug Use History: None Reported - Past Family History Mother History Unknown: Yes Additional Family Medical History / Comment(s): ADOPTED-FAMILY HX UNKNOWN General Exam - General Exam Comments Initial Comments: General: Appears in no acute distress. HEAD: Normal with no signs of head trauma. EYES: PERRLA, EOMI, conjunctiva normal, no discharge. ENT: Hearing grossly intact, normal oropharynx. RESPIRATORY: Bilateral end expiratory wheezing that is mild. No significant hypoxia. No increased work of breathing. C/V: Regular rate and rhythm. S1 and S2 auscultated, no edema, peripheral pulses 2+ and intact throughout ABD: Abd is soft, nontender, nondistended EXT: Normal range of motion, no obvious deformity SKIN: No rashes or lesions observed on exposed skin. NEURO: Alert and oriented x 4. Limitations: no limitations Course Vital Signs 03/24/25 03/24/25 09:01 11:26 Temperature 98.2 F Pulse Rate 64 69 Respiratory 18 18 Rate Blood Pressure 153/83 132/95 O2 Sat by Pulse 95 96 Oximetry Medical Decision Making - Medical Decision Making Was pt. sent in by a medical professional or institution (, PA, WINDOWS SERVER ADMINISTRATOR, urgent care, hospital, or snf...) When possible be specific @ -No Did you speak to anyone other than the patient for history (EMS, parent, family, police, friend...)? What history was obtained from this source @ -No Did you review nursing and triage notes (agree or disagree)? Why? @ -I reviewed and agree with nursing and triage notes Were old charts reviewed (outside hosp., previous admission, EMS record, old EKG, old radiological studies, urgent care reports/EKG's, snf records)? Report findings @ -Today's EKG compared with EKG from October 2024 with no obvious significant acute change. Differential Diagnosis (chest pain, altered mental status, abdominal pain women, abdominal pain men, vaginal bleeding, weakness, fever, dyspnea, syncope, headache, dizziness, GI bleed, back pain, seizure, CVA, palpatations, mental health, musculoskeletal)? @ -COVID, flu, RSV, COPD, pneumonia. This list is not all inclusive. EKG interpreted by me (3pts min.). @ -As above X-rays interpreted by me (1pt min.). @ -Chest x-ray reveals subtle patchy bibasilar opacities concerning for pneumonia. CT interpreted by me (1pt min.). @ -None done U/S interpreted by me (1pt. min.). @ -None done What testing was considered but not performed or refused? (CT, X-rays, U/S, labs)? Why? @ -None What meds were considered but not given or refused? Why? @ -None Did you discuss the management of the patient with other professionals (professionals i.e. , PA, WINDOWS SERVER ADMINISTRATOR, lab, RT, psych nurse, forensic social worker, director of distance learning, teacher, special loan officer, correctional case manager)? Give summary @ -No Was smoking cessation discussed for >3mins.? @ -No Was critical care preformed (if so, how long)? @ -No Were there social determinants of health that impacted care today? How? (Homelessness, low income, unemployed, alcoholism, drug addiction, transport ation, low edu. Level, literacy, decrease access to med. care, half-way, rehab)? @ -No Was there de-escalation of care discussed even if they declined (Discuss DNR or withdrawal of care, Hospice)? DNR status @ -No What co-morbidities impacted this encounter? (DM, HTN, Smoking, COPD, CAD, Cancer, CVA, ARF, Chemo, Hep., AIDS, mental health diagnosis, sleep apnea, morbid obesity)? @ -COPD Was patient admitted / discharged? Hospital course, mention meds given and route, prescriptions, significant lab abnormalities, going to OR and other pertinent info. @ -Based on patient's presentation and physical exam, presents emergency department complaining of cough, congestion and possible COPD. Vitals within acceptable limits. I am concerned for COPD. Will obtain chest x-ray, labs, EKG and viral swabs. He was in agreement this plan. Symptomatically treat with IV fluids, IV steroids. I did offer breathing treatment however he declined and will be given albuterol inhaler instead. EKG shows no signs of acute ischemia. Chest x-ray shows bibasilar pneumonia. Remainder the labs unremarkable. At this time, patient is feeling improved. Vitals remained within acceptable limits. Discussed workup. Patient be discharged home at this time with antibiotics, prednisone, albuterol inhaler. He was in agreement this plan. Strict return precautions discussed. I instructed the patient to follow up with their PCP in the next 1-3 day. I explained that the patient should return to the emergency department if they experience any worsening symptoms. Strict return precautions were discussed with the patient. The patient expressed understanding of these instructions. I answered all questions that the patient had. The patient was discharged home in good condition with their prescriptions and follow up information. Undiagnosed new problem with uncertain prognosis? @ -No Drug Therapy requiring intensive monitoring for toxicity (Heparin, Nitro, Insulin, Cardizem)? @ -No Were any procedures done? @ -No Diagnosis/symptom? @ -COPD, pneumonia Acute, or Chronic, or Acute on Chronic? @ -Acute Uncomplicated (without systemic symptoms) or Complicated (systemic symptoms)? @ -uncomplicated Side effects of treatment? @ -No Exacerbation, Progression, or Severe Exacerbation? @ -No Poses a threat to life or bodily function? How? (Chest pain, [place], [place], pneumonia, PE, COPD, DKA, ARF, appy, cholecystitis, CVA, Diverticulitis, Homicidal, Suicidal, threat to staff... and all critical care pts) @ -Unlikely at this time - Lab Data Result diagrams: 03/24/25 09:30 03/24/25 09:30 Lab Results 03/24/25 03/24/25 03/24/25 Range/Units : 09:30 10:15 WBC 5.03 (4.50-10.00) 10*3/uL RBC 4.01 L (4.40-5.60) 10*6/uL Hgb 13.2 (13.0-17.0) g/dL Hct 37.9 L (39.6-50.0) % MCV 94.5 (80.0-97.0) fL MCH 32.9 H (27.0-32.0) pg MCHC 34.8 (32.0-37.0) g/dL Plt Count 258 (140-440) 10*3/uL MPV 9.1 L (9.5-12.2) fL Immature Gran % (Auto) 0.2 % Neutrophils % 30.6 % Lymphocytes % 50.5 % Monocytes % 9.9 % Eosinophils % 6.8 % Basophils % 2.0 % Immature Gran # 0.01 (0.00-0.04) 10*3/uL Neutrophils # 1.54 L (1.80-7.70) 10*3/uL Lymphocytes # 2.54 (0.90-5.00) 10*3/uL Monocytes # 0.50 (0.20-1.00) 10*3/uL Eosinophils # 0.34 (0.04-0.35) 10*3/uL Basophils # 0.10 (0.00-0.10) 10*3/uL Sodium 139 (137-145) mmol/L Potassium 4.1 (3.5-5.1) mmol/L Chloride 101 (98-107) mmol/L Carbon Dioxide 26 (22-30) mmol/L Anion Gap 12 mmol/L BUN 11 (9-20) mg/dL Creatinine 0.61 L (0.66-1.25) mg/dL Est GFR (CKD-EPI)AfAm >90 (>60 ml/min/1.73 sqM) Est GFR (CKD-EPI)NonAf >90 (>60 ml/min/1.73 sqM) Glucose 87 (74-99) mg/dL Calcium 9.1 (8.4-10.2) mg/dL Magnesium 2.1 (1.6-2.3) mg/dL Total Bilirubin 0.4 (0.2-1.3) mg/dL AST 42 (17-59) U/L ALT 35 (4-49) U/L Alkaline Phosphatase 92 (38-126) U/L Total Protein 7.3 (6.3-8.2) g/dL Albumin 4.7 (3.5-5.0) g/dL Influenza Type A (PCR) Not Detected (Not Detectd) Influenza Type B (PCR) Not Detected (Not Detectd) RSV (PCR) Not Detected (Not Detectd) SARS-CoV-2 (PCR) Not Detected (Not Detectd) - EKG Data -: EKG Interpreted by Me EKG Comments: 12-lead Electrocardiogram Interpretation Note EKG was reviewed and interpreted by myself. 12-lead ECG performed at 0922 is interpreted by me as revealing normal sinus rhythm at a rate of 67 beats per minute. [place] is normal. [place] interval is 168 ms, QRS duration is 95 ms, QTc is 412 ms.. There were no ST or T wave abnormalities to suggest myocardial ischemia or injury. R wave progression across the precordium was satisfactory. By my interpretation this EKG is non-diagnostic for acute ischemia. Disposition Clinical Impression: COPD exacerbation, Community acquired pneumonia Disposition: HOME SELF-CARE Condition: Good Instructions (If sedation given, give patient instructions): COPD (Chronic Obstructive Pulmonary Disease) (DC), Community Acquired Pneumonia (ED) Prescriptions: predniSONE [Deltasone] 40 mg PO DAILY 5 Days #10 tab Albuterol Sulfate [Ventolin HFA] 1 - 2 puff INHALATION Q6H PRN #1 each PRN Reason: Dyspnea Azithromycin [Zithromax] 250 mg PO DAILY 4 Days #4 tab Is patient prescribed a controlled substance at d/c from ED?: No Referrals: None,Stated [Primary Care Provider] - 1-2 days Sohail Burks MD [STAFF PHYSICIAN] - 1-2 days Forms: Area PCPs Time of Disposition: 11:11
[2025-03-24] MEDS: AZITHROMYCIN 500 MG TAB PO STA (11:25)
[2025-03-24 11:29] VITALS: BP 132/95; PULSE 69
== END 2025-03-24 11:40 | disposition home or self-care (01) ==
LOC: EC 09:00
DX: J44.0 Chronic obstructive pulmonary disease with (acute) lower respiratory infection (principal); J18.9 Pneumonia, unspecified organism; Z11.52 Encounter for screening for COVID-19; F17.200 Nicotine dependence, unspecified, uncomplicated; Z88.0 Allergy status to penicillin; Z88.7 Allergy status to serum and vaccine
CPT/HCPCS: 36415; 94640; 93005; 80053; 83735; 85025; 87636; 71046; 99285; 96365; 96375; J3475; J2919

== ENCOUNTER 2025-04-02 12:29 | Emergency (ER) | payer OTHER ==
[2025-04-02 12:36] VITALS: RESP 20
--- NOTE | 2025-04-02 12:51 | ED ---
SOB HPI - General Chief Complaint: Shortness of Breath Stated Complaint: SOB Time Seen by Provider: 04/02/25 12:38 Source: patient, RN notes reviewed, old records reviewed Mode of arrival: EMS Limitations: no limitations - History of Present Illness Initial Comments: This is a 64-year-old male who presents today for evaluation. He is here today for evaluation in regards to shortness of breath patient has history of asthma stop smoking 8 months ago has been having difficulty breathing for the past 8 months. Patient does not like doing breathing treatments at home does not like being on steroids as they make him feel dizzy states when he does breathing treatments it makes him cough up blood. Patient has no recent fevers or chest pain MD Complaint: shortness of breath, cough -: week(s) Severity: moderate Severity scale (1-10): 4 Consistency: constant Improves With: rest Worsens With: exertion Known History Of: COPD, asthma Context: recent URI, recent illness Associated Symptoms: cough, sputum production - Related Data Home Medications Medication Instructions Recorded Confirmed Venlafaxine HCl ER [Effexor XR] 225 mg PO DAILY 06/16/22 10/24/24 Naproxen Sodium [Aleve] 440 mg PO Q8H PRN 10/24/24 10/24/24 Previous Rx's Medication Instructions Recorded Mirtazapine [Remeron] 30 mg PO HS #10 tab 09/01/23 OXcarbazepine [Trileptal] 300 mg PO BID #20 tab 09/01/23 busPIRone HCL 15 mg PO TID #30 tab 09/01/23 Albuterol Inhaler [Ventolin Hfa 1 - 2 puff INHALATION Q4HR PRN #1 10/24/24 Inhaler] each Azithromycin [Zithromax Z Pack] 1 tab PO DIRECTED #6 tab 10/24/24 predniSONE 50 mg PO DAILY #5 tab 10/24/24 Albuterol Sulfate [Ventolin HFA] 1 - 2 puff INHALATION Q6H PRN #1 03/24/25 each Azithromycin [Zithromax] 250 mg PO DAILY 4 Days #4 tab 03/24/25 predniSONE [Deltasone] 40 mg PO DAILY 5 Days #10 tab 03/24/25 Allergies Allergy/AdvReac Type Severity Reaction Status Date / Time Influenza Virus Vaccines Allergy Rash/Hives Verified 04/02/25 12:35 Penicillins Allergy Anaphylaxis Verified 04/02/25 12:35 pneumococcal vaccine Allergy Nausea & Verified 04/02/25 12:35 Vomiting Review of Systems ROS Statement: Those systems with pertinent positive or pertinent negative responses have been documented in the HPI. ROS Other: All systems not noted in ROS Statement are negative. Past Medical History Past Medical History: COPD, Hearing Disorder / Deafness, Hypertension, Osteoarthritis (OA) Additional Past Medical History / Comment(s): deaf in left ear History of Any Multi-Drug Resistant Organisms: None Reported Past Surgical History: Hernia Repair, Orthopedic Surgery Additional Past Surgical History / Comment(s): LT SHOULDER SX Past Anesthesia/Blood Transfusion Reactions: No Reported Reaction Past Psychological History: Bipolar, Depression Smoking Status: Current some day smoker Past Alcohol Use History: None Reported Past Drug Use History: None Reported - Past Family History Mother History Unknown: Yes Additional Family Medical History / Comment(s): ADOPTED-FAMILY HX UNKNOWN General Exam Limitations: no limitations General appearance: alert, in no apparent distress Head exam: Present: atraumatic, normocephalic, normal inspection Eye exam: Present: normal appearance, PERRL, EOMI. Absent: scleral icterus, conjunctival injection, periorbital swelling ENT exam: Present: normal exam, mucous membranes moist Neck exam: Present: normal inspection. Absent: tenderness, meningismus, lymphadenopathy Respiratory exam: Present: normal lung sounds bilaterally. Absent: respiratory distress, wheezes, rales, rhonchi, stridor Cardiovascular Exam: Present: regular rate, normal rhythm, normal heart sounds. Absent: systolic murmur, diastolic murmur, rubs, gallop, clicks GI/Abdominal exam: Present: soft, normal bowel sounds. Absent: distended, tenderness, guarding, rebound, rigid Extremities exam: Present: normal inspection, full ROM, normal capillary refill. Absent: tenderness, pedal edema, joint swelling, calf tenderness Back exam: Present: normal inspection Neurological exam: Present: alert, oriented X3, CN II-XII intact Psychiatric exam: Present: normal affect, normal mood Skin exam: Present: warm, dry, intact, normal color. Absent: rash Course Vital Signs 04/02/25 04/02/25 04/02/25 12:35 12:36 13:01 Temperature 98.6 F Pulse Rate 104 H Respiratory 20 20 20 Rate Blood Pressure 169/94 O2 Sat by Pulse 96 Oximetry 04/02/25 15:41 Temperature 98.9 F Pulse Rate 99 Respiratory 20 Rate Blood Pressure 181/92 O2 Sat by Pulse 96 Oximetry - Reevaluation(s) Reevaluation #1: 04/02/25 14:18 Medical records reviewed Reevaluation #2: 04/02/25 15:34 Patient symptoms unchanged here in the ER Reevaluation #3: 04/02/25 15:35 Patient informed of results and questions answered Reevaluation #4: Was pt. sent in by a medical professional or institution (, [place], IT OPERATIONS MANAGER, urgent care, hospital, or alf...) When possible be specific @ -no Did you speak to anyone other than the patient for history (EMS, parent, family, police, friend...)? What history was obtained from this source @ -no Did you review nursing and triage notes (agree or disagree)? Why? @ -agree Are old charts reviewed (outside hosp., previous admission, EMS record, old EKG, old radiological studies, urgent care reports/EKG's, alf records)? Report findings @ -yes Differential Diagnosis (chest pain, altered mental status, abdominal pain women, abdominal pain men, vaginal bleeding, weakness, fever, dyspnea, syncope, headache, dizziness, GI bleed, back pain, seizure, CVA, palpatations, mental health, musculoskeletal)? @ -prior EKG interpreted by me (3pts min.). @ -yes X-rays interpreted by me (1pt min.). @ -yes negative for acute disease CT interpreted by me (1pt min.). @ -no U/S interpreted by me (1pt. min.). @ -no What testing was considered but not performed or refused? (CT, X-rays, U/S, labs)? Why? @ -none What meds were considered but not given or refused? Why? @ -none Did you discuss the management of the patient with other professionals (professionals i.e. [place] Ortega, IT OPERATIONS MANAGER, lab, RT, psych nurse, group social worker, family living educator, teacher, collections officer, counseling case manager)? Give summary @ -no Was smoking cessation discussed for >3mins.? @ -no Was critical care preformed (if so, how long)? @ -no Were there social determinants of health that impacted care today? How? (Homelessness, low income, unemployed, alcoholism, drug addiction, tra nsportation, low edu. Level, literacy, decrease access to med. care, shelter, rehab)? @ -none Was there de-escalation of care discussed even if they declined (Discuss DNR or withdrawal of care, Hospice)? DNR status @ -no What co-morbidities impacted this encounter? (DM, HTN, Smoking, COPD, CAD, C[place] r, CVA, ARF, Chemo, Hep., AIDS, mental health diagnosis, sleep apnea, morbid obesity)? @ -none Was patient admitted / discharged? Hospital course, mention meds given and route, prescriptions, significant lab abnormalities, going to OR and other pertinent info. @ - 64 male to the ER for evaluation patient [facility] for evaluation of shortness of breath, throughout ER stay patient refuses breathing treatments refuses steroids, patient will be discharged home Discharge Undiagnosed new problem with uncertain prognosis? @ -no Drug Therapy requiring intensive monitoring for toxicity (Heparin, Nitro, Insulin, Cardizem)? @ -no Were any procedures done? @ -no Diagnosis/symptom? @ -Chest pain Acute, or Chronic, or Acute on Chronic? @ -Acute Uncomplicated (without systemic symptoms) or Complicated (systemic symptoms)? @ -Complicated Side effects of treatment? @ -no Exacerbation, Progression, or Severe Exacerbation? @ -exacerbation Poses a threat to life or bodily function? How? (Chest pain, [place], [place], pneumonia, PE, COPD, DKA, ARF, appy, cholecystitis, CVA, Diverticulitis, Homicidal, Luzmaria cidal, threat to staff... and all critical care pts) @ -yes with chest pain Reevaluation #5: Differential Dyspnea: Coronary syndrome, arrhythmia, tamponade, asthma, COPD, pulmonary embolism, pneumonia, pneumothorax, pulmonary effusion, anaphylaxis, diabetic ketoacidosis, flailed chest, pulmonary contusion, diaphragmatic rupture, anemia, neuromuscular, this is not meant to be an all-inclusive list. Medical Decision Making - Medical Decision Making 64 male to the ER for evaluation patient [facility] for evaluation of shortness of breath, throughout ER stay patient refuses breathing treatments refuses steroids, patient will be discharged home - Lab Data Result diagrams: 04/02/25 13:00 04/02/25 13:00 Lab Results 04/02/25 04/02/25 04/02/25 Range/Units 13:00 13:00 13:00 WBC 5.33 (4.50-10.00) 10*3/uL RBC 4.18 L (4.40-5.60) 10*6/uL Hgb 13.8 (13.0-17.0) g/dL Hct 39.6 (39.6-50.0) % MCV 94.7 (80.0-97.0) fL MCH 33.0 H (27.0-32.0) pg MCHC 34.8 (32.0-37.0) g/dL Plt Count 244 (140-440) 10*3/uL MPV 9.0 L (9.5-12.2) fL Immature Gran % (Auto) 0.6 % Neutrophils % 39.4 % Lymphocytes % 47.3 % Monocytes % 8.8 % Eosinophils % 2.4 % Basophils % 1.5 % Immature Gran # 0.03 (0.00-0.04) 10*3/uL Neutrophils # 2.10 (1.80-7.70) 10*3/uL Lymphocytes # 2.52 (0.90-5.00) 10*3/uL Monocytes # 0.47 (0.20-1.00) 10*3/uL Eosinophils # 0.13 (0.04-0.35) 10*3/uL Basophils # 0.08 (0.00-0.10) 10*3/uL PT 10.8 (10.0-12.5) sec INR 1.0 (<1.2) APTT 23.9 (22.0-30.0) sec Sodium 136 L (137-145) mmol/L Potassium 4.4 (3.5-5.1) mmol/L Chloride 99 (98-107) mmol/L Carbon Dioxide 28 (22-30) mmol/L Anion Gap 9 mmol/L BUN 13 (9-20) mg/dL Creatinine 0.68 (0.66-1.25) mg/dL Est GFR (CKD-EPI)AfAm >90 (>60 ml/min/1.73 sqM) Est GFR (CKD-EPI)NonAf >90 (>60 ml/min/1.73 sqM) Glucose 88 (74-99) mg/dL Plasma Lactic Acid Zay (0.7-2.0) mmol/L Calcium 9.2 (8.4-10.2) mg/dL Magnesium 2.1 (1.6-2.3) mg/dL Total Bilirubin 0.5 (0.2-1.3) mg/dL AST 29 (17-59) U/L ALT 25 (4-49) U/L Alkaline Phosphatase 95 (38-126) U/L Troponin I (0.000-0.034) ng/mL NT-Pro-B Natriuret Pep 87 pg/mL Total Protein 7.8 (6.3-8.2) g/dL Albumin 4.9 (3.5-5.0) g/dL 04/02/25 04/02/25 Range/Units 13:00 13:00 WBC (4.50-10.00) 10*3/uL RBC (4.40-5.60) 10*6/uL Hgb (13.0-17.0) g/dL Hct (39.6-50.0) % MCV (80.0-97.0) fL MCH (27.0-32.0) pg MCHC (32.0-37.0) g/dL Plt Count (140-440) 10*3/uL MPV (9.5-12.2) fL Immature Gran % (Auto) % Neutrophils % % Lymphocytes % % Monocytes % % Eosinophils % % Basophils % % Immature Gran # (0.00-0.04) 10*3/uL Neutrophils # (1.80-7.70) 10*3/uL Lymphocytes # (0.90-5.00) 10*3/uL Monocytes # (0.20-1.00) 10*3/uL Eosinophils # (0.04-0.35) 10*3/uL Basophils # (0.00-0.10) 10*3/uL PT (10.0-12.5) sec INR (<1.2) APTT (22.0-30.0) sec Sodium (137-145) mmol/L Potassium (3.5-5.1) mmol/L Chloride (98-107) mmol/L Carbon Dioxide (22-30) mmol/L Anion Gap mmol/L BUN (9-20) mg/dL Creatinine (0.66-1.25) mg/dL Est GFR (CKD-EPI)AfAm (>60 ml/min/1.73 sqM) Est GFR (CKD-EPI)NonAf (>60 ml/min/1.73 sqM) Glucose (74-99) mg/dL Plasma Lactic Acid Zay 0.8 (0.7-2.0) mmol/L Calcium (8.4-10.2) mg/dL Magnesium (1.6-2.3) mg/dL Total Bilirubin (0.2-1.3) mg/dL AST (17-59) U/L ALT (4-49) U/L Alkaline Phosphatase (38-126) U/L Troponin I <0.012 (0.000-0.034) ng/mL NT-Pro-B Natriuret Pep pg/mL Total Protein (6.3-8.2) g/dL Albumin (3.5-5.0) g/dL - EKG Data -: EKG Interpreted by Me (EKG is sinus 72 VA 154 QRS 98 QTc 412) - Radiology Data Radiology results: report reviewed (Chest x-ray is negative for acute disease), image reviewed Disposition Clinical Impression: COPD exacerbation Disposition: HOME SELF-CARE Condition: Fair Instructions (If sedation given, give patient instructions): Acute Bronchitis (ED), Chronic Bronchitis (ED) Is patient prescribed a controlled substance at d/c from ED?: No Referrals: None,Stated [Primary Care Provider] - 1-2 days Time of Disposition: 15:30
[2025-04-02] MEDS: methylPREDNISolone SOD SUCCI 125 MG/2 ML VIAL IV STA (12:59)
[2025-04-02] MEDS: SODIUM CHLORIDE 0.9% 1,000 ML IV SCH (13:00)
[2025-04-02 13:17] LABS: Basophils # (A) 0.08 10*3/uL (0.00-0.10); Basophils % (A) 1.5 %; Eosinophils # (A) 0.13 10*3/uL (0.04-0.35); Eosinophils % (A) 2.4 %; HCT 39.6 % (39.6-50.0); HGB 13.8 g/dL (13.0-17.0); Lymphocytes # (A) 2.52 10*3/uL (0.90-5.00); Lymphocytes % (A) 47.3 %; MCH 33.0 pg (27.0-32.0); MCHC 34.8 g/dL (32.0-37.0); MCV 94.7 fL (80.0-97.0); Monocytes # (A) 0.47 10*3/uL (0.20-1.00); Monocytes % (A) 8.8 %; Neutrophils # (A) 2.10 10*3/uL (1.80-7.70); Neutrophils % (A) 39.4 %; Platelet Count 244 10*3/uL (140-440); RBC 4.18 10*6/uL (4.40-5.60); RDW 12.7 % (11.5-14.5); WBC 5.33 10*3/uL (4.50-10.00)
[2025-04-02 13:27] LABS: INR 1.0 (<1.2); Partial Thromboplastin Time 23.9 sec (22.0-30.0); Prothrombin Time 10.8 sec (10.0-12.5)
[2025-04-02 13:30] LABS: ALT 25 U/L (4-49); AST 29 U/L (17-59); African American GFR (CKD) >90 (>60 ml/min/1.73 sqM); Albumin 4.9 g/dL (3.5-5.0); Alkaline Phosphatase 95 U/L (38-126); Anion Gap 9 mmol/L; Blood Urea Nitrogen 13 mg/dL (9-20); Calcium 9.2 mg/dL (8.4-10.2); Carbon Dioxide 28 mmol/L (22-30); Chloride 99 mmol/L (98-107); Glucose 88 mg/dL (74-99); Magnesium 2.1 mg/dL (1.6-2.3); Non-African American GFR(CKD) >90 (>60 ml/min/1.73 sqM); Potassium 4.4 mmol/L (3.5-5.1); Sodium 136 mmol/L (137-145); Total Protein 7.8 g/dL (6.3-8.2)
[2025-04-02] MEDS: IPRATROPIUM-ALBUTEROL 3 ML NEB INHALATION STA (13:30)
--- NOTE | 2025-04-02 13:30 | XR ---
EXAMINATION TYPE: XR chest 2V DATE OF EXAM: 04/02/2025 COMPARISON: 03/24/2025 CLINICAL INDICATION: Male, 64 years old with history of difficulty breathing; , TECHNIQUE: XR chest 2V views of the chest. FINDINGS: Emphysematous changes with apical pleural thickening. Prominence the pulmonary arteries likely relate d to pulmonary arterial hypertension. Nodular density right apex is similar although there is a vague 1.5 cm nodule the right lower lobe. Osteopenia, arthropathy of the shoulders and degenerative change of the spine. Chronic rib deformities. IMPRESSION: 1. COPD with stable apical thickening and nodularity. 2. Persistent nodular vague density right lower lobe. Underlying pulmonary nodule or mass not exclude d recommend CT scan [facility] Bridget Best, , 04/02/2025 1:28 PM
[2025-04-02 13:39] LABS: NT-Pro-B-Type Natriuretic Pept 87 pg/mL
[2025-04-02 15:46] VITALS: BP 181/92; PULSE 99; TEMP 98.9
== END 2025-04-02 15:51 | disposition home or self-care (01) ==
LOC: EC 12:29
CPT/HCPCS: 36415; 71046; 80053; 83605; 83735; 83880; 84484; 85025; 85610; 85730; 93005; 96361; 96374; 99285